=== PATIENT | female | born 1935 | race Caucasian/White ===

== ENCOUNTER → 2018-03-20 09:53 | Outpatient (CLI) | payer MEDICARE, BC, SELFPAY ==
[2018-03-20 12:36] LABS: Anion Gap 7 (5-15); BUN 11 mg/dL (7-18); BUN/Creat Ratio 12.7 RATIO (10-20); Calcium,Total 9.2 mg/dL (8.5-10.1); Chloride 107 mmol/L (98-107); Cholesterol 199 mg/dL (200); Creatinine, Serum 0.86 mg/dL (0.55-1.02); EST Glomerular Filtration Rate 67 mL/min (>60); Est Glom Filt Rate - Afr Amer 81 mL/min (>60); Glucose 93 mg/dL (74-106); High Density Lipoprotein 61 mg/dL; Potassium 4.1 mmol/L (3.5-5.1); Sodium Level 143 mmol/L (136-145); Triglycerides 112 mg/dL; Very Low Density Lipoprotein 22 mg/dL (5-40)
[2018-03-20 13:08] LABS: Microalbumin,Random Urine 34.4 mg/L (NO RANGE EST.); Microalbumin:Creatinine Ratio 15.4 mg/g CRE (<30 mg/g CRE)
== END ==
PROVIDERS: Visit Provider Family Medicine
DX: I10 Essential (primary) hypertension (principal)
CPT/HCPCS: 36415; 80048; 80061; 82043; 82570

== ENCOUNTER → 2018-03-27 07:46 | Outpatient (CLI) | payer MEDICARE, BC, SELFPAY ==
--- NOTE | 2018-03-27 07:49 | CDU_ITS ---
Reason For Study: occlusion of left carotid artery Rt. Velocities/BP Lt. Velocities/BP Prox CCA 109.6/24.6 cm/sec. Prox CCA 810.5/18.8 cm/sec. Mid CCA 108/25.2 cm/sec. Mid CCA 74.5/19.3 cm/sec. Dist CCA 75.0/17.0 cm/sec. Dist CCA 78.6/19.9 cm/sec. Prox ICA 66.8/12.3 cm/sec. Prox ICA 74.5/14.1 cm/sec. Mid ICA 75.0/19.9 cm/sec. Mid ICA 51.0/18.2 cm/sec. Dist ICA 65.3/24.1 cm/sec. Dist ICA 73.4/25.5 cm/sec. Rt. ICA/CCA = .7. Lt. ICA/CCA = 1.0. Prox ECA 76.8/10.6 cm/sec. Prox ECA 69.8/14.1 cm/sec. Rt. Vert. 46.9/15.8 cm/sec. Lt. Vert. 58.0/17.0 cm/sec. Right Extracranial There is intimal thickening but no significant atherosclerotic plaque noted in the right common carotid artery. There is intimal thickening but no significant atherosclerotic plaque noted in the right internal carotid artery. There is intimal thickening but no significant atherosclerotic plaque noted in the right external carotid artery. Antegrade flow is noted in the right vertebral artery. Left Extracranial There is intimal thickening but no significant atherosclerotic plaque noted in the left common carotid artery. There is heterogeneous, irregular atherosclerotic plaque noted in the left internal carotid artery. There is intimal thickening but no significant atherosclerotic plaque noted in the left external carotid artery. Antegrade flow is noted in the left vertebral artery. Procedure Carotid Duplex [id number]. The exam was diagnostic. Exam performed in department. Interpretation Summary No significant atherosclerotic plaque or stenosis noted in the right internal carotid artery. Mild (<50%) stenosis left extracranial internal carotid. Flow within the vertebral arteries is antegrade bilaterally. Ordering Physician: Tawanda Muñiz Performed By: Lucio Arana RVT
== END ==
PROVIDERS: Family Provider Family Medicine; PCP Family Medicine; Visit Provider Family Medicine
DX: I65.22 Occlusion and stenosis of left carotid artery (principal)
CPT/HCPCS: 93880

== ENCOUNTER → 2018-07-26 14:24 | Outpatient (CLI) | payer MEDICARE, BC, SELFPAY ==
[2018-07-26 16:15] LABS: Anion Gap 8 (5-15); BUN 13 mg/dL (7-18); BUN/Creat Ratio 13.2 RATIO (10-20); Calcium,Total 9.6 mg/dL (8.5-10.1); Chloride 105 mmol/L (98-107); Creatinine, Serum 0.98 mg/dL (0.55-1.02); EST Glomerular Filtration Rate 57 mL/min (>60); Est Glom Filt Rate - Afr Amer 70 mL/min (>60); Glucose 73 mg/dL (74-106); Magnesium 2.2 mg/dL (1.6-2.6); Potassium 3.8 mmol/L (3.5-5.1); Sodium Level 142 mmol/L (136-145); Thyroid Stim Hormone (TSH) 1.62 uIU/mL (0.358-3.74)
== END ==
PROVIDERS: Family Provider Family Medicine; PCP Family Medicine; Visit Provider Family Medicine
DX: I49.9 Cardiac arrhythmia, unspecified (principal)
CPT/HCPCS: 36415; 80048; 83735; 84443

== ENCOUNTER → 2018-09-07 10:21 | Outpatient (CLI) | payer MEDICARE, BC, SELFPAY ==
[2015-11-13 16:00] VITALS: BMI 24.0
[2018-09-07 12:25] LABS: Cholesterol 189 mg/dL (200); High Density Lipoprotein 73 mg/dL; Triglycerides 101 mg/dL; Very Low Density Lipoprotein 20 mg/dL (5-40)
== END ==
PROVIDERS: Family Provider Family Medicine; PCP Family Medicine; Visit Provider Family Medicine
DX: I70.91 Generalized atherosclerosis (principal)
CPT/HCPCS: 36415; 80061

== ENCOUNTER 2019-02-24 16:38 | Emergency (ER) | payer MEDICARE, BC, SELFPAY ==
[2019-02-24 16:38] VITALS: BP 146/92; PULSE 79; RESP 16; TEMP 37; O2SAT 94; BMI 22.2
--- NOTE | 2019-02-24 18:31 | EKG12_ITS ---
Test Reason : Blood Pressure : / mmHG Vent. Rate : 068 BPM Atrial Rate : 068 BPM P-R Int : 148 ms QRS Dur : 072 ms QT Int : 392 ms P-R-T Axes : 041 018 037 degrees QTc Int : 416 ms Normal sinus rhythm Normal ECG Confirmed by CELINE GILBERT, KAYDEN ([id number]), editorial project manager RASHEED LOPEZ ([id number]) on 02/28/2019 9:09:19 AM Referred By: TINO Confirmed By:KAYDEN BERGER MD
--- NOTE | 2019-02-24 18:34 | ED.DCSUM_ITS ---
- ER Visit Summary Date of Service: 02/24/19 Chief Complaint: Back pain History of Present Illness: The patient is a 83 F who presents for thoracic back pain that started last evening and now is radiating around to the bilateral lateral lower chest/upper abdomen. Patient has no history of injury. Pain is worse with movement and breathing. Improved with sitting still. Pain is gradually worsening. She denies any fever, shortness of breath, cough, nausea, vomiting, diarrhea or urinary symptoms. Patient has a history of hypothyroidism, asthma, hypertension, GERD. She does not smoke. Physical Examination: Vital signs: afebrile, hemodynamically stable, no hypoxia on room air General: well nourished, well developed, in no distress, significant kyphosis, petite habitus Skin: warm, dry, no rash, no pallor HEENT: normocephalic and atraumatic; PERRL, EOMI, moist mucous membranes Cardiovascular: regular rate and rhythm with systolic murmurs, no peripheral edema, 2+ pulses all distal extremities Respiratory: No increased work of breathing, lungs are clear to auscultation bilaterally, no rales, rhonchi or wheezing Abdominal: Abdomen is soft, nontender with normoactive bowel sounds, no guarding or rebound, no masses MSK: Moves all extremities, no deformities, normal strength; no midline tenderness deformities or step-offs of the thoracic or lumbar spine, no paraspinal muscular tenderness, no rash noted to the torso Neuro: Awake and alert, oriented ?4. No facial droop, sensation and motor function intact and symmetric Test Results: Abnormal Lab Results 02/24/19 02/24/19 02/24/19 18:40 18:40 18:45 WBC 8.4 RBC 4.14 L Hgb 13.0 Hct 39.3 MCV 94.9 MCH 31.4 MCHC 33.1 RDW 12.7 RDW Differential 43.8 Plt Count 194 MPV 9.8 Immature Gran % (Auto) 0.200 Neut % (Auto) 72.8 H Lymph % (Auto) 13.3 L [place] % (Auto) 8.3 Eos % (Auto) 5.2 H Baso % (Auto) 0.2 Absolute Neuts (auto) 6.1 Absolute Lymphs (auto) 1.12 Total Counted Not Reportable Sodium 144 Potassium 4.0 Chloride 108 H Carbon Dioxide 28.0 Anion Gap 8 BUN 11 Creatinine 0.84 Estim Creat Clear Calc 39.97 Est GFR (MDRD) Af Amer 83 Est GFR (MDRD) Non-Af 68 BUN/Creatinine Ratio 13.0 Glucose 99 Calcium 9.5 Total Bilirubin 0.40 AST 14 L ALT 26 Alkaline Phosphatase 92 Troponin I < 0.015 Total Protein 7.1 Albumin 3.7 Globulin 3.4 Albumin/Globulin Ratio 1.1 Lipase 128 Urine Color Yellow Urine Clarity Sl. Cloudy Urine pH 6.0 Ur Specific [place] 1.015 Urine Protein Negative Urine Glucose (UA) Normal Urine Ketones 50 H Urine Occult Blood 10 H Urine Nitrite Negative Urine Bilirubin Negative Urine Urobilinogen Normal Ur Leukocyte Esterase 500 H Urine RBC 0 SEEN Urine WBC 50-100 SEEN Ur Squamous Epith Cells 0 SEEN Urine Bacteria 2+ Urine Mucus 0 SEEN Clinical Impression(s) from Imaging Studies Chest X-Ray 02/24/19 18:50 IMPRESSION: Cardiomegaly with hyperexpansion. No acute finding. Electronically Signed: Jose G Talavera MD at 19:12 EDT , Service support , Medications Given Discontinued Medications Cephalexin (Keflex) 500 mg PO X1 ONE Stop: 02/24/19 20:21 Last Admin: 02/24/19 20:27 Dose: 500 mg Emergency Department Course and Treatment: Patient was offered and declined pain medication. She had no findings on physical exam consistent with obvious musculoskeletal pain. Because of the pain in the thoracic back radiating around into the lower chest/upper abdomen, work-up was performed. EKG showed a sinus rhythm with no ischemic changes. Troponin negative. CBC and BMP were unremarkable. No hepatic abnormalities. Chest x-ray showed no acute process. Urinalysis was consistent with UTI. Patient had initially denied any urinary symptoms, and we discussed that because of her petite build and the kyphosis, interpretation of intra-abdominal pain may be more difficult to interpret. She states that now she remembers she has had prior UTIs in which she felt more upper back pain. Patient was started on Keflex for treatment of UTI. Patient was discharged home with return precautions. Treatment Plan: [] Disposition: [] Impression: UTI, concern for early pyelonephritis This note was generated with [employer] software. It may contain incorrect words, spelling, and punctuation that were not noted in review of the chart prior to signing ED Disposition - Plan for ED Patient: Disposition: Home or Assisted Living Instructions: ED UTI Cystitis Female Prescriptions: Cephalexin [Keflex] 500 mg PO Q12 #20 cap Referrals: Tawanda Muñiz MD [Primary Care Provider] - 1-2 Days if not improving Additional Instructions: Take the antibiotic twice daily as prescribed for the full 10 days, even if you feel better before the medication is complete. You may use [id number] pain medication as needed for pain. If you are not having improvement after 2 to 3 days of antibiotics, please follow-up with your doctor for another evaluation. If at any time your condition worsens or you have any new or co ncerning symptoms, please return immediately to the emergency department for another evaluation.
--- NOTE | 2019-02-24 18:50 | RAD_ITS ---
STUDY: X-RAY CHEST REASON FOR EXAM: Female, 83 years old. Back pain. Shortness of breath. TECHNIQUE: Frontal and lateral views of the chest. COMPARISON: None. FINDINGS: The lungs are hyperexpanded. There is no demonstrated pleural abnormality. There is cardiomegaly. Normal mediastinum and keaton. Normal visualized pulmonary arteries. There is atherosclerotic calcification of the aortic arch with tortuosity. There is thoracic osteopenia with marked anterior wedge compression deformity of a midthoracic vertebral body with substantial increased kyphosis. Normal visualized ribs, clavicles, and shoulders. There is a hiatal hernia. RAD/Chest PA and Lateral IMPRESSION: Cardiomegaly with hyperexpansion. No acute finding. Electronically Signed: Jose G Talavera MD at 19:12 EDT , Service support ,
[2019-02-24 18:53] LABS: Mucous, Urine 0 SEEN /hpf (<or=2+); Red Blood Cells-Urine 0 SEEN /hpf (0-5); Squamous Epithelial Cells - UA 0 SEEN /hpf (5-10)
[2019-02-24 18:54] LABS: Absolute Lymphocyte Count 1.12 X10^3/ul (0.83-4.51); Absolute Neutrophil Count 6.1 X10^3/uL (2.0-7.7); Basophil# 0.02 X10^3/uL; Basophil% 0.2 % (0-1); Eosinophil# 0.44 X10^3/uL; Eosinophils% 5.2 % (0-5); Hematocrit 39.3 % (37-47); Lymphocyte # 1.12 X10^3/ul (4.0); Lymphocyte % 13.3 % (19-41); Mean Corp Hgb Conc 33.1 g/gl (32-36); Mean Corpuscular Hgb 31.4 pg (27.0-32.0); Mean Corpuscular Volume 94.9 fL (81-99); Mean Platelet Vol. 9.8 fl (6.2-12.0); Monocyte% 8.3 % (0-10); Neutrophil % 72.8 % (47-70); Platelet Count 194 K/mm3 (150-450); RBC Distribution Width CV 12.7 % (11.6-14.6); RBC Distribution Width SD 43.8 fl (35.1-43.9); Red Blood Count 4.14 M/mm3 (4.2-5.4); White Blood Count 8.4 K/mm3 (4.4-11.0)
[2019-02-24 18:55] LABS: POSITIVE COUNT NO; POSITIVE DIFFERENTIAL NO; POSITIVE MORPHOLOGY NO
[2019-02-24 18:55] LABS: Color, Urine Yellow (Yellow); Glucose, Dipstick Normal (Normal); Ketone-Dipstick 50 mg/dl (Negative); Leukocyte Esterase-Dipstick 500 /ul (Negative); Nitrite-Dipstick Negative (Negative); Occult Blood-Urine 10 /ul (Negative); Protein-Dipstick Negative (Negative); Specific Gravity, Urine 1.015 (1.002-1.030); Urine Bilirubin Dipstick Negative (Negative); Urine Clarity Sl. Cloudy (Clear); Urine Urobilinogen Normal (Normal)
[2019-02-24 19:11] LABS: White Blood Cells 50-100 SEEN /hpf (0-5)
[2019-02-24 19:12] LABS: Bacteria 2+ /hpf (None Seen)
[2019-02-24 19:13] LABS: ALB/GLOB Ratio 1.1 RATIO (0.9-2.4); AST(SGOT) 14 U/L (15-37); Alanine Aminotransfer ALT/SGPT 26 U/L (13-56); Albumin, Serum 3.7 g/dL (3.2-5.0); Alkaline Phosphatase 92 U/L (45-117); Anion Gap 8 (5-15); BUN 11 mg/dL (7-18); Calcium,Total 9.5 mg/dL (8.5-10.1); Chloride 108 mmol/L (98-107); Creatinine, Serum 0.84 mg/dL (0.55-1.02); EST Glomerular Filtration Rate 68 mL/min (>60); Est Glom Filt Rate - Afr Amer 83 mL/min (>60); Estimated Creatinine Clearance 39.97 ml/min; Globulin 3.4 g/dL (2.2-4.2); Glucose 99 mg/dL (74-106); Lipase 128 U/L (73-393); Protein, Total 7.1 g/dL (6.4-8.2); Sodium Level 144 mmol/L (136-145)
[2019-02-24] MEDS: Cephalexin 250 MG Capsule 500 MG PO (20:27)
[2019-02-24 20:28] VITALS: BP 144/98; PULSE 79; RESP 17; O2SAT 100
--- NOTE | 2019-02-24 20:31 | ED.RN ---
IV DC'ED, CATHETER INTACT, SMALL GAUZE DRESSING PLACED. DISCHARGE INSTRUCTIONS GIVEN TO AND REVIEWED WITH PATIENT, PATIENT DENIES QUESTIONS OR CONCERNS AND VOICES UNDERSTANDING OF DISCHARGE INSTRUCTIONS. PT AMBULATES OUT OF ROOM WITHOUT DIFFICULTY.
== END 2019-02-24 20:32 | disposition home or self-care (01) ==
PROVIDERS: Emergency Provider Emergency Medicine; Family Provider Family Medicine; PCP Family Medicine
DX: N39.0 Urinary tract infection, site not specified (principal); N12 Tubulo-interstitial nephritis, not specified as acute or chronic; M40.209 Unspecified kyphosis, site unspecified; R01.1 Cardiac murmur, unspecified; I11.9 Hypertensive heart disease without heart failure; E03.9 Hypothyroidism, unspecified; J45.909 Unspecified asthma, uncomplicated; K21.9 Gastro-esophageal reflux disease without esophagitis; Z87.440 Personal history of urinary (tract) infections; Z79.899 Other long term (current) drug therapy
CPT/HCPCS: 71046; 80053; 81001; 83690; 84484; 85025; 87077; 87086; 87088; 87186; 93005; 99284

== ENCOUNTER → 2019-03-01 | Outpatient (CLI) | payer MEDICARE, BC, SELFPAY ==
[2019-02-24 16:38] VITALS: BMI 22.2
--- NOTE | 2019-03-01 15:55 | CT_ITS ---
STUDY: CT CHEST WITHOUT CONTRAST REASON FOR EXAM: Female, 83 years old. Pain RADIATION DOSAGE (If Supplied By Facility): DLP = ( 603.35 ) mGycm TECHNIQUE: Transaxial imaging was performed without the administration of intravenous contrast material. Coronal and sagittal reformatted images were created. Individualized dose optimization techniques were used for this CT. COMPARISON: Chest x-ray February 24, 2019. FINDINGS: There are no pulmonary infiltrates or pleural effusions. There are no pulmonary nodules or masses. There is no pneumothorax. The heart and pericardium are within normal limits. There is no thoracic lymphadenopathy. There is no evidence of thoracic aortic aneurysm. There is a large hiatal hernia. There is exaggerated thoracic kyphosis. Multiple compression fractures of the thoracic spine are present. These correspond in appearance to the comparison chest x-ray. There is stable retrolisthesis at the lower thoracic spine, also corresponding to that seen on comparison chest x-ray. Multilevel osteophytosis and disc space loss is present. CT/Chest without Contrast IMPRESSION: No acute pathology in the chest. Large hiatal hernia. Multilevel degenerative changes with compression fractures and exaggerated thoracic kyphosis as described above. Electronically Signed: Sergio Kumari, at 16:40 EDT Tel , Service support ,
--- NOTE | 2019-03-01 15:55 | CT_ITS ---
STUDY: CT ABDOMEN WITHOUT CONTRAST REASON FOR EXAM: Female, 83 years old. Pain RADIATION DOSAGE (If Supplied By Facility): CTDIvol = ( 10.25 ) mGy, DLP = ( 603.35 ) mGycm TECHNIQUE: Transaxial images were obtained without intravenous contrast, and without oral contrast. Sagittal and coronal images were reconstructed. Individualized dose optimization techniques were used for this CT. COMPARISON: None. FINDINGS: The visualized lung bases are unremarkable. The visualized portions of the heart are within normal limits. Normal liver. Normal gallbladder and extrahepatic biliary system. Normal spleen. Normal pancreas. Normal bilateral adrenal glands. Normal right kidney. Normal left kidney. There is a moderate hiatal hernia. Normal small intestine. Colonic diverticulosis is present. The appendix is visualized and appears normal. Normal abdominal aorta. Normal inferior vena cava. Normal retroperitoneum. Normal abdominal wall. There is an age-indeterminate partial compression fracture of the L1 vertebral body. Moderate to prominent degenerative changes are present from T12 through L2. Minimal retrolisthesis is present at the T12-L1 level, and L1-L2 level. There is exaggerated thoracic kyphosis. CT/Abdomen without IV Contrast IMPRESSION: No acute intra-abdominal pathology identified. Nonacute findings as described above. Electronically Signed: Sergio Kumari, at 16:31 EDT Tel , Service support ,
== END | disposition home or self-care (01) ==
LOC: CT 15:52
PROVIDERS: Family Provider Family Medicine; PCP Family Medicine; Referring Provider Family Medicine; Visit Provider Family Medicine
DX: M54.9 Dorsalgia, unspecified (principal)
CPT/HCPCS: 71250; 74150

== ENCOUNTER → 2019-03-06 | Outpatient (CLI) | payer MEDICARE, BC, SELFPAY ==
[2019-02-24 16:38] VITALS: BMI 22.2
--- NOTE | 2019-03-06 09:59 | NM_ITS ---
CLINICAL: 83-year-old female with reported history of thoracic-lumbar spine compression fractures. WHOLE BODY 99m Tc MDP RADIONUCLIDE BONE SCINTIGRAPHY COMPARISON: CT of the chest and abdomen reports 03/01/2019 FINDINGS: Following the intravenous administration of 25.6 mCi of 99m Tc MDP, whole body bone images reveal: 1. Increased radiopharmaceutical concentration is diffusely defined at the level of the ninth thoracic vertebra. 2. Enhanced uptake is identified in the 12th thoracic vertebra posteriorly on the left and right, first-fourth lumbar vertebra posteriorly on the left, third thoracic vertebra posteriorly on the right, fourth thoracic vertebra posteriorly on the left, sternoclavicular compartment of both shoulders, acromioclavicular compartment of the left shoulder, the left hand, bilateral knees, the right midfoot. 3. The remaining skeletal structures are scintigraphically unremarkable with normal-appearing renal images and urinary bladder activity identified. An increase in tracer distribution is defined in the bilateral maxilla and inter-orbital aspect of the calvarium most consistent with periostitis. NM/Bone Scan Whole Body IMPRESSION: 1. The increased radiopharmaceutical concentration visualized in the ninth thoracic vertebra is most consistent with trauma-compression fracture. In patients > 65 years of age, increased radiopharmaceutical concentration on bone scintigraphy in uncomplicated documented fracture, may take > 18 months for complete resolution. (Manjinder et al, Seminars of [employer] Medicine, 13:104, 1983). 2. 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 Electronically Signed: Moisés Kiser DO at 10:06 EDT Tel , Service support ,
== END | disposition home or self-care (01) ==
LOC: NM 09:55
PROVIDERS: Family Provider Family Medicine; PCP Family Medicine; Referring Provider Family Medicine; Visit Provider Family Medicine
DX: M54.9 Dorsalgia, unspecified (principal)
CPT/HCPCS: 78306

== ENCOUNTER 2019-03-23 10:21 | Day surgery (SDC) | payer MEDICARE, BC, SELFPAY ==
[2019-03-23] VITALS (7 sets, daily range): BP systolic 109–136; BP diastolic 52–81; PULSE 70–95; RESP 16–18; TEMP 36.6–37; O2SAT 94–100; BMI 21.7
--- NOTE | 2019-03-23 12:00 | RAD_ITS ---
STUDY: X-RAY - THORACIC SPINE REASON FOR EXAM: Female, 83 years old. TECHNIQUE: view(s) of the thoracic spine were obtained. COMPARISON: None. FINDINGS: 2 images were done in the OR Two metallic probes noted superimposing the pedicles of L1. Electronically Signed: Kailee Monaco, at 16:19 EDT Tel , Service support , RAD/Thoracic Spine 2 Views
[2019-03-23] MEDS: Bupivacaine Mpf 0.5% 30 ML VIAL (12:45)
[2019-03-23] MEDS: Cefazolin 2 GM in 0.9% Normal Saline 100 ML IV (12:57)
== END 2019-03-23 16:04 | disposition home or self-care (01) ==
LOC: PAT 10:23 → AC 10:24
PROVIDERS: Family Provider Family Medicine; PCP Family Medicine; Referring Provider Anesthesiology Pain Medicine; Visit Provider Anesthesiology Pain Medicine
PROC: (CPT 22513; principal; 2019-03-23 11:45)
DX: M80.08XA Age-related osteoporosis with current pathological fracture, vertebra(e), initial encounter for fracture (principal); M19.90 Unspecified osteoarthritis, unspecified site; K21.9 Gastro-esophageal reflux disease without esophagitis; E07.9 Disorder of thyroid, unspecified; Z79.899 Other long term (current) drug therapy; I10 Essential (primary) hypertension; J45.909 Unspecified asthma, uncomplicated; K44.9 Diaphragmatic hernia without obstruction or gangrene
CPT/HCPCS: 22513; 22515; 72070; 76000; J7120; J2405; J3490

== ENCOUNTER 2019-05-05 09:13 | Emergency (ER) | payer MEDICARE, BC, SELFPAY ==
[2019-03-23 10:49] VITALS: BMI 21.7
[2019-05-05 09:13] VITALS: BP 190/76; PULSE 78; RESP 18; TEMP 37.1; O2SAT 95; BMI 22.4
--- NOTE | 2019-05-05 09:22 | CT_ITS ---
STUDY: CT BRAIN WITHOUT CONTRAST REASON FOR EXAM: Female, 83 years old. Sequela of closed head injury after fall today. RADIATION DOSAGE (If Supplied By Facility): CTDIvol = ( 44.99 ) mGy, DLP = ( 745.49 ) mGycm TECHNIQUE: Transaxial CT imaging of the brain was performed without administration of intravenous contrast material. Multiplanar reformations are submitted for interpretation. Individualized dose optimization techniques were used for this CT. COMPARISON: No relevant priors. FINDINGS: Normal soft tissue structures. Incidental note is made of lytic lesions within the inner table of the occipital bone that may represent prominent arachnoid granulations. There is mild cerebral atrophy with widening of the extra-axial spaces and ventricular dilatation. There are areas of decreased attenuation within the white matter tracts of the supratentorial brain, consistent with microvascular disease changes. Normal basal ganglia and thalami. Normal brainstem. There is mild cerebellar atrophy. There is no intracranial hemorrhage. There is mild atherosclerotic calcification of the intracranial arteries. There is mucoperiosteal thickening within the ethmoid sinuses. 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 CT/Brain/Head without Contrast IMPRESSION: 1. Chronic involutional changes of the brain. 2. No CT evidence of acute intracranial hemorrhage. Electronically Signed: Lolis Wu MD at 11:50 EDT , Service support ,
--- NOTE | 2019-05-05 09:22 | CT_ITS ---
STUDY: CT FACIAL BONES WITHOUT CONTRAST REASON FOR EXAM: Female, 83 years old. Status post fall, pain abrasions RADIATION DOSAGE (If Supplied By Facility): CTDIvol = ( 29.38 ) mGy, DLP = ( 598.88 ) mGycm TECHNIQUE: The patient was scanned in a multi detector CT scanner. Sagittal and coronal images were reconstructed. Individualized dose optimization techniques were used for this CT. COMPARISON: November 03, 2015 CT scan sinuses. FINDINGS: There is visualized and interval development of right perinasal soft tissue edema. There is slight cortical irregularity in the anterior aspect of the left-sided nasal bone that suggests possible prior injury. Normal orbital best and orbital contents. Normal nasal bones and anterior nasal spine. Normal facial bones. There is no demonstrated fracture. There is a hypertrophied calcified appearance of the inferior aspect of the right-sided maxillary sinus stable since prior study with an associated maxillary mucosal retention cyst. There is a stable left side middle turbinate scarlett bullosa. There is mild ethmoid sinus mucosal thickening. There is mild sphenoid and frontal sinus mucosal thickening. There is visualized degenerative change in the cervical spine. CT/Sinus/Facial Bone IMPRESSION: Right side walt- Nasal soft tissue edema. Stable appearing nasal bones with slight cortical irregularity in the left side that suggests prior fracture similar to prior study Mild chronic-appearing sinusitis. Electronically Signed: Jerrica Rivera MD at 11:45 EDT Tel , Service support ,
--- NOTE | 2019-05-05 10:09 | RAD_ITS ---
STUDY: X-RAY - RIGHT WRIST REASON FOR EXAM: Female, 83 years old. Right-sided wrist pain after fall. TECHNIQUE: 3 view(s) of the wrist were obtained. COMPARISON: Prior comparison studies are not available for review at this time. FINDINGS: There is demineralization of the radius and ulna. There is degenerative arthrosis of the radiocarpal articulation. There is a positive ulnar variance. There appears to be undisplaced mildly impacted fracture of the distal radial metaphysis. 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 Appear to be normal intercarpal articulations otherwise. There is degenerative arthrosis of the carpometacarpal articulation of the thumb. Normal second through fifth carpometacarpal articulations. There is demineralization of the metacarpal bones. There is moderate soft tissue swelling. RAD/Wrist min 3 Views IMPRESSION: 1. Acute mildly impacted fracture of the distal radial metaphysis. 2. Osteoporosis. Electronically Signed: Lolis Wu MD at 11:34 EDT , Service support ,
--- NOTE | 2019-05-05 10:09 | RAD_ITS ---
STUDY: X-RAY - RIGHT HAND REASON FOR EXAM: Female, 83 years old. Right-sided hand pain after recent fall. TECHNIQUE: 3 view(s) of the hand. COMPARISON: Radiographs of the right wrist dated May 05, 2019. FINDINGS: There is joint space narrowing of the radiocarpal articulation consistent with degenerative arthrosis. There is a positive ulnar variant of the distal radioulnar articulation. There appears to be mildly impacted fracture of the distal radial metaphysis. There is diffuse demineralization of the carpal bones. 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 There is degenerative arthrosis of the carpometacarpal (CMC) articulation of the thumb. Normal second through fifth carpometacarpal joints. Normal metacarpi. There is degenerative arthrosis of the metacarpophalangeal (MCP) joints. There is degenerative arthrosis of the interphalangeal joint of the thumb with articular joint space narrowing. Normal proximal and distal phalanges of the thumb. Normal metacarpophalangeal joints of the second through fifth fingers. There is diffuse articular joint space narrowing of the proximal and distal interphalangeal joints of the second through fifth fingers, but without erosive changes or periarticular soft tissue swelling. Normal phalanges of the second through fifth fingers. There is moderate soft tissue swelling of the wrist. RAD/Hand Min 3 Views IMPRESSION: 1. Mildly impacted probably acute fracture of the distal radius. 2. Osteoporosis. 3. Ulna plus variant. Electronically Signed: Lolis Wu MD at 11:41 EDT , Service support ,
[2019-05-05] MEDS: Diphth,Pertuss(Acell),Tet Vac 0.5 ML Vial IM (11:45)
--- NOTE | 2019-05-05 11:55 | ED.VIS.GEN ---
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 She sustained abrasions to her face. Initially she denied pain to her extremities but then developed pain to her right fifth digit and wrist. Denies head trauma other than her face and denies loss of consciousness. Denies paresthesia or weakness neck or back pain. Prior similar symptoms: No Recent Illness/Hospitalization: No <Glenna Harman - Last Filed: 05/05/19 12:16> <Shannan Lopez - Last Filed: 05/05/19 16:03> Chief Complaint: Fall Past Medical History Surgical History: noncontributory Smoking Status: Never smoker <Glenna Harman - Last Filed: 05/05/19 12:16> <Shannan Lopez - Last Filed: 05/05/19 16:03> - Allergies and Home Meds Allergies/Adverse Reactions: Allergies Sulfa (Sulfonamide Antibiotics) Allergy (Verified 03/20/19 13:53) Unknown Primary Care Physician: Tawanda Muñiz MD [Primary Care Provider] - Omega Wu MD [STAFF PHYSICIAN] - Review of Systems General: Denies: Chills, Fever Eyes: Denies: Visual changes - left, Blurred vision - left Cardiovascular: Denies: Chest pain, Palpitations, Heart racing Respiratory: Denies: Dyspnea, Cough Gastrointestinal: Denies: Abdominal pain, Nausea, Vomiting Genitourinary: Denies: Dysuria, Hematuria Musculoskeletal: Reports: Extremity Pain - Right wrist and finger. Denies: Neck pain, Back pain Skin: Reports: Abrasions - Bilateral knees/ face Neurological: Denies: Headache, Weakness, Parasthesia, Numbness <Glenna Harman - Last Filed: 05/05/19 12:16> Physical Exam Vital Signs/Narrative: Vital Signs Temp Pulse Resp BP Pulse Ox 05/05/19 09:13 98.7 F 78 18 190/76 H 95 Inital Vital Signs reviewed: Yes General: Well nourished, Well developed Head: Normocephalic, Trauma, - - Abrasion to forehead nose and chin. There is a small superficial laceration to the buccal surface of her lower lip without bleeding. No dental injury or denture injury noted. No malocclusion noted. There is nasal swelling noted without nasal septal hematoma. No active nosebleed seen. There is blood in bilateral nares. Eyes: Perrl, EOMI. Negative for: Pale conjunctiva ENT: Moist mucous membranes, No rhinorrhea Neck: Supple, Nontender, No lymphadenopathy Cardiovascular: Regular rate, Regular rhythm, No murmurs Respiratory: No distress, CTA bilaterally, Chest nontender Abdomen: Soft, Nontender, Nondistended Back: Nontender, - - Chronic kyphosis Extremities: Tenderness - Right wrist tenderness with full range of motion. She does have a previous old fracture of this wrist. She developed a contusion to her right fifth metacarpal region. X-ray was negative for fracture. Abrasions of bilateral knees without pain with range of motion. Pelvis and hips are stable. Review Skin: No rash Neurological: Alert, Oriented x3 Psychological: Normal affect, Normal Mood <Glenna Harman - Last Filed: 05/05/19 12:16> Vital Signs/Narrative: Vital Signs Pulse Resp BP Pulse Ox 05/05/19 12:44 70 16 167/75 H 93 <Shannan Lopez - Last Filed: 05/05/19 16:03> Diagnostic/Tx/Re-eval R wrist X Ray : Acute mildly impacted fracture of the distal radial metaphysis. Right hand x-ray was unremarkable. CT of head and facial bones reveals no acute fracture or acute intercranial injury per radiology. - Medical Decision Making CT and x-rays were ordered to rule out trauma. Right wrist x-ray reveals an acute mildly impacted nondisplaced distal radius fracture. Patient would do well in a Velcro splint and orthopedic follow-up. Patient has a wrist splint at home and declined receiving one in the emergency department. She is a patient of Dr. Omega Wu from her previous wrist fracture. She declined any pain medication. She was instructed to use ice to her sore areas. She remained hemodynamically stable and neurologically intact during her evaluation. She is comfortable with discharge plan. <Glenna Harman - Last Filed: 05/05/19 12:16> - Medical Decision Making Patient seen and examined with nurse practitioner. Patient had a mechanical trip and fall this morning. She complains of facial pain and pain to her right wrist and hand. She did not lose consciousness. Physical exam findings significant for abrasions across the nasal area and mild along the fifth finger of the right hand. Imaging studies are reviewed. She has a wrist splint that she will wear and follow-up with orthopedics. <Shannan Lopez - Last Filed: 05/05/19 16:03> ED Disposition <Glenna Harman - Last Filed: 05/05/19 12:16> <Shannan Lopez - Last Filed: 05/05/19 16:03> - Plan for ED Patient: Disposition: Home or Assisted Living Diagnosis: Right wrist fracture, Abrasions of multiple sites Instructions: FALL, Mechanical Referrals: Tawanda Muñiz MD [Primary Care Provider] - Omega Wu MD [STAFF PHYSICIAN] -
[2019-05-05 12:44] VITALS: BP 167/75; PULSE 70; RESP 16; O2SAT 93
--- NOTE | 2019-05-05 12:48 | ED.RN ---
pt refused wrist splint stating she had one at home. pt was freely moving wrist in room.
== END 2019-05-05 12:46 | disposition home or self-care (01) ==
PROVIDERS: Emergency Provider Nurse Practitioner; Family Provider Family Medicine; PCP Family Medicine
DX: S52.591A Other fractures of lower end of right radius, initial encounter for closed fracture (principal); S00.81XA Abrasion of other part of head, initial encounter; S80.212A Abrasion, left knee, initial encounter; S80.211A Abrasion, right knee, initial encounter; S00.31XA Abrasion of nose, initial encounter; S01.511A Laceration without foreign body of lip, initial encounter; M40.209 Unspecified kyphosis, site unspecified; W01.0XXA Fall on same level from slipping, tripping and stumbling without subsequent striking against object, initial encounter; Y93.9 Activity, unspecified; Y92.9 Unspecified place or not applicable
CPT/HCPCS: 70450; 70486; 73110; 73130; 90715; 99283

== ENCOUNTER → 2019-06-26 11:25 | Outpatient (CLI) | payer MEDICARE, BC, SELFPAY ==
--- NOTE | 2019-06-26 11:29 | RAD_ITS ---
STUDY: X-RAY - RIGHT ELBOW REASON FOR EXAM: Female, 83 years old. Worsening pain after falling 2 months ago. TECHNIQUE: 3 view(s) of the elbow. COMPARISON: None. FINDINGS: No visible fracture. No osseous destruction. Alignment anatomic. Mild degenerative changes. Soft tissues unremarkable. RAD/Elbow min 3 Views IMPRESSION: No acute osseous abnormality. Electronically Signed: Ben Jama, at 22:51 EDT Tel , Service support ,
--- NOTE | 2019-06-26 11:29 | RAD_ITS ---
STUDY: X-RAY - RIGHT SHOULDER REASON FOR EXAM: Female, 83 years old. Pain after a fall TECHNIQUE: 4 view(s) of the shoulder. COMPARISON: None. FINDINGS: There is moderate degenerative arthrosis of the glenohumeral articulation. There is degenerative arthrosis of the acromioclavicular joint without inferior osseous spur formation. Normal acromion. There is demineralization of the humerus and visualized osseous structures. The soft tissue structures are unremarkable. Normal visualized pulmonary apex. RAD/Shoulder min 2 Views IMPRESSION: Degenerative arthrosis Electronically Signed: Han Jung MD at 11:53 EDT , Service support ,
== END ==
PROVIDERS: Family Provider Family Medicine; PCP Family Medicine; Referring Provider Family Medicine; Visit Provider Family Medicine
DX: M79.601 Pain in right arm (principal); M25.521 Pain in right elbow
CPT/HCPCS: 73030; 73080

== ENCOUNTER → 2019-08-21 15:31 | Outpatient (CLI) | payer MEDICARE, BC, SELFPAY ==
--- NOTE | 2019-08-21 15:35 | RAD_ITS ---
STUDY: X-RAY - THORACIC SPINE REASON FOR EXAM: Female, 83 years old. Low back pain, history of compression fractures with kyphoplasty TECHNIQUE: 2 view(s) of the thoracic spine were obtained. COMPARISON: Prior study of 03/23/2019 FINDINGS: There is an increase in the normal thoracic kyphosis. There is no substantial scoliosis. There is generalized osteopenia. Multilevel thoracic spinal compression deformities are noted. There are status post kyphoplasty changes of T9 and T12.. Normal disc space heights. There is mild old compression deformity of the superior endplate of L1. The soft tissue structures are unremarkable. RAD/Thoracic Spine 2 Views IMPRESSION: Multilevel compression deformities of thoracic vertebrae. Status post vertebroplasty changes of T9 and T12. Severe thoracic kyphosis. Old compression fracture of the superior endplate of L1. There is no evidence of acute fracture or subluxation. Electronically Signed: Ben Harris MD at 20:05 EST , Service support ,
--- NOTE | 2019-08-21 15:45 | RAD_ITS ---
STUDY: X-RAY - LUMBAR SPINE REASON FOR EXAM: Female, 83 years old. Low back pain TECHNIQUE: 2 view(s) of the lumbar spine were obtained. COMPARISON: None FINDINGS: Normal lumbar lordosis. There is a mild lumbar dextroscoliosis. There is a normal alignment of the vertebrae. There is old moderate compression deformity of L1. Status post vertebroplasty changes of T12 are noted. There is narrowing of the T12-L1 and L1-T2 disc spaces. The soft tissue structures are unremarkable. RAD/Lumbar Spine 2 or 3 Views IMPRESSION: Old compression deformities of T12 and L1. Status post T12 vertebroplasty changes. Narrowing of the T12-L1 and L1-2 disc spaces. Mild lumbar dextroscoliosis. Electronically Signed: Ben Harris MD at 18:43 EST , Service support ,
== END ==
PROVIDERS: Family Provider Family Medicine; PCP Family Medicine; Referring Provider Anesthesiology Pain Medicine; Visit Provider Anesthesiology Pain Medicine
DX: M54.9 Dorsalgia, unspecified (principal)
CPT/HCPCS: 72070; 72100

== ENCOUNTER → 2020-06-12 10:39 | Outpatient (CLI) | payer MEDICARE, BC, SELFPAY ==
[2020-06-12 12:42] LABS: Absolute Lymphocyte Count 1.15 X10^3/uL (0.83-4.51); Absolute Neutrophil Count 4.3 X10^3/uL (2.0-7.7); Basophil# 0.03 X10^3/uL; Basophil% 0.5 % (0-1); Eosinophil# 0.51 X10^3/uL; Eosinophils% 7.7 % (0-5); Hemoglobin 13.4 g/dL (12.0-15.0); Lymphocyte # 1.15 X10^3/ul (4.0); Lymphocyte % 17.3 % (19-41); Mean Corp Hgb Conc 32.7 g/dL (32-36); Mean Corpuscular Hgb 31.8 pg (27.0-32.0); Mean Corpuscular Volume 97.4 fL (81-99); Mean Platelet Vol. 10.5 fl (6.2-12.0); Monocyte# 0.62 X10^3/uL; Monocyte% 9.3 % (0-10); NRBC Flagged by Analyzer 0 % (0-5); Neutrophil # 4.32 X10^3/uL (2.7-7.7); Neutrophil % 64.9 % (47-70); Platelet Count 221 K/mm3 (150-450); RBC Distribution Width CV 12.2 % (11.6-14.6); RBC Distribution Width SD 43.5 fl (35.1-43.9); Red Blood Count 4.21 M/mm3 (4.2-5.4); White Blood Count 6.7 K/mm3 (4.4-11.0)
[2020-06-12 13:11] LABS: Vitamin B12 1662 pg/mL (211-911); Vitamin D,25 Hydroxy 41.8 ng/mL
[2020-06-12 13:21] LABS: ALB/GLOB Ratio 1.2 RATIO (0.9-2.4); AST(SGOT) 17 U/L (15-37); Alanine Aminotransfer ALT/SGPT 26 U/L (13-56); Albumin, Serum 3.8 g/dL (3.2-5.0); Alkaline Phosphatase 74 U/L (45-117); Anion Gap 6 (5-15); BUN 16 mg/dL (7-18); BUN/Creat Ratio 16.7 RATIO (10-20); Calcium,Total 9.2 mg/dL (8.5-10.1); Chloride 106 mmol/L (98-107); Creatinine, Serum 0.96 mg/dL (0.55-1.02); EST Glomerular Filtration Rate 59 mL/min (>60); Est Glom Filt Rate - Afr Amer 71 mL/min (>60); Ferritin 26 ng/mL (8-252); Globulin 3.3 g/dL (2.2-4.2); Glucose 121 mg/dL (74-106); Magnesium 2.3 mg/dL (1.6-2.6); Potassium 4.3 mmol/L (3.5-5.1); Protein, Total 7.1 g/dL (6.4-8.2); Sodium Level 141 mmol/L (136-145); T4 Free Direct 1.35 ng/dL (0.76-1.46); Thyroid Stim Hormone (TSH) 1.19 uIU/mL (0.358-3.74)
[2020-06-12 13:34] LABS: Microalbumin,Random Urine 43.3 mg/L (NO RANGE EST.)
== END ==
PROVIDERS: PCP Family Medicine; Referring Provider Family Medicine; Visit Provider Family Medicine
DX: I10 Essential (primary) hypertension (principal); M81.0 Age-related osteoporosis without current pathological fracture; K21.9 Gastro-esophageal reflux disease without esophagitis; E03.9 Hypothyroidism, unspecified
CPT/HCPCS: 36415; 80053; 82043; 82306; 82570; 82607; 82728; 83735; 84439; 84443; 85025

== ENCOUNTER 2020-12-04 01:43 | Outpatient (RCR) | payer MEDICARE, BC, SELFPAY ==
[2020-12-04] MEDS: COVID-19 VACC, MRNA(PFIZER)/PF 30 MCG/0.3 ML SYRINGE IM (13:25)
[2020-12-25] MEDS: COVID-19 VACC, MRNA(PFIZER)/PF 30 MCG/0.3 ML SYRINGE IM (13:12)
== END 2020-12-25 23:59 | disposition home or self-care (01) ==
LOC: IMMUN 01:43
PROVIDERS: PCP Family Medicine; Visit Provider Family Medicine
DX: Z23 Encounter for immunization (principal)
CPT/HCPCS: 0001A; 0002A; 91300

== ENCOUNTER 2021-10-26 11:26 | Outpatient (CLI) | payer MEDICARE, BC, SELFPAY ==
[2021-10-26 15:39] LABS: Absolute Lymphocyte Count 1.02 X10^3/uL (0.83-4.51); Absolute Neutrophil Count 4.8 X10^3/uL (2.0-7.7); Basophil# 0.07 X10^3/uL; Eosinophil# 0.36 X10^3/uL; Eosinophils% 5.2 % (0-5); Hematocrit 41.8 % (37-47); Hemoglobin 13.8 g/dL (12.0-15.0); Lymphocyte # 1.02 X10^3/ul (0.83-4.51); Lymphocyte % 14.7 % (19-41); Mean Corpuscular Hgb 32.1 pg (27.0-32.0); Mean Corpuscular Volume 97.2 fL (81-99); Mean Platelet Vol. 10.5 fl (6.2-12.0); Monocyte# 0.72 X10^3/uL; Monocyte% 10.4 % (0-10); NRBC Flagged by Analyzer 0 % (0-5); Neutrophil # 4.76 X10^3/uL (2.7-7.7); Neutrophil % 68.4 % (47-70); Platelet Count 266 K/mm3 (150-450); RBC Distribution Width CV 12.2 % (11.6-14.6); RBC Distribution Width SD 43.3 fl (35.1-43.9)
[2021-10-26 15:53] LABS: Vitamin D,25 Hydroxy 57.4 ng/mL
[2021-10-26 16:03] LABS: ALB/GLOB Ratio 1.1 RATIO (0.9-2.4); AST(SGOT) 18 U/L (15-37); Alanine Aminotransfer ALT/SGPT 26 U/L (13-56); Alkaline Phosphatase 87 U/L (45-117); Anion Gap 7 (5-15); BUN 18 mg/dL (7-18); BUN/Creat Ratio 16.8 RATIO (10-20); Calcium,Total 9.6 mg/dL (8.5-10.1); Chloride 104 mmol/L (98-107); Creatinine, Serum 1.07 mg/dL (0.55-1.02); EST Glomerular Filtration Rate 52 mL/min (>60); Est Glom Filt Rate - Afr Amer 63 mL/min (>60); Globulin 3.6 g/dL (2.2-4.2); Glucose 114 mg/dL (74-106); Potassium 3.9 mmol/L (3.5-5.1); Protein, Total 7.6 g/dL (6.4-8.2); Sodium Level 138 mmol/L (136-145); Thyroid Stim Hormone (TSH) 1.99 uIU/mL (0.358-3.74)
[2021-10-26 16:06] LABS: Microalbumin:Creatinine Ratio 75.1 mg/g CRE (<30 mg/g CRE)
[2021-10-27 08:46] LABS: PTHIN 78.4 pg/mL (18.4-80.1)
== END 2021-10-26 23:59 | disposition short-term general hospital (02) ==
LOC: MFPLAB 11:28
PROVIDERS: PCP Family Medicine; Visit Provider Family Medicine
DX: M81.0 Age-related osteoporosis without current pathological fracture (principal); I10 Essential (primary) hypertension; E03.9 Hypothyroidism, unspecified
CPT/HCPCS: 36415; 80053; 82043; 82306; 82570; 83970; 84443; 85025

== ENCOUNTER → 2022-09-15 | Outpatient (CLI) | payer MEDICARE, BC, SELFPAY ==
--- NOTE | 2022-09-15 16:10 | RAD_ITS ---
STUDY: X-RAY - LUMBAR SPINE REASON FOR EXAM: Female, 86 years old. BACK PAIN TECHNIQUE: 2 view(s) of the lumbar spine were obtained. COMPARISON: None FINDINGS: There is an exaggerated lumbar lordosis. There is a dextroscoliosis of the lumbar spine. There is a normal alignment of the vertebrae in the lateral view. There is diffuse demineralization with multi-level endplate spondylosis. There is multi-level degenerative disc disease with multi-level disc space narrowing. There is no demonstrated acute fracture. Chronic compression fracture affecting the superior endplate of L1, a T12 compression fracture has been stabilized with vertebroplasty There is atherosclerotic calcification of the abdominal aorta without a demonstrated aneurysm. RAD/Lumbar Spine 2 or 3 Views IMPRESSION: Degenerative changes of the spine, as detailed above. Electronically Signed: Han Jung MD at 9:17 EST ,
== END | disposition home or self-care (01) ==
LOC: RAD 16:07
PROVIDERS: PCP Family Medicine; Referring Provider Anesthesiology Pain Medicine; Visit Provider Anesthesiology Pain Medicine
DX: M51.36 Other intervertebral disc degeneration, lumbar region (principal); I70.0 Atherosclerosis of aorta; M47.816 Spondylosis without myelopathy or radiculopathy, lumbar region
CPT/HCPCS: 72100

== ENCOUNTER → 2022-11-08 | Outpatient (CLI) | payer MEDICARE, BC, SELFPAY ==
[2022-11-08 17:42] LABS: Absolute Lymphocyte Count 0.84 X10^3/uL (0.83-4.51); Absolute Neutrophil Count 3.6 X10^3/uL (2.0-7.7); Basophil# 0.05 X10^3/uL; Basophil% 0.9 % (0-1); Eosinophil# 0.28 X10^3/uL; Eosinophils% 5.2 % (0-5); Hematocrit 39.9 % (37-47); Lymphocyte # 0.84 X10^3/ul (0.83-4.51); Lymphocyte % 15.6 % (19-41); Mean Corp Hgb Conc 32.6 g/dL (32-36); Mean Corpuscular Hgb 31.2 pg (27.0-32.0); Mean Corpuscular Volume 95.7 fL (81-99); Mean Platelet Vol. 10.1 fl (6.2-12.0); Monocyte# 0.56 X10^3/uL; Monocyte% 10.4 % (0-10); NRBC Flagged by Analyzer 0 % (0-5); Neutrophil # 3.63 X10^3/uL (2.7-7.7); Neutrophil % 67.7 % (47-70); Platelet Count 246 K/mm3 (150-450); RBC Distribution Width CV 12.6 % (11.6-14.6); RBC Distribution Width SD 44.4 fl (35.1-43.9); Red Blood Count 4.17 M/mm3 (4.2-5.4); White Blood Count 5.4 K/mm3 (4.4-11.0)
[2022-11-08 18:08] LABS: Microalbumin,Random Urine 22.2 mg/L (NO RANGE EST.); Microalbumin:Creatinine Ratio 30.8 mg/g CRE (<30 mg/g CRE)
[2022-11-08 18:29] LABS: ALB/GLOB Ratio 1.1 RATIO (0.9-2.4); AST(SGOT) 13 U/L (15-37); Alanine Aminotransfer ALT/SGPT 20 U/L (13-56); Albumin, Serum 3.7 g/dL (3.2-5.0); Alkaline Phosphatase 77 U/L (45-117); Anion Gap 7 (5-15); BUN 25 mg/dL (7-18); BUN/Creat Ratio 25.4 RATIO (10-20); Calcium,Total 9.9 mg/dL (8.5-10.1); Chloride 103 mmol/L (98-107); Creatinine, Serum 0.98 mg/dL (0.55-1.02); EST Glomerular Filtration Rate 57 mL/min (>60); Est Glom Filt Rate - Afr Amer 69 mL/min (>60); Globulin 3.4 g/dL (2.2-4.2); Glucose 86 mg/dL (74-106); Potassium 3.9 mmol/L (3.5-5.1); Protein, Total 7.1 g/dL (6.4-8.2); Sodium Level 137 mmol/L (136-145); Thyroid Stim Hormone (TSH) 1.37 uIU/mL (0.358-3.74)
== END | disposition home or self-care (01) ==
LOC: MFPLAB 14:53
PROVIDERS: PCP Family Medicine; Visit Provider Family Medicine
DX: I10 Essential (primary) hypertension (principal); J45.909 Unspecified asthma, uncomplicated; E03.9 Hypothyroidism, unspecified
CPT/HCPCS: 36415; 80053; 82043; 82570; 84443; 85025

== ENCOUNTER → 2023-02-10 | Outpatient (CLI) | payer MEDICARE, BC, SELFPAY ==
[2023-02-10 12:03] LABS: Color, Urine Yellow (Yellow); Glucose, Dipstick Normal (Normal); Ketone-Dipstick Negative (Negative); Leukocyte Esterase-Dipstick 500 /ul (Negative); Nitrite-Dipstick Negative (Negative); Occult Blood-Urine 10 /ul (Negative); Protein-Dipstick Negative (Negative); Urine Bilirubin Dipstick Negative (Negative); Urine Clarity Sl. Cloudy (Clear); Urine Urobilinogen Normal (Normal)
[2023-02-10 12:19] LABS: Bacteria 4+ /hpf (None Seen); Mucous, Urine RARE /hpf (<or=2+); Red Blood Cells-Urine 0-5 SEEN /hpf (0-5); Squamous Epithelial Cells - UA 0-5 SEEN /hpf (5-10); White Blood Cells 10-25 SEEN /hpf (0-5)
[2023-02-10 12:26] LABS: Vitamin B12 257 pg/mL (211-911); Vitamin D,25 Hydroxy 49.1 ng/mL
[2023-02-10 12:28] LABS: Erythrocyte Sedimentation Rate 4 mm/hr (0-30)
[2023-02-10 12:30] LABS: Absolute Lymphocyte Count 0.97 X10^3/uL (0.83-4.51); Absolute Neutrophil Count 3.7 X10^3/uL (2.0-7.7); Basophil# 0.06 X10^3/uL; Eosinophil# 0.46 X10^3/uL; Hemoglobin 13.2 g/dL (12.0-15.0); Lymphocyte # 0.97 X10^3/ul (0.83-4.51); Lymphocyte % 16.8 % (19-41); Mean Corp Hgb Conc 32.2 g/dL (32-36); Mean Corpuscular Hgb 31.7 pg (27.0-32.0); Mean Corpuscular Volume 98.6 fL (81-99); Mean Platelet Vol. 10.2 fl (6.2-12.0); Monocyte# 0.58 X10^3/uL; Monocyte% 10.1 % (0-10); NRBC Flagged by Analyzer 0 % (0-5); Neutrophil # 3.67 X10^3/uL (2.7-7.7); Neutrophil % 63.8 % (47-70); Platelet Count 227 K/mm3 (150-450); RBC Distribution Width CV 12.1 % (11.6-14.6); RBC Distribution Width SD 43.9 fl (35.1-43.9); RET-HE 34.5 pg (30-35); Red Blood Count 4.16 M/mm3 (4.2-5.4); White Blood Count 5.8 K/mm3 (4.4-11.0)
[2023-02-10 12:45] LABS: ALB/GLOB Ratio 1.2 RATIO (0.9-2.4); AST(SGOT) 16 U/L (15-37); Alanine Aminotransfer ALT/SGPT 28 U/L (13-56); Albumin, Serum 3.8 g/dL (3.2-5.0); Alkaline Phosphatase 72 U/L (45-117); Anion Gap 1 (5-15); BUN 21 mg/dL (7-18); BUN/Creat Ratio 18.1 RATIO (10-20); CRP < 2.90 mg/L (0.0-3.0); Calcium,Total 9.6 mg/dL (8.5-10.1); Chloride 107 mmol/L (98-107); Creatinine, Serum 1.16 mg/dL (0.55-1.02); EST Glomerular Filtration Rate 47 mL/min (>60); Est Glom Filt Rate - Afr Amer 57 mL/min (>60); Ferritin 23 ng/mL (8-252); Globulin 3.2 g/dL (2.2-4.2); Glucose 92 mg/dL (74-106); Magnesium 2.5 mg/dL (1.6-2.6); Potassium 4.6 mmol/L (3.5-5.1); Sodium Level 139 mmol/L (136-145); Thyroid Stim Hormone (TSH) 1.35 uIU/mL (0.358-3.74)
[2023-02-13 15:07] LABS: PROEL- A/G Ratio 1.5 (0.7-1.7); PROEL- Albumin 4.1 g/dL (2.9-4.4); PROEL- Alpha-1 Globulin 0.2 g/dL (0.0-0.4); PROEL- Alpha-2 Globulin 0.6 g/dL (0.4-1.0); PROEL- Beta Globulin 1.1 g/dL (0.7-1.3); PROEL- Gamma Globulin 0.7 g/dL (0.4-1.8); PROEL- Globulin, Total 2.7 g/dL (2.2-3.9); PROEL- TOTAL PROTEIN 6.8 g/dL (6.0-8.5); Zinc, Plasma or Serum 73 ug/dL (44-115)
== END | disposition home or self-care (01) ==
LOC: MFPLAB 10:23
PROVIDERS: PCP Family Medicine; Visit Provider Family Medicine
DX: R53.83 Other fatigue (principal); Z79.899 Other long term (current) drug therapy; E03.9 Hypothyroidism, unspecified; M81.0 Age-related osteoporosis without current pathological fracture
CPT/HCPCS: 36415; 80053; 81001; 82306; 82607; 82728; 82746; 83735; 84165; 84443; 84630; 85025; 85045; 85652; 86140

== ENCOUNTER 2023-02-18 07:23 | Emergency (ER) | payer MEDICARE, BC, SELFPAY ==
[2023-02-18 07:24] VITALS: BP 157/90; PULSE 92; RESP 14; TEMP 36.6; O2SAT 96; BMI 21.4
--- NOTE | 2023-02-18 07:56 | CT_ITS ---
STUDY: CT ABDOMEN AND PELVIS WITH CONTRAST REASON FOR EXAM: Female, 87 years old. Abdominal pain. Rectal bleeding. RADIATION DOSAGE (If Supplied By Facility): CTDIvol = ( 8.96 ) mGy, DLP = ( 364.30 ) mGycm TECHNIQUE: Transaxial images were obtained from the dome of the diaphragm to the symphysis pubis without oral contrast. IV 75mL Isovue-300 was administered. Sagittal and coronal images were reconstructed. Individualized dose optimization techniques were used for this CT. COMPARISON: Comparison is made with prior study dated March 01, 2019. FINDINGS: Stable mild increased markings at the lung bases suggestive of basilar scarring. Coronary artery calcification. Mild pericardial thickening. There is decreased attenuation of the liver consistent with steatosis. Normal gallbladder and extrahepatic biliary system. Normal spleen. Normal pancreas. Normal bilateral adrenal glands. Normal right kidney. Normal left kidney. There is a large hiatal hernia composed mostly of the fundus of the stomach. Normal small intestine. There is circumferential wall thickening of the descending colon as well as the rectosigmoid colon in keeping with colitis. Sigmoid diverticula are seen in the distal sigmoid colon. There is non-visualization of the appendix. There is diffuse atherosclerotic calcification of the abdominal aorta, without a demonstrated aneurysm. Normal inferior vena cava. Normal retroperitoneum. Normal urinary bladder. The patient is status post hysterectomy. Normal abdominal wall. There are mild degenerative changes of the visualized lumbar spine. Loss of height and prior vertebroplasty of the T12 vertebrae. Dextroscoliosis. CT/Abdomen/Pelvis W IV Cont ONLY IMPRESSION: Findings are in keeping with colitis of the left hemicolon with evidence of sigmoid diverticulosis. Findings infiltration of the liver. Electronically Signed: Mitch Chaudhry MD at 9:37 EDT ,
--- NOTE | 2023-02-18 07:57 | ED.VIS.GI ---
HPI HPI - GI History of Present Illness Chief Complaint: GI Bleed Narrative Narrative: 87-year-old female, presents with her neighbor because of rectal bleeding that began at midnight, almost 8 hours ago. She relates history that she went out to dinner with her neighbor at around 6:30 PM yesterday evening. She states in the past she has over eaten and has had abdominal discomfort, but it usually goes away. She felt ill yesterday, and vomited once a small amount without any blood in her emesis. She noted that when she went to the bathroom at around midnight, she may have passed clots but noticed rectal bleeding in the toilet. She denies any chest pain or shortness of breath, no lightheadedness or dizziness. She did state that in the past she felt weak, but was started on vitamin B. She has lower abdominal discomfort and soreness. No previous abdominal surgeries. She states she does not take blood thinners. She presents because of the rectal bleeding and abdominal pain. [facility] Medical History (Updated 02/18/23 @ 10:27 by Colin Weiner MD) Hiatal hernia HTN (hypertension) Hypothyroid Home Medications Omeprazole [Prilosec] 20 mg PO DAILY 12/06/13 [History Last Taken 03/23/19] fluticasone 250 mcg-salmeterol 50 mcg/dose blistr powdr for inhalation (Advair Diskus) 1 puff inhalation BID 12/06/13 [History Last Taken Unknown] levothyroxine 25 mcg tablet 50 mcg PO DAILY 12/06/13 [History Last Taken 03/23/19] docusate sodium 100 mg capsule 100 mg PO DAILY 03/20/19 [History Last Taken Unknown] lisinopril 20 mg tablet 20 mg PO DAILY 03/20/19 [History Last Taken Unknown] tramadol 50 mg tablet 50 mg PO Q6H PRN PRN Pain 03/20/19 [History Last Taken Unknown] ciprofloxacin HCl 500 mg tablet (Cipro) 500 mg PO BID #20 tabs 02/18/23 [Rx Last Taken Unknown] metronidazole 500 mg tablet 500 mg PO TID #30 tabs 02/18/23 [Rx Last Taken Unknown] Allergy/AdvReac Type Severity Reaction Status Date / Time Sulfa (Sulfonamide Allergy Unknown Verified 02/18/23 07:26 Antibiotics) Social History Smoking Status: Never smoker ROS ROS ED ROS Narrative Constitutional: No fever, no chills. HEENT: No sore throat. No neck pain. No loss of vision. No rhinorrhea. Cardiovascular: No chest pain. No palpitations. No pedal edema. Respiratory: No cough, no shortness of breath. Abdominal: Lower abdominal pain. Nausea and vomiting x1 yesterday-resolved. Positive rectal bleeding. Genitourinary: No dysuria. No hematuria. Musculoskeletal: No myalgias. No arthralgias. Neurologic: No headaches. No dizziness. No lightheadedness. Skin: No rash. No change in color. Psychiatric: No depression. No anxiety. EXAM Physical Exam Narrative Exam Narrative: Afebrile. Vital signs noted. HEENT: Normocephalic. Atraumatic. PERRL, EOMI. Neck soft and supple. No point tenderness or step off. Cardiovascular: Regular rate and rhythm. No tachycardia. No murmurs, rubs, or gallops appreciated. Respiratory: No tachypnea. Lungs clear to auscultation bilaterally. Gastrointestinal: Abdomen soft, mild tenderness bilateral lower quadrants to suprapubic. Positive, normoactive bowel sounds. No rebound or guarding. Neurological: Awake. Alert. Nonfocal, nonlateralizing. Skin: No rash. Normal color. No pallor. Musculoskeletal: No pedal edema. Full range of motion extremities. Noted kyphosis. Const Vital Signs: 02/18/23 07:24 02/18/23 08:09 Temperature 97.9 F Temperature Source Temporal Pulse Rate 92 74 Respiratory Rate 14 16 Blood Pressure 157/90 H 135/78 H Blood Pressure Mean 112 97 Pulse Ox 96 94 Oxygen Delivery Method Room Air Room Air MDM MDM MDM Narrative Medical decision making narrative: Concern is for diverticular bleed versus AV malformation versus hemorrhoidal bleed. Given her abdominal pain, diverticulitis is higher on my differential. Comprehensive work-up was pursued. I will obtain basic laboratory work to check for anemia, and see if there is an increase in her BUN or creatinine looking for a GI bleed. Additionally, I do feel CT imaging is indicated. She will be bolused normal saline 1 L intravenously. I reviewed her laboratory work, she has normal white count of 7.6, hemoglobin normal at 12.3, hematocrit 38.6, with normal platelet count of 207. In review of her CMP, BUN slightly elevated at 24 with a creatinine of 1.04, glucose appropriately elevated at 102 with a normal anion gap of 5. I reviewed the CT imaging, and then reviewed the CT report of the abdomen pelvis which shows left hemicolon colitis with diverticulosis. She was given her first doses of Flagyl and Cipro here and prescriptions written to take as an outpatient. Through shared decision-making, patient feels well and would like to be discharged with outpatient follow-up. I did discuss the patient with the nurse practitioner for Dr. Kurtz who is aware the patient and will arrange for close outpatient follow-up. Strict return instructions were reviewed. She will take [id number] medications, and as she has a normal hemoglobin, and I checked a rectal examination which did not show any elsi hemorrhage only a scant amount of dried blood, I feel she can be discharged safely home to follow-up with gastroenterology. I also discussed the patient with her daughter over the telephone regarding the plan to put her on antibiotics, and the patient's preference to be treated as an outpatient. Disposition is discharged home in stable condition. History & Record Review Discussion w/independent historian: Patient and Friend Additional record(s) reviewed:: Prior ED visit and Prior labs Lab Data Attestation: I reviewed the patient's lab results. Labs: Laboratory Results - last 24 hr 02/18/23 02/18/23 08:15 08:15 WBC 7.6 RBC 3.95 L Hgb 12.3 Hct 38.6 MCV 97.7 MCH 31.1 MCHC 31.9 L RDW Std Deviation 42.8 RDW Coeff of Helen 11.9 Plt Count 207 MPV 9.4 Immature Gran % (Auto) 0.400 Neut % (Auto) 75.2 H Lymph % (Auto) 9.0 L [place] % (Auto) 10.4 H Eos % (Auto) 4.3 Baso % (Auto) 0.7 Absolute Neuts (auto) 5.7 Absolute Lymphs (auto) 0.68 L Nucleated RBC % 0 Sodium 144 Potassium 3.7 Chloride 112 H Carbon Dioxide 27.0 Anion Gap 5 BUN 24 H Creatinine 1.04 H Estim Creat Clear Calc 28.93 Est GFR (MDRD) Af Amer 64 Est GFR (MDRD) Non-Af 53 L BUN/Creatinine Ratio 23.1 H Glucose 102 Calcium 9.5 Total Bilirubin 0.40 AST 13 L ALT 19 Alkaline Phosphatase 71 Total Protein 6.7 Albumin 3.5 Globulin 3.2 Albumin/Globulin Ratio 1.1 Radiography Diagnostic Testing: Clinical Impression(s) from Imaging Studies Abdomen/Pelvis CT 02/18/23 07:56 IMPRESSION: Findings are in keeping with colitis of the left hemicolon with evidence of sigmoid diverticulosis. Findings infiltration of the liver. Electronically Signed: Mitch Chaudhry MD at 9:37 EDT , Discharge Plan Triage Chief Complaint: GI Bleed ED Provider: Colin Weiner Dx/Rx/DC Orders Clinical Impression: Colitis, GI bleeding Instructions: ED Understanding Colitis, ED Lower GI Bleeding (Stable) Prescriptions: New metronidazole 500 mg tablet 500 mg PO TID Qty: 30 0RF ciprofloxacin HCl [Cipro] 500 mg tablet 500 mg PO BID Qty: 20 0RF No Action fluticasone propion-salmeterol [Advair Diskus] 1 PUFF inhaler 1 puff inhalation BID levothyroxine 25 MCG tablet 50 mcg PO DAILY Omeprazole [Prilosec] 40 MG capsule 20 mg PO DAILY lisinopril 20 MG tablet 20 mg PO DAILY tramadol 50 MG tablet 50 mg PO Q6H PRN PRN (Reason: Pain) docusate sodium 100 MG capsule 100 mg PO DAILY Primary Care Provider: Tawanda Muñiz Referrals: Tawanda Muñiz MD [Primary Care Provider] - As soon as possible FriendElliott DO [Med Staff - Active Staff] - 3-5 Days Activity Restrictions/Additional Instructions: Take your antibiotics as directed. Return with increased bleeding, pain, fever, new or worsening symptoms. Disposition Disposition: Home, Self Care
[2023-02-18 08:09] VITALS: BP 135/78; PULSE 74; RESP 16; O2SAT 94
[2023-02-18] MEDS: 0.9% Normal Saline 1,000 ML 1000 ML IV (08:15)
[2023-02-18 08:28] LABS: Absolute Lymphocyte Count 0.68 X10^3/uL (0.83-4.51); Absolute Neutrophil Count 5.7 X10^3/uL (2.0-7.7); Basophil# 0.05 X10^3/uL; Basophil% 0.7 % (0-1); Eosinophil# 0.33 X10^3/uL; Eosinophils% 4.3 % (0-5); Hematocrit 38.6 % (37-47); Hemoglobin 12.3 g/dL (12.0-15.0); Lymphocyte # 0.68 X10^3/ul (0.83-4.51); Mean Corp Hgb Conc 31.9 g/dL (32-36); Mean Corpuscular Hgb 31.1 pg (27.0-32.0); Mean Corpuscular Volume 97.7 fL (81-99); Mean Platelet Vol. 9.4 fl (6.2-12.0); Monocyte# 0.79 X10^3/uL; Monocyte% 10.4 % (0-10); NRBC Flagged by Analyzer 0 % (0-5); Neutrophil # 5.71 X10^3/uL (2.7-7.7); Neutrophil % 75.2 % (47-70); Platelet Count 207 K/mm3 (150-450); RBC Distribution Width CV 11.9 % (11.6-14.6); RBC Distribution Width SD 42.8 fl (35.1-43.9); Red Blood Count 3.95 M/mm3 (4.2-5.4); White Blood Count 7.6 K/mm3 (4.4-11.0)
[2023-02-18 08:46] LABS: ALB/GLOB Ratio 1.1 RATIO (0.9-2.4); AST(SGOT) 13 U/L (15-37); Alanine Aminotransfer ALT/SGPT 19 U/L (13-56); Albumin, Serum 3.5 g/dL (3.2-5.0); Alkaline Phosphatase 71 U/L (45-117); Anion Gap 5 (5-15); BUN 24 mg/dL (7-18); BUN/Creat Ratio 23.1 RATIO (10-20); Calcium,Total 9.5 mg/dL (8.5-10.1); Chloride 112 mmol/L (98-107); Creatinine, Serum 1.04 mg/dL (0.55-1.02); EST Glomerular Filtration Rate 53 mL/min (>60); Est Glom Filt Rate - Afr Amer 64 mL/min (>60); Estimated Creatinine Clearance 28.93 ml/min; Globulin 3.2 g/dL (2.2-4.2); Glucose 102 mg/dL (74-106); Potassium 3.7 mmol/L (3.5-5.1); Protein, Total 6.7 g/dL (6.4-8.2); Sodium Level 144 mmol/L (136-145)
[2023-02-18] MEDS: metroNIDAZOLE 500 MG Tablet PO (10:26)
[2023-02-18] MEDS: Ciprofloxacin 500 MG Tablet PO (10:26)
[2023-02-18 11:13] VITALS: BP 125/90; PULSE 74; RESP 16; O2SAT 99
== END 2023-02-18 11:15 | disposition home or self-care (01) ==
PROVIDERS: Emergency Provider Emergency Medicine; PCP Family Medicine; Visit Provider Emergency Medicine
DX: K92.2 Gastrointestinal hemorrhage, unspecified (principal); I10 Essential (primary) hypertension; E03.9 Hypothyroidism, unspecified; Z79.899 Other long term (current) drug therapy
CPT/HCPCS: 74177; 80053; 85025; 96360; 96361; 99284; J7030; Q9967; A4216

== ENCOUNTER → 2023-11-22 | Outpatient (CLI) | payer MEDICARE, BC, SELFPAY ==
--- OUTSIDE RECORDS SUMMARY | 2023-11-22 12:17 | XMS RPT_ITS | CCD ---
Author Name Unknown Address [address] [place] [address] Organization [facility] Care Team Providers Care Training Consultant Name Role Phone GREG, EMERALD E Unavailable Unavailable GREG, EMERALD E Unavailable Unavailable GREG, EMERALD Unavailable Unavailable GREG, EMERALD Unavailable Unavailable GREG, EMERALD Unavailable Unavailable GREG, EMERALD Unavailable Unavailable DAVE WINSLOW (DONATIONS ATTENDANT) Unavailable Unavailable HILTON CISSE Unavailable Unavailable YAMILET MARTELL () Unavailable Unav ailable YAMILET MARTELL) Unavailable Unav ailable GREG, EMERALD E Unavailable Unavailable GREG, EMERALD E Unavailable Unavailable Allergies Allergy Classification Reported Allergen(s) Allergy Type Date of Onset Reaction(s) Facility (3 sources) alendronate; Translations: [ALENDRONATE SODIUM] Drug Allergy 8 [facility] Repository (3 sources) Sulfonamides (Antibiotic); Translations: [SULFA (SULFONAMIDE ANTIBIOTICS)] Propensity to adverse reactions to drug (disorder) 5 [facility] Repository (3 sources) HOMEOPATHIC PRODUCTS; Translations: [HOMEOPATHIC PRODUCTS] Propensity to adverse reactions to drug (disorder) 7 [facility] Repository (3 sources) AMOXICILLIN-POT CLAVULANATE; Translations: [AMOXICILLIN-POT CLAVULANATE] Propensity to adverse reactions to drug (disorder) 8 [facility] Repository Problems Active Problems Problem Classification Problem Date Documented Da te Episodic/Chronic Unclassified (2 sources) Unknown / UNK(Unknown) Onset: 09-01-2017 Past or Other Problems Problem Classification Problem Date Documented Da te Episodic/Chronic Residual codes; unclassified (1 source) Localized edema; Translations: [Localized edema] Onset: 12-05-2017 Episodic Unclassified (1 source) Recheck Onset: 09-01-2017 Varicose veins of lower extremity (1 source) Asymptomatic varicose veins of bilateral lower extremities; Translations: [Asymptomatic varicose veins of bilateral lower extremities] Onset: 12-05-2017 Episodic Results Test Name Value Interpretation Reference Range Facil ity Encounters Encounter Date Encounter Type Care Provider Facility Start: 09-01-2018 End: 09-04-2018 Ambulatory EMERALD GARZA Facility:[facility] Start: 12-05-2017 End: 12-05-2017 Patient encounter procedure YAMILET MEZA) [facility] Start: 12-01-2017 End: 12-02-2017 Patient encounter procedure YAMILET MEZA) [facility] Start: 11-16-2017 End: 11-18-2017 Patient encounter procedure DAVE EDDYHARISH [facility] Start: 11-03-2017 End: 11-03-2017 Patient encounter procedure DAVE (DONATIONS ATTENDANT) [facility] Start: 09-01-2017 Ambulatory EMERALD [facility] Payers Date Payer Category Payer Policy ID Medicare [id number] Summary Purpose Family History No Family History Records FoundNo Family History Records FoundNo Family History Records Found Advance Directives No Advanced Directives Records FoundNo Advanced Directives Records FoundNo Advanced Directives Records Found Additional Source Comments INFORMATION SOURCE (unrecogn ized section and content) DATE CREATED AUTHOR AUTHOR'S ORGANIZ ATION 03/28/2018 [facility] DATE CREATED AUTHOR AUTHOR'S ORGANIZ ATION 09/11/2018 [facility] FOR RECORDS PERTAINING TO PATIENTS WHO ARE OR HAVE BEEN ENROLLED IN A CHEMICAL DEPENDENCY/SUBSTANCEABUSE PROGRAM, SOME INFORMATION MAY BE OMITTED. This clinical summary was aggregated from multiple sources. Caution should be exercised in using it in the provision of clinical care. This summary normalizes information from multiple sources, and as a consequence, information in this document may materially change the coding, format and clinical context of patient data. In addition, data may be omitted in some cases. CLINICAL DECISIONS SHOULD BE BASED ON THE PRIMARY CLINICAL RECORDS. [employer] provides no warranty or guarantee of the accuracy or completeness of information in this document.
[2023-11-22 15:28] LABS: Absolute Lymphocyte Count 1.05 X10^3/uL (0.83-4.51); Absolute Neutrophil Count 4.7 X10^3/uL (2.0-7.7); Basophil# 0.05 X10^3/uL; Basophil% 0.7 % (0-1); Eosinophil# 0.53 X10^3/uL; Eosinophils% 7.5 % (0-5); Hematocrit 40.6 % (37-47); Lymphocyte # 1.05 X10^3/ul (0.83-4.51); Lymphocyte % 14.9 % (19-41); Mean Corpuscular Volume 96.7 fL (81-99); Monocyte% 9.9 % (0-10); NRBC Flagged by Analyzer 0 % (0-5); Neutrophil # 4.72 X10^3/uL (2.7-7.7); Neutrophil % 66.7 % (47-70); Platelet Count 235 K/mm3 (150-450); RBC Distribution Width CV 12.2 % (11.6-14.6); RBC Distribution Width SD 43.7 fl (35.1-43.9); White Blood Count 7.1 K/mm3 (4.4-11.0)
[2023-11-22 15:52] LABS: Vitamin B12 387 pg/mL (211-911); Vitamin D,25 Hydroxy 36.7 ng/mL
[2023-11-22 16:03] LABS: ALB/GLOB Ratio 1.1 RATIO (0.9-2.4); AST(SGOT) 15 U/L (15-37); Alanine Aminotransfer ALT/SGPT 21 U/L (13-56); Albumin, Serum 3.7 g/dL (3.2-5.0); Alkaline Phosphatase 82 U/L (45-117); Anion Gap 3 (5-15); BUN 15 mg/dL (7-18); BUN/Creat Ratio 12.5 RATIO (10-20); Calcium,Total 9.4 mg/dL (8.5-10.1); Chloride 106 mmol/L (98-107); Cholesterol 203 mg/dL (200); EST Glomerular Filtration Rate 45 mL/min (>60); Est Glom Filt Rate - Afr Amer 55 mL/min (>60); Globulin 3.3 g/dL (2.2-4.2); Glucose 77 mg/dL (74-106); High Density Lipoprotein 81 mg/dL; Sodium Level 140 mmol/L (136-145)
== END | disposition home or self-care (01) ==
LOC: MFPLAB 11:34
PROVIDERS: PCP Family Medicine; Visit Provider Family Medicine
DX: R79.89 Other specified abnormal findings of blood chemistry (principal); I10 Essential (primary) hypertension; M81.0 Age-related osteoporosis without current pathological fracture; E03.9 Hypothyroidism, unspecified; I70.91 Generalized atherosclerosis
CPT/HCPCS: 36415; 80053; 82306; 82465; 82607; 82746; 83718; 84443; 85025

== ENCOUNTER → 2024-01-13 | Outpatient (CLI) | payer MEDICARE, BC, SELFPAY ==
--- NOTE | 2024-01-13 14:30 | RAD_ITS ---
EXAM: XR CHEST, 2 VIEWS CLINICAL INDICATION: Shortness of breath TECHNIQUE: Frontal and lateral views of the chest. COMPARISON: No relevant prior studies available. FINDINGS: LUNGS AND PLEURAL SPACES: There is retrocardiac opacity with an air-fluid level compatible with a hiatal hernia. No pneumothorax. HEART: Unremarkable. Cardiac silhouette not enlarged. MEDIASTINUM: See above. BONES/JOINTS: There is marked kyphosis of the thoracic spine. There is orthopedic cement in thoracic vertebral bodies. No acute fracture. SOFT TISSUES: Unremarkable. RAD/Chest PA and Lateral IMPRESSION: No acute pulmonary abnormality. There is a hiatal hernia present. Electronically Signed: Kashif Reich MD at 20:09 EDT ,
[2024-01-13 17:51] LABS: Absolute Lymphocyte Count 1.14 X10^3/uL (0.83-4.51); Absolute Neutrophil Count 4.5 X10^3/uL (2.0-7.7); Basophil# 0.06 X10^3/uL; Basophil% 0.8 % (0-1); Eosinophil# 0.55 X10^3/uL; Eosinophils% 7.7 % (0-5); Hematocrit 40.8 % (37-47); Hemoglobin 13.2 g/dL (12.0-15.0); Lymphocyte # 1.14 X10^3/ul (0.83-4.51); Mean Corp Hgb Conc 32.4 g/dL (32-36); Mean Corpuscular Hgb 31.2 pg (27.0-32.0); Mean Corpuscular Volume 96.5 fL (81-99); Mean Platelet Vol. 9.8 fl (6.2-12.0); Monocyte# 0.83 X10^3/uL; Monocyte% 11.7 % (0-10); NRBC Flagged by Analyzer 0 % (0-5); Neutrophil # 4.51 X10^3/uL (2.7-7.7); Neutrophil % 63.5 % (47-70); Platelet Count 264 K/mm3 (150-450); RBC Distribution Width CV 12.9 % (11.6-14.6); RBC Distribution Width SD 45.5 fl (35.1-43.9); Red Blood Count 4.23 M/mm3 (4.2-5.4); White Blood Count 7.1 K/mm3 (4.4-11.0)
[2024-01-13 18:38] LABS: BNP,B-Type NATRIURETIC PEPTIDE 56.4 pg/mL (0-100)
== END | disposition home or self-care (01) ==
LOC: MTLAB 14:23
PROVIDERS: PCP Family Medicine; Referring Provider Family Medicine; Visit Provider Family Medicine
DX: R06.02 Shortness of breath (principal)
CPT/HCPCS: 36415; 71046; 83880; 85025

== ENCOUNTER → 2024-02-24 | Outpatient (CLI) | payer MEDICARE, BC, SELFPAY ==
--- NOTE | 2024-02-24 14:22 | CT_ITS ---
EXAM: CT CHEST AND ABDOMEN WITH INTRAVENOUS CONTRAST CLINICAL INDICATION: Hiatal hernia TECHNIQUE: Helically acquired images were obtained of the chest and abdomen with intravenous contrast. This CT exam was performed using one or more of the following dose reduction techniques: automated exposure control, adjustment of the mA and/or kV according to patient size, and/or use of iterative reconstruction technique. RADIATION DOSE: CTDIvol = 7.76 mGy, DLP = 315.92 mGy-cmContrast: IV 100mL Isovue-300 COMPARISON: Abdomen and pelvis CT February 18, 2023 mentioned large hiatal hernia and colitis involving descending and sigmoid colon, T12 vertebroplasty, fatty liver. FINDINGS: CHEST: LUNGS AND PLEURAL SPACES: Mildly thick band of opacity left upper lobe abutting the fissure extending into the lingula may be thick discoid atelectasis or infiltrate. Slight irregular groundglass opacities in the right upper lobe. No mass. No pleural effusion or thickening. No central airway obstruction. Moderately dense breast parenchyma appears fairly symmetric. HEART: Mild pericardial effusion anterior-inferior to the heart, roughly 1.1 cm thickness MEDIASTINUM: Multiple punctate calcifications in the subcarinal region and left infrahilar region, presumed old granulomatous disease. Small calcified granuloma in the left lung base. Again noted is similar appearance of large hiatal hernia, with mid to distal stomach body entering the abdomen. The hiatal hernia is not significantly distended to suggest obvious gastric obstruction, and there is mild fluid, gas in the hernia and mild fluid and gas in the distal intra-abdominal stomach. The proximal small bowel loops are relatively collapsed. The herniated stomach estimated to be 6.3 cm x 7.6 cm. Only mild gas in the proximal esophagus, it is not significantly distended. No mediastinal or hilar adenopathy. THYROID: Unremarkable. No thyroid lesions. ABDOMEN: LIVER: Unremarkable. Homogeneous. No focal mass. GALLBLADDER AND BILE DUCTS: Unremarkable. No calcified gallstones. No gallbladder distention or wall edema. No intra- or extrahepatic biliary ductal dilation. PANCREAS: Mildly coarse calcification between the proximal body of the pancreas, deep to the pylorus appears chronic. No focal cystic or solid mass. SPLEEN: Unremarkable. Normal size without focal cystic or solid mass. ADRENALS: Mild fullness of the adrenals. KIDNEYS AND URETERS: Unremarkable. Normal renal size and position. No hydronephrosis. STOMACH AND BOWEL: See above. INTRAPERITONEAL SPACE: Unremarkable. No ascites or other fluid collection. No free air. CHEST and ABDOMEN: BONES/JOINTS: Marked kyphosis of the thoracic spine with multiple compression deformities and vertebroplasty exam T9 and T12. Marked demineralization. Marked chronic-appearing compression deformities of T8 and T5. No visible acute fracture lines spinal stenosis. No suspicious lytic or blastic abnormality. SOFT TISSUES: See above. VASCULATURE: No aortic aneurysm or dissection. Mild atherosclerotic calcification of aorta and calcifications at the origins of the intra-abdominal arteries. No obvious central pulmonary embolism although this study was not performed with the pulmonary embolism protocol. LYMPH NODES: Unremarkable. No enlarged lymph nodes. CT/CT Chest AND Abd W/ Contrast IMPRESSION: 1. Large but not visibly obstructed hiatal hernia. 2. Thick band of discoid atelectasis and/or mild airspace disease in left lung extending to the lingula. Mild groundglass opacities scattered in the right upper lobe, possibly mild pneumonitis. 3. Marked spine demineralization, marked thoracic kyphosis, multiple chronic compression deformities and multiple vertebroplasties. No acute thoracic fractures are demonstrated. 4. Question of mild adrenal hyperplasia. 5. No evidence of significant PE or aortic aneurysm or dissection. The vessels are adequately opacified. 6. Old granulomatous disease. Slight pericardial effusion. Electronically Signed: Erica Nash MD at 3:34 EDT ,
== END | disposition home or self-care (01) ==
LOC: CT 14:18
PROVIDERS: PCP Family Medicine; Referring Provider Internal Medicine Gastroenterology; Visit Provider Internal Medicine Gastroenterology
DX: K44.9 Diaphragmatic hernia without obstruction or gangrene (principal)
CPT/HCPCS: 71260; 74160; Q9967

== ENCOUNTER → 2024-07-18 | Outpatient (CLI) | payer MEDICARE, BC, SELFPAY ==
--- NOTE | 2024-07-18 15:05 | RAD_ITS ---
EXAM: XR LEFT HIP WITH PELVIS WHEN PERFORMED, 2 OR 3 VIEWS CLINICAL INDICATION: Rule out bone spur TECHNIQUE: Two or three views of the left hip with pelvis when performed. COMPARISON: No relevant prior studies available. FINDINGS: BONES/JOINTS: Degenerative findings in the lumbar spine. No displaced fracture. No destructive or sclerotic lesions. Note that overlapping bowel shadows may however obscure fine detail. Sacroiliac joint is unremarkable. No widening of the pubic symphysis. SOFT TISSUES: Unremarkable. No soft tissue swelling or gas. RAD/HIP, UNI W/ Pelvis 2-3 Views IMPRESSION: Degenerative findings in the lumbar spine. Electronically Signed: Richmond Alejandra MD at 18:52 EDT Reading Location ID and State: [facility]0 / [place] , Service support ,
== END | disposition home or self-care (01) ==
LOC: RAD 14:59
PROVIDERS: PCP Family Medicine; Referring Provider Family Medicine; Visit Provider Family Medicine
DX: M25.552 Pain in left hip (principal)
CPT/HCPCS: 73502

== ENCOUNTER → 2024-11-26 | Outpatient (CLI) | payer MEDICARE, BC, SELFPAY ==
[2024-11-26 15:22] LABS: Absolute Lymphocyte Count 0.69 X10^3/uL (0.83-4.51); Absolute Neutrophil Count 4.1 X10^3/uL (2.0-7.7); Basophil# 0.06 X10^3/uL; Eosinophil# 0.45 X10^3/uL; Eosinophils% 7.5 % (0-5); Hematocrit 41.8 % (37-47); Hemoglobin 13.1 g/dL (12.0-15.0); Lymphocyte # 0.69 X10^3/ul (0.83-4.51); Lymphocyte % 11.6 % (19-41); Mean Corp Hgb Conc 31.3 g/dL (32-36); Mean Corpuscular Hgb 30.8 pg (27.0-32.0); Mean Corpuscular Volume 98.4 fL (81-99); Mean Platelet Vol. 10.1 fl (6.2-12.0); Monocyte% 11.7 % (0-10); NRBC Flagged by Analyzer 0 % (0-5); Neutrophil # 4.06 X10^3/uL (2.7-7.7); Platelet Count 244 K/mm3 (150-450); RBC Distribution Width CV 12.5 % (11.6-14.6); RBC Distribution Width SD 45.2 fl (35.1-43.9); Red Blood Count 4.25 M/mm3 (4.2-5.4)
[2024-11-26 15:54] LABS: Vitamin B12 320 pg/mL (211-911); Vitamin D,25 Hydroxy 37.8 ng/mL
[2024-11-26 17:32] LABS: Microalbumin,Random Urine 69.2 mg/L (NO RANGE EST.); Microalbumin:Creatinine Ratio 35.5 mg/g CRE (<30 mg/g CRE)
[2024-11-26 19:39] LABS: AST(SGOT) 15 U/L (15-37); Alanine Aminotransfer ALT/SGPT 19 U/L (13-56); Albumin, Serum 3.6 g/dL (3.2-5.0); Alkaline Phosphatase 92 U/L (45-117); Anion Gap 5 (5-15); BUN 16 mg/dL (7-18); BUN/Creat Ratio 14.7 RATIO (10-20); Calcium,Total 9.5 mg/dL (8.5-10.1); Chloride 107 mmol/L (98-107); Creatinine, Serum 1.09 mg/dL (0.55-1.02); EST Glomerular Filtration Rate 50 mL/min (>60); Est Glom Filt Rate - Afr Amer 61 mL/min (>60); Globulin 3.7 g/dL (2.2-4.2); Glucose 103 mg/dL (74-106); Potassium 3.9 mmol/L (3.5-5.1); Protein, Total 7.3 g/dL (6.4-8.2); Sodium Level 141 mmol/L (136-145)
== END | disposition home or self-care (01) ==
LOC: MFPLAB 11:31
PROVIDERS: PCP Family Medicine; Referring Provider Family Medicine; Visit Provider Family Medicine
DX: I10 Essential (primary) hypertension (principal); M81.0 Age-related osteoporosis without current pathological fracture; R79.89 Other specified abnormal findings of blood chemistry; E03.9 Hypothyroidism, unspecified; J45.30 Mild persistent asthma, uncomplicated
CPT/HCPCS: 36415; 80053; 82043; 82306; 82570; 82607; 82746; 84443; 85025

== ENCOUNTER 2025-03-14 17:06 | Observation (INO) | payer MEDICARE, BC, SELFPAY ==
[2025-03-14] VITALS (9 sets, daily range): BP systolic 121–158; BP diastolic 70–95; PULSE 60–88; RESP 16–27; TEMP 36.6; O2SAT 92–97; BMI 21.4
--- NOTE | 2025-03-14 17:38 | RAD_ITS ---
PROCEDURE: CHEST PA AND LATERAL 03/14/2025 REASON FOR EXAM: CHEST PAIN TECHNIQUE: Frontal and lateral views of the chest. COMPARISON: CT chest 02/25/2024. FINDINGS: Hardware: None. Heart: The heart size is normal. Retrocardiac opacity, compatible with known large hiatal hernia. Mediastinum: The mediastinal contour is stable. Lungs: Probable small left pleural effusion. Bibasilar atelectasis/scarring. No pneumothorax. Bones: Stable marked kyphosis of the thoracic spine. Prior cement augmentation of the thoracic vertebral bodies. Chronic bilateral rib fracture deformities. RAD/Chest PA and Lateral IMPRESSION: Probable small left pleural effusion. Otherwise stable chest radiograph. Reading Location: [id number]
--- NOTE | 2025-03-14 17:42 | EDS_ITS ---
HPI History of Present Illness Chief Complaint: Shortness of Breath Narrative Narrative: Chief complaint and HPI: Chest pain. 89-year-old female with past medical history of HTN, hypothyroidism, GERD with hiatal hernia, severe kyphosis, asthma presents for evaluation of chest pain. Patient states periodically for months she develops short episodes of shortness of breath and chest pain. States that usually lasts several seconds to minutes. States that she was driving in the car when she developed this episode. States that it lasted approximately 15 minutes. Symptoms consisted of shortness of breath, midsternal chest pain which she describes as pressure, GERD, nausea, and a headache. States her symptoms have since resolved acid reflux. Triage note states that the chest pain radiated to her back, she denies this to me. States that it stayed midsternum and did not radiate. She denies any fever, chills, URI symptoms, cough, abdominal pain, emesis. States for several months she has periodically becomes short of breath with exertion. Denies any bilateral lower extremity swelling or pain. No recent travel or surgery. Review of systems: See HPI Medications: As listed on the chart Allergies: As listed on the chart PFSH: Per chart Vital signs: As listed on the chart. Reviewed. Physical exam: Gen: A&O x3, NAD Head: Normocephalic, atraumatic Eyes: No sclera icterus, conjunctiva clear ENT: Moist mucous membranes Neck: Trachea midline, No JVD CV: RRR, no murmurs, no peripheral edema, chest wall nontender to palpation Resp: Lungs CTA BL, no w/r/c GI: Abd soft, non-distended, non-tender, no r/r/g Musc: Full ROM, no deformity, severe kyphosis, no midline spinal tenderness Skin: Warm, dry Neuro: Alert, oriented, grossly intact, sensation intact Psych: Cooperative, appropriate mood and affect [facility] Medical History Hiatal hernia Hypothyroid HTN (hypertension) Home Medications ?Medication ?Instructions ?Recorded ?Last Taken ?Type Omeprazole [Prilosec] 20 mg PO DAILY 12/06/13/10/21 History fluticasone 250 mcg-salmeterol 50 1 puff inhalation BI D 12/06/13 Unknown History mcg/dose blistr powdr for inhalation (Advair Diskus) levothyroxine 25 mcg tablet 50 mcg PO DAILY 12/06/13 0 03/23/19 History docusate sodium 100 mg capsule 100 mg PO DAILY 9 Unknown History lisinopril 20 mg tablet 20 mg PO DAILY 03/20/19 Unkn own History Allergy/AdvReac Type Severity Reaction Status Date / Time Sulfa (Sulfonamide Allergy Unknown Verified 03/14/25 17:08 Antibiotics) Surgical History H/O kyphoplasty H/O: hysterectomy Social History Smoking Status: Never smoker EXAM Physical Exam Const Vital Signs: 03/14/25 17:07 03/14/25 17:14 03/14/25 17:15 Temperature 97.9 F Temperature Source Oral Pulse Rate 85 Respiratory Rate 16 Respiratory Effort Normal Non-Labored Normal Non-Labored Respiratory Depth Normal Respiratory Pattern Normal Blood Pressure 158/95 H Blood Pressure Mean 116 Pulse Ox 94 Oxygen Delivery Method Room Air Room Air 03/14/25 17:57 03/14/25 19:00 03/14/25 20:16 Temperature Temperature Source Pulse Rate 75 66 70 Respiratory Rate 16 18 18 Respiratory Effort Respiratory Depth Respiratory Pattern Blood Pressure 126/78 H 136/76 H Blood Pressure Mean 94 96 Pulse Ox 97 95 95 Oxygen Delivery Method Room Air Room Air Room Air 03/14/25 21:00 03/14/25 21:05 Temperature 97.9 F Temperature Source Pulse Rate 88 75 Respiratory Rate 21 H 27 H Respiratory Effort Respiratory Depth Respiratory Pattern Blood Pressure 133/81 H 133/81 H Blood Pressure Mean 98 98 Pulse Ox 97 95 Oxygen Delivery Method Room Air MDM MDM MDM Narrative Medical decision making narrative: 89-year-old female with past medical history of HTN, hypothyroidism, GERD with hiatal hernia, severe kyphosis, asthma presents for evaluation of chest pain. Patient states periodically for months she develops short episodes of shortness of breath and chest pain. States that usually lasts several seconds to minutes. States that she was driving in the car when she developed this episode. States that it lasted approximately 15 minutes. Symptoms consisted of shortness of breath, midsternal chest pain which she describes as pressure, GERD, nausea, and a headache. Only symptom left at this time is GERD. Differential diagnosis includes but is not limited to GERD, ACS, CHF, pneumonia, PE, electrolyte abnormality. Aspirin and Pepcid ordered for symptoms. Cardiac workup ordered including abdominal labs. EKGs were personally reviewed interpreted by me, ED physician. Original EKG shows normal sinus rhythm with a heart rate of 82. Patient has ST depressions in V4, V5, and V6. This is new from previous EKG in 2019. No ST elevation. There is some artifact on the EKG. Will repeat EKG. Repeat EKG shows normal sinus rhythm with resolved ST depressions. No artifact on the EKG. Heart rate 74. Chest x-ray reviewed. CBC without leukocytosis or anemia. Platelets unremarkable. Coagulation panel unremarkable. D-dimer is 0.58. This is unremarkable per age adjustment. CMP shows renal insufficiency with a BUN of 23 and a creatinine of 1.7. On chart review patient's creatinine was 1.09 in November and her BUN was normal. She states she has been eating and drinking well however concern is for RAFI. Will obtain urine to rule out infection. No transaminitis. Lipase elevated at 330. Given patient's epigastric pain, concern is for possible pancreatitis will get CT abdomen and pelvis however given elevated creatinine we will perform this without contrast. TSH unremarkable. BNP unremarkable. Troponin 25 and 23. UA negative for UTI. CT abdomen pelvis shows no large hiatal hernia. No acute abnormality. Limited evaluation of the pancreas. On reevaluation, patient is asymptomatic. However given her resolved ST depressions and complaint, concern is for ACS. Patient also has RAFI of unclear origin. I spoke with the patient I recommend admission for further ACS workup including stress test. She confirmed understanding the plan. I spoke with cardiology, Dr. Hinojosa. He reviewed the EKGs. I agree that patient would benefit from stress test. No need for cardiac cath at this time unless patient develops chest pain with EKG changes at the same time. Patient was discussed with hospitalist service who accepted admission. Diagnostic: Interpreted by me/EM physician: Chest x-ray without pneumonia, large effusion, cardiomegaly, pneumothorax Impression: 1. Episodic episodes of shortness of breath and chest pain, concern for ACS 2. Resolved ST depressions in V4, V5, V6 concern for ACS versus artifact 3. RAFI of unclear etiology 4. Elevated lipase Lab Data Labs: Laboratory Results - last 24 hr 03/14/25 03/14/25 03/14/25 17:15 19:20 20:19 WBC 7.3 RBC 4.15 L Hgb 13.1 Hct 38.9 MCV 93.7 MCH 31.6 MCHC 33.7 RDW Std Deviation 41.7 RDW Coeff of Helen 12.0 Plt Count 216 MPV 10.3 Immature Gran % (Auto) 0.100 Neut % (Auto) 71.2 H Lymph % (Auto) 12.6 L [place] % (Auto) 11.5 H Eos % (Auto) 3.6 Baso % (Auto) 1.0 Absolute Neuts (auto) 5.2 Absolute Lymphs (auto) 0.92 Nucleated RBC % 0 PT 12.1 INR 0.9 APTT 25.0 D-Dimer Quant (PE/DVT) 0.58 H* Sodium 139 Potassium 4.7 Chloride 103 Carbon Dioxide 24.1 Anion Gap 12 BUN 23 H Creatinine 1.70 H Estim Creat Clear Calc 16.11 L Est GFR (MDRD) Non-Af 28 L BUN/Creatinine Ratio 13.6 Glucose 114 H Calcium 10.1 Total Bilirubin 0.26 AST 19 ALT 12 Alkaline Phosphatase 86 Troponin T High Sens 25 H Troponin T Hi Sens 2 Hr 23 H NT pro BNP II 116 Total Protein 7.2 Albumin 4.4 Globulin 2.7 Albumin/Globulin Ratio 1.6 Lipase 330 H TSH 1.710 Urine Color Yellow Urine Clarity Clear Urine pH 6.0 Ur Specific [place] 1.010 Urine Protein 15 H Urine Glucose (UA) Normal Urine Ketones Negative Urine Occult Blood Negative Urine Nitrite Negative Urine Bilirubin Negative Urine Urobilinogen Normal Ur Leukocyte Esterase 100 H Urine RBC 0-5 SEEN Urine WBC 5-10 SEEN Ur Squamous Epith Cells 0-5 SEEN Urine Bacteria 0 SEEN Urine Mucus 0 SEEN Radiography Diagnostic Testing: Clinical Impression(s) from Imaging Studies Chest X-Ray 03/14/25 17:38 IMPRESSION: Probable small left pleural effusion. Otherwise stable chest radiograph. Reading Location: [facility] Abdomen/Pelvis CT 03/14/25 19:50 IMPRESSION: No acute abnormality. No abnormal fluid collections. No bowel obstruction. Limited evaluation of the pancreas without contrast Reading [facility] Discharge Plan Disposition Disposition: Acute Care Hospital [facility] Discharge Date/Time: 03/14/25 23:50
[2025-03-14] MEDS: Aspirin 81 MG TAB.CHEW 324 MG PO (17:45)
[2025-03-14 18:07] LABS: ALB/GLOB Ratio 1.6 RATIO (0.9-2.4); AST(SGOT) 19 U/L (<=31); Alanine Aminotransfer ALT/SGPT 12 U/L (<=34); Albumin, Serum 4.4 g/dL (3.4-4.8); Alkaline Phosphatase 86 U/L (35-104); Anion Gap 12 (5-15); BUN 23 mg/dL (4-19); BUN/Creat Ratio 13.6 RATIO (10-20); Calcium,Total 10.1 mg/dL (7.6-11.0); Carbon Dioxide 24.1 mmol/L (21.0-32.0); Chloride 103 mmol/L (98-108); EST Glomerular Filtration Rate 28 (>60); Estimated Creatinine Clearance 16.11 ml/min (50-250); Globulin 2.7 g/dL (2.2-4.2); Glucose 114 mg/dL (70-99); Potassium 4.7 mmol/L (3.3-5.1); Pro- Brain NATRIURETIC PEPTIDE 116 pg/mL (<=1800); Protein, Total 7.2 g/dL (5.9-8.4); Sodium Level 139 mmol/L (133-145); Total Bilirubin 0.26 mg/dL (0.00-1.30); Troponin T High Sensitivity 25 ng/L (<=14)
[2025-03-14 18:17] LABS: International Normalized Ratio 0.9; Prothrombin Time (Protime)PT. 12.1 SECONDS (11.7-14.9)
[2025-03-14] MEDS: Famotidine 200 MG/20 ML MDV 20 MG in 0.9% Normal Saline (Pres. free 8 ML 300 MG IV (18:22)
[2025-03-14 18:28] LABS: Lipase 330 U/L (13-75)
[2025-03-14 18:34] LABS: Absolute Lymphocyte Count 0.92 X10^3/uL (0.83-4.51); Absolute Neutrophil Count 5.2 X10^3/uL (2.0-7.7); Basophil# 0.07 X10^3/uL; Eosinophil# 0.26 X10^3/uL; Eosinophils% 3.6 % (0-5); Hematocrit 38.9 % (37-47); Hemoglobin 13.1 g/dL (12.0-15.0); Lymphocyte # 0.92 X10^3/ul (0.83-4.51); Lymphocyte % 12.6 % (19-41); Mean Corp Hgb Conc 33.7 g/dL (32-36); Mean Corpuscular Hgb 31.6 pg (27.0-32.0); Mean Corpuscular Volume 93.7 fL (81-99); Mean Platelet Vol. 10.3 fl (6.2-12.0); Monocyte# 0.84 X10^3/uL; Monocyte% 11.5 % (0-10); NRBC Flagged by Analyzer 0 % (0-5); Neutrophil # 5.18 X10^3/uL (2.7-7.7); Neutrophil % 71.2 % (47-70); Platelet Count 216 K/mm3 (150-450); RBC Distribution Width SD 41.7 fl (35.1-43.9); Red Blood Count 4.15 M/mm3 (4.2-5.4); White Blood Count 7.3 K/mm3 (4.4-11.0)
[2025-03-14] MEDS: Acetaminophen 325 MG Tablet 650 MG PO (18:34)
[2025-03-14 19:49] LABS: D-Dimer Quantitative (DVT/PE) 0.58 FEU/ug/m (0.27-0.49)
--- NOTE | 2025-03-14 19:50 | CT_ITS ---
PROCEDURE: ABDOMEN/PELVIS WITHOUT CONT 03/14/2025 REASON FOR EXAM: ELEVATED LIPASE, ASSESS FOR PANCREATITIS TECHNIQUE: Abdomen and pelvis CT without intravenous contrast. Noncontrast technique limits evaluation of the abdominal and pelvic viscera. Coronal and Sagittal reconstruction series were provided. One or more dose reduction techniques were used (e.g., Automated exposure control, adjustment of the mA and/or kV according to patient size, use of iterative reconstruction technique). COMPARISON: 02/24/2024 FINDINGS: Large hiatal hernia. Moderate pericardial fluid. No renal calculi. Limited evaluation of the pancreas without contrast. No liver masses. No splenic masses. No free air. No free-fluid. Negative for bowel obstruction. There is a left inguinal hernia containing small bowel. This is not produce secondary obstruction. There is no mesenteric edema. CT/Abdomen/Pelvis without Cont IMPRESSION: No acute abnormality. No abnormal fluid collections. No bowel obstruction. L imited evaluation of the pancreas without contrast Reading Location: [facility]
[2025-03-14] MEDS: 0.9% Normal Saline (1000mL) 1,000 ML 1000 ML IV (20:02)
[2025-03-14 20:12] LABS: Troponin T High Sens 2 HR 23 ng/L (<=14)
[2025-03-14 20:24] LABS: Bacteria 0 SEEN /hpf (None Seen); Mucous, Urine 0 SEEN /hpf (<or=2+)
[2025-03-14 20:28] LABS: Color, Urine Yellow (Yellow); Glucose, Dipstick Normal (Normal); Ketone-Dipstick Negative (Negative); Leukocyte Esterase-Dipstick 100 /ul (Negative); Nitrite-Dipstick Negative (Negative); Occult Blood-Urine Negative /ul (Negative); Protein-Dipstick 15 mg/dl (Negative); Urine Bilirubin Dipstick Negative (Negative); Urine Clarity Clear (Clear); Urine Urobilinogen Normal (Normal)
[2025-03-14 21:39] LABS: Red Blood Cells-Urine 0-5 SEEN /hpf (0-5); Squamous Epithelial Cells - UA 0-5 SEEN /hpf (5-10); White Blood Cells 5-10 SEEN /hpf (0-5)
--- NOTE | 2025-03-14 21:49 | PCM.HP.STD ---
HPI - General General Date of Admission: 03/14/25 Date of Service: 03/14/25 Chief Complaint: chest pain and SOB HPI Narrative ALEXANDER ZELAYA, is a 89 F with pmhx HTN, asthma, GERD, hiatal hernia, kyphosis, hypothyroidism, who presents to the ER with chest pain and SOB. This occurred earlier in the day when she was out walking. She went to lunch and went to the bank and both times when she was up walking she became sob with midsternal chest pressure. She had to sit down for several minutes until it passed. She also has mild nausea, and abdominal discomfort, and GILLETTE. She had no vomiting or diarrhea. She came to the ER and was found to have abnormal troponin and an initial EKG showing new ST depression in V4, V5, and V6. She will be admitted for chest pain workup. She currently is asymptomatic. [facility] History (Updated 03/14/25 @ 21:56 by RODERICK Montanez) Hiatal hernia Hypothyroid HTN (hypertension) Home Medications ?Medication ?Instructions ?Recorded ?Last Taken ?Type Omeprazole [Prilosec] 20 mg PO DAILY 12/06/13 03/23/19 History fluticasone 250 mcg-salmeterol 50 1 puff inhalation BID 12/06/13 Unknown History mcg/dose blistr powdr for inhalation (Advair Diskus) levothyroxine 25 mcg tablet 50 mcg PO DAILY 12/06/13 03/23/19 History docusate sodium 100 mg capsule 100 mg PO DAILY 03/20/19 Unknown History lisinopril 20 mg tablet 20 mg PO DAILY 03/20/19 Unknown History Allergy/AdvReac Type Severity Reaction Status Date / Time Sulfa (Sulfonamide Allergy Unknown Verified 03/14/25 17:08 Antibiotics) Surgical History (Updated 03/14/25 @ 21:55 by RODERICK Montanez) H/O kyphoplasty H/O: hysterectomy Social History Smoking Status: Never smoker ROS Constitutional Constitutional: Denies chills, fatigue or fever(s) Eyes Eyes: Denies blurry vision ENT HEENT: Denies nasal congestion or sore throat Cardiovascular Cardiovascular: Reports chest pain and dyspnea on exertion; Denies lightheadedness or palpitations Respiratory/Chest Respiratory/Chest: Reports dyspnea; Denies cough or productive cough Gastrointestinal Gastrointestinal: Reports abdominal pain and nausea; Denies diarrhea or vomiting Genitourinary Genitourinary: Denies burning urination Musculoskeletal Musculoskeletal: Reports arthralgias and back pain Neurologic Neurologic: Denies abnormal gait Psychiatric Psychiatric: Denies anxiety Endocrine Endocrinology: Denies change in body appearance Hematologic/Lymphatic Hematologic/Lymphatic: Denies anemia Allergic/Immunologic Allergic/Immunologic: Denies rhinitis Vital Signs Vital Signs Vital Signs: 03/14/25 17:07 03/14/25 17:14 03/14/25 17:15 Temperature 97.9 F Temperature Source Oral Pulse Rate 85 Respiratory Rate 16 Respiratory Effort Normal Non-Labored Normal Non-Labored Respiratory Depth Normal Respiratory Pattern Normal Blood Pressure 158/95 H Blood Pressure Mean 116 Pulse Ox 94 Oxygen Delivery Method Room Air Room Air 03/14/25 17:57 03/14/25 19:00 03/14/25 20:16 Temperature Temperature Source Pulse Rate 75 66 70 Respiratory Rate 16 18 18 Respiratory Effort Respiratory Depth Respiratory Pattern Blood Pressure 126/78 H 136/76 H Blood Pressure Mean 94 96 Pulse Ox 97 95 95 Oxygen Delivery Method Room Air Room Air Room Air 03/14/25 21:00 03/14/25 21:05 Temperature 97.9 F Temperature Source Pulse Rate 88 75 Respiratory Rate 21 H 27 H Respiratory Effort Respiratory Depth Respiratory Pattern Blood Pressure 133/81 H 133/81 H Blood Pressure Mean 98 98 Pulse Ox 97 95 Oxygen Delivery Method Room Air Weight Weight: 48.1 kg Body Mass Index (BMI) 21.4 Physical Exam Const alert and oriented x3 General Appearance: cooperative HEENT normocephalic and head/scalp atraumatic Eyes PERRL Neck no lymphadenopathy Resp normal respiratory effort Cardio regular rate, regular rhythm and no murmurs GI normal to inspection, nondistended, normoactive bowel sounds, soft to palpation and non-tender Extremity normal to inspection Neuro oriented x3 Sensorium / Orientation: awake and alert Psych affect normal Results Lab / Micro Data 03/14/25 17:15 03/14/25 17:15 Labs: Laboratory Results - last 24 hr 03/14/25 17:15: WBC 7.3, RBC 4.15 L, Hgb 13.1, Hct 38.9, MCV 93.7, MCH 31.6, MCHC 33.7, RDW Std Deviation 41.7, RDW Coeff of Helen 12.0, Plt Count 216, MPV 10.3, Immature Gran % (Auto) 0.100, Neut % (Auto) 71.2 H, Lymph % (Auto) 12.6 L, [place] % (Auto) 11.5 H, Eos % (Auto) 3.6, Baso % (Auto) 1.0, Absolute Neuts (auto) 5.2, Absolute Lymphs (auto) 0.92, Nucleated RBC % 0, PT 12.1, INR 0.9, APTT 25.0, D-Dimer Quant (PE/DVT) 0.58 H*, Sodium 139, Potassium 4.7, Chloride 103, Carbon Dioxide 24.1, Anion Gap 12, BUN 23 H, Creatinine 1.70 H, Estim Creat Clear Calc 16.11 L, Est GFR (MDRD) Non-Af 28 L, BUN/Creatinine Ratio 13.6, Glucose 114 H, Calcium 10.1, Total Bilirubin 0.26, AST 19, ALT 12, Alkaline Phosphatase 86, Troponin T High Sens 25 H, NT pro BNP II 116, Total Protein 7.2, Albumin 4.4, Globulin 2.7, Albumin/Globulin Ratio 1.6, Lipase 330 H, TSH 1.710 03/14/25 19:20: Troponin T Hi Sens 2 Hr 23 H 03/14/25 20:19: Urine Color Yellow, Urine Clarity Clear, Urine pH 6.0, Ur Specific [place] 1.010, Urine Protein 15 H, Urine Glucose (UA) Normal, Urine Ketones Negative, Urine Occult Blood Negative, Urine Nitrite Negative, Urine Bilirubin Negative, Urine Urobilinogen Normal, Ur Leukocyte Esterase 100 H, Urine RBC 0-5 SEEN, Urine WBC 5-10 SEEN, Ur Squamous Epith Cells 0-5 SEEN, Urine Bacteria 0 SEEN, Urine Mucus 0 SEEN Imaging Radiology Impression Chest X-Ray 03/14/25 17:38 IMPRESSION: Probable small left pleural effusion. Otherwise stable chest radiograph. Reading Location: [id number] Abdomen/Pelvis CT 03/14/25 19:50 IMPRESSION: No acute abnormality. No abnormal fluid collections. No bowel obstruction. Limited evaluation of the pancreas without contrast Reading Location: [facility] Assessment & Plan Assessment/Plan (1) Chest pain: PLAN: 1. Chest pain with indeterminate troponin and new EKG ST depression V4, V5, V6, resolved on repeat EKG. Pt will be placed in observation on telemetry. Per cardiology recommendation pt to undergo stress test in the AM. She will also have an echocardiogram. Will repeat cardiac enzymes. Maintain on tele. Start metoprolol, aspirin. mickey held for RAFI. CXR reviewed, sm L pleural effusion. BNP normal TSH normal check lipids and mag/phos 2. RAFI - Cr 1.7 up from baseline around 1.09. Continue IV fluids and recheck renal function in the AM. Hold MICKEY-I 3. Elevated lipase - unclear etiology. CT abdomen and pelvis w/o contrast shows large hiatal hernia and moderate pericardial fluid. 4. Hx GERD and hiatal hernia - continue PPI. pt of Dr. Kurtz. 5. HTN - mickey held as above, start metoprolol 6. hypothyroid - on synthroid, tsh normal 7. Asthma hx - no exacerbation. aerosols prn DVT ppx: heparin DC planning: pt lives alone. Code status: [id number] This patient was seen by Omi Graves PA-C under the supervision of Doctor Persaud.
--- OUTSIDE RECORDS SUMMARY | 2025-03-14 22:17 | XMS RPT_ITS | CCD ---
Author Organization [facility] CliniSyfl Care Team Providers Care Inspector Dials Name Role Phone GREG, EMERALD E Unavailable Unavailable GREG, EMERALD E Unavailable Unavailable GREG, EMERALD Unavailable Unavailable GREG, EMERALD Unavailable Unavailable GREG, EMERALD Unavailable Unavailable GREG, EMERALD Unavailable Unavailable LISA LO ([facility]) Unavailable Unavailable HILTON CISSE Unavailable Unavailable YAMILET LANIER () Unavailable Unav ailable YAMILET LANIER () Unavailable Unav ailable GREG, EMERALD E Unavailable Unavailable GREG, EMERALD E Unavailable Unavailable Muñiz, Tawanda Primary Care Unavailable Friend, Elliott Attending Unavailable Friend, Elliott Referring Unavailable Muñiz, Tawanda Attending Unavailable Muñiz, Tawanda Referring Unavailable Muñiz, Tawanda Primary Care Unavailable Muñiz, Tawanda Referring Unavailable Muñiz, Tawanda Primary Care Unavailable Muñiz, Tawanda Attending Unavailable Mata, Goyo Attending Unavailable Mata, Goyo Referring Unavailable Muñiz, Tawanda Primary Care Unavailable Muñiz, Tawanda Referring Unavailable Friend, Elliott Attending Unavailable Muñiz, Tawanda Primary Care Unavailable Allergies Allergy Classification Reported Allergen(s) Allergy Type Date of Onset Reaction(s) Facility (3 sources) alendronate; Translations: [ALENDRONATE SODIUM] Drug Allergy 8 [facility] Repository (8 sources) Sulfonamides (Antibiotic); Translations: [SULFA (SULFONAMIDE ANTIBIOTICS)] Propensity to adverse reactions to drug (disorder) 5 AOF, Unknown [facility] Repository (3 sources) HOMEOPATHIC PRODUCTS; Translations: [HOMEOPATHIC PRODUCTS] Propensity to adverse reactions to drug (disorder) 7 AOF [facility] Repository (3 sources) AMOXICILLIN-POT CLAVULANATE; Translations: [AMOXICILLIN-POT CLAVULANATE] Propensity to adverse reactions to drug (disorder) 8 [facility] Repository Medications Current Medications Medication Drug Class(es) Dates Sig (Normalized) Sig (Original) ciprofloxacin 500 mg oral tablet (2 sources) Quinolone Antimicrobial Start: 02-18-2023 take 1 tablet by mouth twice daily Ciprofloxacin Hcl (Cipro) 500 mg tablet Active 500 MG PO TWICE A DAY February 18, 2023 12:00am docusate sodium 100 mg oral capsule (4 sources) Start: 03-20-2019 take 100 mg by mouth once daily Docusate Sodium Active 100 MG PO DAILY March 20, 2019 12:00am Fluticasone Propion-Salmeterol (4 sources) Corticosteroid, beta2-Adrenergic Agonist Start: 12-06-2013 take 1 puff(s) by inhalation twice daily Fluticasone Propion-Salmeterol (Advair 250/50 Mcg Diskus) 1 PUFF inhaler Active 1 PUFF INHALATION TWICE A DAY December 06, 2013 1:00am Start: 12-06-2013 take 1 puff(s) by in halation twice daily Fluticasone Propion-Salmeterol (Advair 250/50 Mcg Diskus) 1 PUFF inhaler Active 1 PUFF INHALATION TWICE A DAY December 06, 2013 12:00am levothyroxine sodium 0.025 mg oral tablet (4 sources) l-Thyroxine Start: 12-06-2013 take 50 ug by mouth once daily Levothyroxine Active 50 MCG PO DAILY December 06, 2013 1:00am lisinopril 20 mg oral tablet (4 sources) Angiotensin Converting Enzyme Inhibitor Start: 03-20-2019 take 20 mg by mouth once daily Lisinopril Active 20 MG PO DAILY March 20, 2019 12:00am metroNIDAZOLE 500 mg oral tablet (2 sources) Nitroimidazole Antimicrobial Start: 02-18-2023 take 500 mg by mouth three times daily Metronidazole Active 500 MG PO THREE TIMES A DAY February 18, 2023 12:00am omeprazole 40 mg delayed release oral capsule (4 sources) Proton Pump Inhibitor Start: 12-06-2013 Omeprazole (Prilosec) 40 MG capsule Active 20 MG PO DAILY December 06, 2013 1:00am traMADol hydrochloride 50 mg oral tablet (4 sources) Opioid Agonist Start: 03-20-2019 take 50 mg by mouth every six hours as needed Tramadol Active 50 MG PO EVERY 6 HOURS NEEDED March 20, 2019 12:00am Problems Active Problems Problem Classification Problem Date Documented Da te Episodic/Chronic Asthma (4 sources) Asthma; Translations: [Unspecified asthma, uncomplicated] 11-13-2015 Chronic Esophageal disorders (4 sources) Gastroesophageal reflux disease; Translations: [Gastro-esophageal reflux disease without esophagitis] 11-13-2015 Chronic Essential hypertension (5 sources) Benign essential hypertension; Translations: [Essential (primary) hypertension] Onset: 11-13-2015 Chronic Fracture of upper limb (4 sources) Fracture at wrist and/or hand level; Translations: [Fracture of unspecified carpal bone, right wrist, initial encounter for closed fracture] 05-06-2019 Episodic Gastrointestinal hemorrhage (2 sources) Gastrointestinal hemorrhage; Translations: [Gastrointestinal hemorrhage, unspecified] 02-26-2023 Episodic Noninfectious gastroenteritis (2 sources) Colitis; Translations: [Noninfective gastroenteritis and colitis, unspecified] 02-26-2023 Episodic Other acquired deformities (4 sources) Kyphosis deformity of spine; Translations: [Unspecified kyphosis, site unspecified] 10-25-2013 Chronic Other injuries and conditions due to external causes (4 sources) Abrasion and/or friction burn of multiple sites; Translations: [Unspecified multiple injuries, initial encounter] 05-06-2019 Episodic Thyroid disorders (4 sources) Hypothyroidism; Translations: [Hypothyroidism, unspecified] 11-13-2015 Chronic Unclassified (2 sources) Unknown / UNK(Unknown) Onset: 7 Unclassified (4 sources) left lower lobe nodule 10-25-2013 Past or Other Problems Problem Classification Problem Date Documented Date Episodic/Chronic Abdominal hernia (1 source) Diaphragmatic hernia without obstruction or gangrene; Translations: [Diaphragmatic hernia without obstruction or gangrene] Onset: 03-02-2024 Episodic Other lower respiratory disease (1 source) Shortness of breath; Translations: [Shortness of breath] Onset: 01-19-2024 Episodic Other non-traumatic joint disorders (1 source) Pain in left hip; Translations: [Pain in left hip] Onset: 08-14-2024 Episodic Residual codes; unclassified (1 source) Localized edema; Translations: [Localized edema] Onset: 12-05-2017 Episodic Unclassified (1 source) Recheck Onset: 09-01-2017 Varicose veins of lower extremity (1 source) Asymptomatic varicose veins of bilateral lower extremities; Translations: [Asymptomatic varicose veins of bilateral lower extremities] Onset: 12-05-2017 Episodic Results Test Name Value Interpretation Reference Range Facility CBC W/Diff, Automatedon 11-04 Absolute Lymph 0.69 X10 3/uL Low 0.83-4.51 [facility] Comment on above: Order Comment: Order Date: 11/26/24 Order Info: 0184-1 - CBCD Performed By: #### L 502.0250, L506.1000, L503.0105, L500.4050, L100.0100, L506.0250, L501.9520 #### [facility] [address] [place], [address] Absolute Neut 4.1 X10 3/uL Normal 2.0-7.7 [facility] Comment on above: Order Comment: Order Date: 11/26/24 Order Info: 0184-1 - CBCD Performed By: #### L 502.0250, L506.1000, L503.0105, L500.4050, L100.0100, L506.0250, L501.9520 #### [facility] [address] [facility] [place], [address] Basophils/100 WBC (Bld) 1.0 % Normal 0-1 [facility] Comment on above: Order Comment: Order Date: 11/26/24 Order Info: 0184-1 - CBCD Performed By: #### L 502.0250, L506.1000, L503.0105, L500.4050, L100.0100, L506.0250, L501.9520 #### [facility] [address] [place], [address] Eosinophils/100 WBC (Bld) 7.5 % High 0-5 [facility] Comment on above: Order Comment: Order Date: 11/26/24 Order Info: 0184-1 - CBCD Performed By: #### L 502.0250, L506.1000, L503.0105, L500.4050, L100.0100, L506.0250, L501.9520 #### [facility] [address] [place], [address] Erythrocyte distribution width (RBC) [Ratio] 12.5 % Normal 11.6-14.6 [facility] Comment on above: Order Comment: Order Date: 11/26/24 Order Info: 0184-1 - CBCD Performed By: #### L 502.0250, L506.1000, L503.0105, L500.4050, L100.0100, L506.0250, L501.9520 #### [facility] [address] [place], [address] Hematocrit (Bld) [Volume fraction] 41.8 % Normal 37-47 [facility] Comment on above: Order Comment: Order Date: 11/26/24 Order Info: 0184-1 - CBCD Performed By: #### L 502.0250, L506.1000, L503.0105, L500.4050, L100.0100, L506.0250, L501.9520 #### [facility] [address] [place], [address] Hemoglobin (Bld) [Mass/Vol] 13.1 g/dL Normal 12.0-15.0 [facility] Comment on above: Order Comment: Order Date: 11/26/24 Order Info: 0184-1 - CBCD Performed By: #### L 502.0250, L506.1000, L503.0105, L500.4050, L100.0100, L506.0250, L501.9520 #### [facility] [address] [place], [address] IG% 0.200 Normal 0.0-0.9 [facility] Comment on above: Order Comment: Order Date: 11/26/24 Order Info: 0184-1 - CBCD Result Comment: IG% - Immature Granulocytes (promyelocytes, myelocytes and metamyelocytes) > 1% indicates that a LEFT SHIFT is Present. Performed By: #### L 502.0250, L506.1000, L503.0105, L500.4050, L100.0100, L506.0250, L501.9520 #### [facility] [address] [place], [address] Lymphocytes/100 WBC (Bld) 11.6 % Low 19-41 [facility] Comment on above: Order Comment: Order Date: 11/26/24 Order Info: 0184-1 - CBCD Performed By: #### L 502.0250, L506.1000, L503.0105, L500.4050, L100.0100, L506.0250, L501.9520 #### [facility] [address] [place], [address] MCH (RBC) [Entitic mass] 30.8 pg Normal 27.0-32.0 [facility] Comment on above: Order Comment: Order Date: 11/26/24 Order Info: 0184-1 - CBCD Performed By: #### L 502.0250, L506.1000, L503.0105, L500.4050, L100.0100, L506.0250, L501.9520 #### [facility] [address] [place], [address] MCHC (RBC) [Mass/Vol] 31.3 g/dL Low 32-36 [facility] Comment on above: Order Comment: Order Date: 11/26/24 Order Info: 0184-1 - CBCD Performed By: #### L 502.0250, L506.1000, L503.0105, L500.4050, L100.0100, L506.0250, L501.9520 #### [facility] [address] [place], [address] MCV (RBC) [Entitic vol] 98.4 fL Normal 81-99 [facility] Comment on above: Order Comment: Order Date: 11/26/24 Order Info: 0184-1 - CBCD Performed By: #### L 502.0250, L506.1000, L503.0105, L500.4050, L100.0100, L506.0250, L501.9520 #### [facility] [address] [place], [address] Monocytes/100 WBC (Bld) 11.7 % High 0-10 [facility] Comment on above: Order Comment: Order Date: 11/26/24 Order Info: 0184-1 - CBCD Performed By: #### L 502.0250, L506.1000, L503.0105, L500.4050, L100.0100, L506.0250, L501.9520 #### [facility] [address] [place], [address] Neutrophils/100 WBC (Bld) 68.0 % Normal 47-70 [facility] Comment on above: Order Comment: Order Date: 11/26/24 Order Info: 0184-1 - CBCD Performed By: #### L 502.0250, L506.1000, L503.0105, L500.4050, L100.0100, L506.0250, L501.9520 #### [facility] [address] [place], [address] Nucleated RBC (Bld) [#/Vol] 0 10*3/uL Normal 0-5 [facility] Comment on above: Order Comment: Order Date: 11/26/24 Order Info: 0184-1 - CBCD Performed By: #### L 502.0250, L506.1000, L503.0105, L500.4050, L100.0100, L506.0250, L501.9520 #### [facility] [address] [place], [address] Platelet mean volume (Bld) [Entitic vol] 10.1 fL Normal 6.2-12.0 [facility] Comment on above: Order Comment: Order Date: 11/26/24 Order Info: 0184-1 - CBCD Performed By: #### L 502.0250, L506.1000, L503.0105, L500.4050, L100.0100, L506.0250, L501.9520 #### [facility] [address] [place], [address] Platelets (Bld) [#/Vol] 244 10*3/uL Normal 150-450 [facility] Comment on above: Order Comment: Order Date: 11/26/24 Order Info: 0184- - CBCD Performed By: #### L 502.0250, L506.1000, L503.0105, L500.4050, L100.0100, L506.0250, L501.9520 #### [facility] [address] [place], [address] RBC (Bld) [#/Vol] 4.25 10*6/uL Normal 4.2-5.4 [facility] Comment on above: Order Comment: Order Date: 11/26/24 Order Info: 0184-1 - CBCD Performed By: #### L 502.0250, L506.1000, L503.0105, L500.4050, L100.0100, L506.0250, L501.9520 #### [facility] [address] [place], [address] RDW SD 45.2 fl High 35.1-43.9 [facility] Comment on above: Order Comment: Order Date: 11/26/24 Order Info: 0184-1 - CBCD Performed By: #### L 502.0250, L506.1000, L503.0105, L500.4050, L100.0100, L506.0250, L501.9520 #### [facility] [address] [place], [address] WBC (Bld) [#/Vol] 6.0 10*3/uL Normal 4.4-11.0 [facility] Comment on above: Order Comment: Order Date: 11/26/24 Order Info: 0184-1 - CBCD Performed By: #### L 502.0250, L506.1000, L503.0105, L500.4050, L100.0100, L506.0250, L501.9520 #### [facility] [address] [place], [address] Comprehensive Metabolic Prof ilon 11-26-2024 Albumin [Mass/Vol] 3.6 g/dL Normal 3.2-5.0 [facility] Comment on above: Order Comment: Order Date: 11/26/24Order Info: 0786-1 - CMPOrder Info: 3016-3 - TSHOrder Info: 2284-8 - FOLS Performed By: #### L 503.6620, L100.0100 #### [facility] [address] [place], [address] Albumin/Globulin [Mass ratio] 1.0 {ratio} Normal 0.9-2.4 [facility] Comment on above: Order Comment: Order Date: 11/26/24Order Info: 0786-1 - CMPOrder Info: 6-3 - TSHOrder Info: 2283-8 - FOLS Performed By: #### L 503.6620, L100.0100 #### [facility] [address] [place], [address] ALK P 92 U/L Normal 45-117 [facility] Comment on above: Order Comment: Order Date: 11/26/24Order Info: 0786-1 - CMPOrder Info: 3016-3 - TSHOrder Info: 228-8 - FOLS Performed By: #### L 503.6620, L100.0100 #### [facility] [address] [place], [address] ALT [Catalytic activity/Vol] 19 U/L Normal 13-56 [facility] Comment on above: Order Comment: Order Date: 11/26/24Order Info: 0786-1 - CMPOrder Info: 3015-3 - TSHOrder Info: 228-8 - FOLS Performed By: #### L 503.6620, L100.0100 #### [facility] [address] [place], [address] AST [Catalytic activity/Vol] 15 U/L Normal 15-37 [facility] Comment on above: Order Comment: Order Date: 11/26/24Order Info: 86-1 - CMPOrder Info: 3 - TSHOrder Info: 228-8 - FOLS Performed By: #### L 503.6620, L100.0100 #### [facility] [address] [place], [address] Bilirubin [Mass/Vol] 0.30 mg/dL Normal 0.20-1.00 [facility] Comment on above: Order Comment: Order Date: 11/26/24Order Info: 785- - CMPOrder Info: 3015-12 - TSHOrder Info: 2284-8 - FOLS Result Comment: For patients on eltrombopag therapy, use of Dimension [place] TBIL is not recommended. Performed By: #### L 503.6620, L100.0100 #### [facility] [address] [place], [address] BUN/CRE 14.7 RATIO Normal 10-20 [facility] Comment on above: Order Comment: Order Date: 11/26/24Order Info: 785- - CMPOrder Info: 3015-12 - TSHOrder Info: 228-8 - FOLS Performed By: #### L 503.6620, L100.0100 #### [facility] [address] [place], [address] CA,Total 9.5 mg/dL Normal 8.5-10.1 [facility] Comment on above: Order Comment: Order Date: 11/26/24Order Info: 07-1 - CMPOrder Info: 3015-12 - TSHOrder Info: 2284-8 - FOLS Performed By: #### L 503.6620, L100.0100 #### [facility] [address] [place], [address] Chloride [Moles/Vol] 107 mmol/L Normal 98-107 [facility] Comment on above: Order Comment: Order Date: 11/26/24Order Info: 0786-1 - CMPOrder Info: 63 - TSHOrder Info: 2284-05 - FOLS Performed By: #### L 503.6620, L100.0100 #### [facility] [address] [place], [address] CO2 [Moles/Vol] 29.0 mmol/L Normal 21.0-32.0 [facility] Comment on above: Order Comment: Order Date: 11/26/24Order Info: 0786-1 - CMPOrder Info: 3 - TSHOrder Info: 2284-05 - FOLS Performed By: #### L 503.6620, L100.0100 #### [facility] [address] [place], [address] Creatinine [Mass/Vol] 1.09 mg/dL High 0.55-1.02 [facility] Comment on above: Order Comment: Order Date: 11/26/24Order Info: 0786-1 - CMPOrder Info: 3 - TSHOrder Info: 8 - FOLS Result Comment: The validity of the calculated GFR GFRAA in patients over 70 years has not been determined. Clinical correlation is essential. Performed By: #### L 503.6620, L100.0100 #### [facility] [address] [place], [address] EST GFR - AA 61 mL/min Normal >60 [facility] Comment on above: Order Comment: Order Date: 11/26/24Order Info: 0786-1 - CMPOrder Info: 6-3 - TSHOrder Info: 2283-8 - FOLS Result Comment: Afri can German GFR Calc Performed By: #### L 503.6620, L100.0100 #### [facility] [address] [place], [address] GAP 5 Normal 5-15 [facility] Comment on above: Order Comment: Order Date: 11/26/24Order Info: 0786-1 - CMPOrder Info: 6-3 - TSHOrder Info: 228-8 - FOLS Performed By: #### L 503.6620, L100.0100 #### [facility] [address] [place], [address] GFR/1.73 sq M.predicted among non-blacks MDRD (S/P/Bld) [Vol rate/Area] 50 mL/min/{1.73_m2} Low >60 [facility] Comment on above: Order Comment: Order Date: 11/26/24Order Info: 0786-1 - CMPOrder Info: 3015-3 - TSHOrder Info: 8 - FOLS Result Comment: Non- GFR Calc Performed By: #### L 503.6620, L100.0100 #### [facility] [address] [place], [address] Globulin (S) [Mass/Vol] 3.7 g/dL Normal 2.2-4.2 [facility] Comment on above: Order Comment: Order Date: 11/26/24Order Info: 0786- - CMPOrder Info: 3 - TSHOrder Info: 8 - FOLS Performed By: #### L 503.6620, L100.0100 #### [facility] [address] [place], [address] Glucose [Mass/Vol] 103 mg/dL Normal 74-106 [facility] Comment on above: Order Comment: Order Date: 11/26/24Order Info: 0786-1 - CMPOrder Info: 3015-3 - TSHOrder Info: 228-8 - FOLS Result Comment: Fast ing Glucose result from 100 to 125 mg/dL suggests IMPAIRED HOMEOSTASIS per A.D.A. criteria. Performed By: #### L 503.6620, L100.0100 #### [facility] [address] [place], [address] Potassium [Moles/Vol] 3.9 mmol/L Normal 3.5-5.1 [facility] Comment on above: Order Comment: Order Date: 11/26/24Order Info: 86-1 - CMPOrder Info: 3 - TSHOrder Info: 2284-8 - FOLS Performed By: #### L 503.6620, L100.0100 #### [facility] [address] [place], [address] Sodium [Moles/Vol] 141 mmol/L Normal 136-145 [facility] Comment on above: Order Comment: Order Date: 11/26/24Order Info: 785- - CMPOrder Info: 3 - TSHOrder Info: 2284-8 - FOLS Performed By: #### L 503.6620, L100.0100 #### [facility] [address] [place], [address] T PROT 7.3 g/dL Normal 6.4-8.2 [facility] Comment on above: Order Comment: Order Date: 11/26/24Order Info: 785- - CMPOrder Info: 3 - TSHOrder Info: 2284-8 - FOLS Performed By: #### L 503.6620, L100.0100 #### [facility] [address] [place], [address] Urea nitrogen [Mass/Vol] 16 mg/dL Normal 7-18 [facility] Comment on above: Order Comment: Order Date: 11/26/24Order Info: 785-1 - CMPOrder Info: 3 - TSHOrder Info: 2284-8 - FOLS Performed By: #### L 503.6620, L100.0100 #### [facility] [address] [place], [address] Folates, (Folic Acid)on 11-04 FOLATES 5.70 ng/mL Normal 3.1-55.4 [facility] Comment on above: Order Comment: Order Date: 11/26/24Order Info: 0786-1 - CMPOrder Info: 3015-12 - TSHOrder Info: 2284-05 - FOLSN Performed By: #### L 503.6620, L100.0100 #### [facility] [address] [place], [address] Microalb:Creat Ratio,Random URon 11-26-2024 Creatinine [Mass/Vol] 195.00 mg/dL Normal NO RANGE EST. [facility] Comment on above: Order Comment: Order Date: 11/26/24Order Info: 0779- - MIACRE Performed By: #### L 503.6620, L100.0100 #### [facility] [address] [place], [address] MALB:CRE 35.5 mg/g CRE High <30 mg/g CRE [facility] Comment on above: Order Comment: Order Date: 11/26/24Order Info: 0779- - MIACRE Performed By: #### L 503.6620, L100.0100 #### [facility] [address] [place], [address] MICROALBUMIN,UR 69.2 mg/L Normal NO RANGE EST. [facility] Comment on above: Order Comment: Order Date: 11/26/24Order Info: 0779-1 - MIACRE Performed By: #### L 503.6620, L100.0100 #### [facility] [address] [place], [address] Thyroid Stim Hormone (TSH)on 11-26-2024 TSH 2.300 uIU/mL Normal 0.358-3.74 0 [facility] Comment on above: Order Comment: Order Date: 11/26/24Order Info: 0786-1 - CMPOrder Info: 3015-12 - TSHOrder Info: 2284-05 - FOLS Performed By: #### L 503.6620, L100.0100 #### [facility] [address] [place], [address] Vitamin B12on 11-26-2024 Cobalamin (Vitamin B12) [Mass/Vol] 320 pg/mL Normal 211-911 [facility] Comment on above: Order Comment: Order Date: 11/26/24 Order Info: 9 - B12 Order Info: 56425-3 - VITD25 Performed By: #### L 502.0250, L506.1000, L503.0105, L500.4050, L100.0100, L506.0250, L501.9520 #### [facility] [address] [place], [address] Vitamin D,25 Hydroxyon 11-26 Vitamin D 25-OH 37.8 ng/mL Normal [facility] Comment on above: Order Comment: Order Date: 11/26/24 Order Info: 9 - B12 Order Info: [id number] - VITD25 Result Comment: Fabiola min D 25(OH) Status Range Deficiency <20 ng/mL (50nmol/L) Insufficiency 20 - 30 ng/mL (50 - 75 nmol/L) Sufficiency 30 - 100 ng/mL (75 - 250 nmol/L) Toxicity >100 ng/mL (>250 nmol/L) Performed By: #### L 502.0250, L506.1000, L503.0105, L500.4050, L100.0100, L506.0250, L501.9520 #### [facility] [address] [place], [address] HIP, UNI W/ Pelvis 2-3 Views on 07-18-2024 HIP, UNI W/ Pelvis 2-3 Views [facility] [address] [place] [address] HIP, UNI W/ Pelvis 2-3 Views MR#: [id number] Acct: [id number] Name: ARLIN MURRAY Rep #: [id number] : 1935 F 88 From: Richmond Naylor PCP: Dr. Tawanda Muñiz MD Status: REG CLI Study: HIP, UNI W/ Pelvis 2-3 Views Date of Exam: Exam# [id number] Ordering Dr: Tawanda Muñiz MD [id number] EXAM: XR LEFT HIP WITH PELVIS WHEN PERFORMED, 2 OR 3 VIEWS CLINICAL INDICATION: Rule out bone spur TECHNIQUE: Two or three views of the left hip with pelvis when performed. COMPARISON: No relevant prior studies available. FINDINGS: BONES/JOINTS: Degenerative findings in the lumbar spine. No displaced fracture. No destructive or sclerotic lesions. Note that overlapping bowel shadows may however obscure fine detail. Sacroiliac joint is unremarkable. No widening of the pubic symphysis. SOFT TISSUES: Unremarkable. No soft tissue swelling or gas. RAD/HIP, UNI W/ Pelvis 2-3 Views IMPRESSION: Degenerative findings in the lumbar spine. Electronically Signed: Richmond Alejandra MD at 18:52 EDT Reading Location ID and State: [facility] / [place] , Service support , CC: Dr. Tawanda Muñiz MD Banking Representative: Signed Normal [facility] CREATININE FINGERSTICKon Creatinine [Mass/Vol] 1.0 mg/dL Normal 0.55-1.02 [facility] Comment on above: Performed By: #### L 9100.0200 #### [facility] [address] [place], [place], [address] GFR/1.73 sq M.predicted among non-blacks MDRD (S/P/Bld) [Vol rate/Area] 53.0000 mL/min/{1.73_m2} Low >60 [facility] Comment on above: Performed By: #### L 9100.0200 #### [facility] [address] [place], [place], [address] CT Chest AND Abd W/ Contrast on 02-24-2024 CT Chest AND Abd W/ Contrast [facility] [address] [place] [id number] [place] Chest AND Abd W/ Contrast MR#: [id number] Acct: [id number] Name: ARLIN MURRAY Rep #: [id number] : 1935 F 88 From: Erica Nash MD PCP: Dr. Tawanda Muñiz MD Status: REG CLI Study: CT Chest AND Abd W/ Contrast Date of Exam: Exam# [id number] Ordering Dr: Elliott Kurtz DO [id number] EXAM: CT CHEST AND ABDOMEN WITH INTRAVENOUS CONTRAST CLINICAL INDICATION: Hiatal hernia TECHNIQUE: Helically acquired images were obtained of the chest and abdomen with intravenous contrast. This CT exam was performed using one or more of the following dose reduction techniques: automated exposure control, adjustment of the mA and/or kV according to patient size, and/or use of iterative reconstruction technique. RADIATION DOSE: CTDIvol = 7.76 mGy, DLP = 315.92 mGy-cmContrast: IV 100mL Isovue-300 COMPARISON: Abdomen and pelvis CT February 18, 2023 mentioned large hiatal hernia and colitis involving descending and sigmoid colon, T12 vertebroplasty, fatty liver. FINDINGS: CHEST: LUNGS AND PLEURAL SPACES: Mildly thick band of opacity left upper lobe abutting the fissure extending into the lingula may be thick discoid atelectasis or infiltrate. Slight irregular groundglass opacities in the right upper lobe. No mass. No pleural effusion or thickening. No central airway obstruction. Moderately dense breast parenchyma appears fairly symmetric. HEART: Mild pericardial effusion anterior-inferior to the heart, roughly 1.1 cm thickness MEDIASTINUM: Multiple punctate calcifications in the subcarinal region and left infrahilar region, presumed old granulomatous disease. Small calcified granuloma in the left lung base. Again noted is similar appearance of large hiatal hernia, with mid to distal stomach body entering the abdomen. The hiatal hernia is not significantly distended to suggest obvious gastric obstruction, and there is mild fluid, gas in the hernia and mild fluid and gas in the distal intra-abdominal stomach. The proximal small bowel loops are relatively collapsed. The herniated stomach estimated to be 6.3 cm x 7.6 cm. Only mild gas in the proximal esophagus, it is not significantly distended. No mediastinal or hilar adenopathy. THYROID: Unremarkable. No thyroid lesions. ABDOMEN: LIVER: Unremarkable. Homogeneous. No focal mass. GALLBLADDER AND BILE DUCTS: Unremarkable. No calcified gallstones. No gallbladder distention or wall edema. No intra- or extrahepatic biliary ductal dilation. PANCREAS: Mildly coarse calcification between the proximal body of the pancreas, deep to the pylorus appears chronic. No focal cystic or solid mass. SPLEEN: Unremarkable. Normal size without focal cystic or solid mass. ADRENALS: Mild fullness of the adrenals. KIDNEYS AND URETERS: Unremarkable. Normal renal size and position. No hydronephrosis. STOMACH AND BOWEL: See above. INTRAPERITONEAL SPACE: Unremarkable. No ascites or other fluid collection. No free air. CHEST and ABDOMEN: BONES/JOINTS: Marked kyphosis of the thoracic spine with multiple compression deformities and vertebroplasty exam T9 and T12. Marked demineralization. Marked chronic-appearing compression deformities of T8 and T5. No visible acute fracture lines spinal stenosis. No suspicious lytic or blastic abnormality. SOFT TISSUES: See above. VASCULATURE: No aortic aneurysm or dissection. Mild atherosclerotic calcification of aorta and calcifications at the origins of the intra-abdominal arteries. No obvious central pulmonary embolism although this study was not performed with the pulmonary embolism protocol. LYMPH NODES: Unremarkable. No enlarged lymph nodes. CT/CT Chest AND Abd W/ Contrast IMPRESSION: 1. Large but not visibly obstructed hiatal hernia. 2. Thick band of discoid atelectasis and/or mild airspace disease in left lung extending to the lingula. Mild groundglass opacities scattered in the right upper lobe, possibly mild pneumonitis. 3. Marked spine demineralization, marked thoracic kyphosis, multiple chronic compression deformities and multiple vertebroplasties. No acute thoracic fractures are demonstrated. 4. Question of mild adrenal hyperplasia. 5. No evidence of significant PE or aortic aneurysm or dissection. The vessels are adequately opacified. 6. Old granulomatous disease. Slight pericardial effusion. Electronically Signed: Erica Nash MD at 3:34 EDT , CC: Dr. Tawanda Muñiz MD; Elliott Kurtz DO Banking Representative: Signed [facility] Gastroenterology Visit Repor ton 01-26-2024 Gastroenterology Visit Report [facility] [address] [place] [address] OFFICE VISIT Date of Service: 01/26/24 MR#: [id number] Acct: [id number] Name: ARLIN MURRAY Rep #: [id number] : 1935 Provider: Elliott Kurtz DO Age/Sex: 88/F Location: [facility] Status: Signed Intake Vital Signs 02/18/23 07:24 Height 4 ft 11 in Intake Visit Reasons: 6 MO FU Allergies Sulfa (Sulfonamide Antibiotics) Allergy (Verified 07/27/23 15:22) Unknown [facility] Medical History Hiatal hernia HTN (hypertension) Hypothyroid Social History Smoking Status: Never smoker HPI HPI Details: ARLIN MURRAY, is a 88 F who presents to the office today for [facility] ED 02.18.23 with rectal bleeding with one episode of emesis and lower abdominal discomfort. Imaging noted hemicolon colitis and discharged with cipro/flagyl per her preference.?Biochemical???CBC (hgb, plt WNL), CMP, LFT without pertinent abnormality.??? CT abd/pel???hepatic steatosis; large hiatal hernia composed of most of gastric fundus; descending and RS colon circumferential wall thickening consist with colitis; dextroscoliosis; lung basilar scarri ng; mild pericardial thickening.??? *BGI established 02.21.23. ED visit was an isolated presentation of symptoms. BM vary between daily and QOD with complete evacuation without straining and soft/formed stool, though reports occasional uncomfortable BM. Decreased appetite r/t lack of appetite, situational depression r/t sick friends. Reports seeing a woman at a health [employer] store who performed musculature testing and reported very sluggish colon. History of complete hysterectomy via vaginally; two vaginal births. ??? OV 07.27.23 Pt reports she is doing well since last visit. BM are normal with no diarrhea. Reports she takes OTC fiber choice, digestive enzymes and tries to eat yogurt. No abdominal pain. HB controlled with once daily Omeprazole. Doesn't have any issues swallowing as long as she chews well. OV 01.26.24 Pt continues taking 20mg Omeprazole. Denies abdominal pain or diarrhea. Does not notice any blood in stools. Has occasional indigestion after eating too much but takes Tums and feels better. Pt has concerns Omeprazole will increase chances of osteoporosis. ROS Const Constitutional: Positive for fatigue Endo Endocrine: Positive for fatigue Exam Const General: cooperative and comfortable Nutritional Appearance: average body habitus and well nourished HENMT Head: normal to inspection Ears: hearing grossly normal bilaterally Nose: external nose normal Face and sinus: normal facial exam Mouth: oral mucosae normal Throat: posterior oropharynx normal Eyes General: appearance normal, both eyes and all related structures Neck Neck: normal visual inspection Chest Chest palpation inspection: normal inspection of the chest and normal palpation of entire chest wall Resp Effort Inspection: normal respiratory effort Auscultation: Bilateral: Clear to Auscultation Cardio Palpation: normal PMI Rate: regular rate Rhythm: regular rhythm GI Inspection: normal to inspection Auscultation: normal bowel sounds Percussion: normal to percussion Palpation: no hepatosplenomegaly Skin General: no rashes or lesions noted Neuro General: patient alert Extrem General: normal to inspection Psych Affect: normal affect Assessment and Plan Assessment and Plan (1) Colitis: Status: Inactive (2) GERD (gastroesophageal reflux disease): Status: Chronic Plan 87-year-old female, presents with her neighbor because of rectal bleeding that began at midnight. She states in the past she has over eaten and has had abdominal discomfort, but it usually goes away.??? She felt ill yesterday, and vomited once a small amount without any blood in her emesis.??? She noted that when she went to the bathroom at around midnight, she may have passed clots but noticed rectal bleeding in the toilet.??? She denies any chest pain or shortness of breath, no lightheadedness or dizziness.??? She did state that in the past she felt weak, but was started on vitamin B.??? She has lower abdominal discomfort and soreness.??? No previous abdominal surgeries.??? She states she does not take blood thinners.??? She presents because of the rectal bleeding and abdominal pain. CT scan: Stable mild increased markings at the lung bases suggestive of basilar scarring.??? Coronary artery calcification. Mild pericardial thickening. There is decreased attenuation of the liver consistent with steatosis. Normal gallbladder and extrahepatic biliary system.??? Normal spleen.??? Normal pancreas. Normal bilateral adrenal glands. Normal (more content not included)... [facility] Absolute lymphocyte countOrd ered By: Goyo Mata on 01-13-2024 Lymphocytes Auto (Unsp spec) [#/Vol] 1.14 10*3/uL 0.83-4.51 [facility] Automated lymphocyte count a s percentage of total leukocytesOrdered By: Goyo Mata on 01-13-2024 Lymphocytes/100 WBC Auto (Unsp spec) 16.0 % 19-41 [facility] BNP,B-Type NATRIURETIC PEPTI Taran 01-13-2024 Natriuretic peptide B (Bld) [Mass/Vol] 56.4 pg/mL Normal 0-100 [facility] Comment on above: Performed By: #### L 503.6620, L100.0100 #### [facility] [address] [place] [address]. [place], [address] Basophil percentageOrdered B y: Goyo Mata on 01-13-2024 Basophils/100 WBC (Bld) 0.8 % 0-1 [facility] Eosinophils/100 WBC (Bld) 7.7 % 0-5 [facility] Hemoglobin (Bld) [Mass/Vol] 13.2 g/dL 12.0-15.0 [facility] Monocytes/100 WBC (Bld) 11.7 % 0-10 [facility] Neutrophils (Bld) [#/Vol] 4.5 10*3/uL 2.0-7.7 [facility] Neutrophils/100 WBC (Bld) 63.5 % 47-70 [facility] WBC (Bld) [#/Vol] 7.1 10*3/uL 4.4-11.0 [facility] CBC W/Diff, Automatedon 01-01 Absolute Lymph 1.14 X10 3/uL Normal 0.83-4.51 [facility] Comment on above: Performed By: #### L 503.6620, L100.0100 #### [facility] [address] [place], [address] Absolute Neut 4.5 X10 3/uL Normal 2.0-7.7 [facility] Comment on above: Performed By: #### L 503.6620, L100.0100 #### [facility] [address] [place], [address] Basophils/100 WBC (Bld) 0.8 % Normal 0-1 [facility] Comment on above: Performed By: #### L 503.6620, L100.0100 #### [facility] [address] [place], [address] Eosinophils/100 WBC (Bld) 7.7 % High 0-5 [facility] Comment on above: Performed By: #### L 503.6620, L100.0100 #### [facility] [address] [place], [address] Erythrocyte distribution width (RBC) [Ratio] 12.9 % Normal 11.6-14.6 [facility] Comment on above: Performed By: #### L 503.6620, L100.0100 #### [facility] [address] [place], [address] Hematocrit (Bld) [Volume fraction] 40.8 % Normal 37-47 [facility] Comment on above: Performed By: #### L 503.6620, L100.0100 #### [facility] [address] [place], [address] Hemoglobin (Bld) [Mass/Vol] 13.2 g/dL Normal 12.0-15.0 [facility] Comment on above: Performed By: #### L 503.6620, L100.0100 #### [facility] [address] [place], [address] IG% 0.300 Normal 0.0-0.9 [facility] Comment on above: Result Comment: IG% - Immature Granulocytes (promyelocytes, myelocytes and metamyelocytes) > 1% indicates that a LEFT SHIFT is Present. Performed By: #### L 503.6620, L100.0100 #### [facility] [address] [place], [address] Lymphocytes/100 WBC (Bld) 16.0 % Low 19-41 [facility] Comment on above: Performed By: #### L 503.20, L100.0100 #### [facility] [address] [place], [address] MCH (RBC) [Entitic mass] 31.2 pg Normal 27.0-32.0 [facility] Comment on above: Performed By: #### L 503.20, L100.0100 #### [facility] [address] [place], [address] MCHC (RBC) [Mass/Vol] 32.4 g/dL Normal 32-36 [facility] Comment on above: Performed By: #### L 503.6620, L100.0100 #### [facility] [address] [place], [address] MCV (RBC) [Entitic vol] 96.5 fL Normal 81-99 [facility] Comment on above: Performed By: #### L 503.6620, L100.0100 #### [facility] [address] [place], [address] Monocytes/100 WBC (Bld) 11.7 % High 0-10 [facility] Comment on above: Performed By: #### L 503.20, L100.0100 #### [facility] [address] [place], [address] Neutrophils/100 WBC (Bld) 63.5 % Normal 47-70 [facility] Comment on above: Performed By: #### L 503.6620, L100.0100 #### [facility] [address] [place], [address] Nucleated RBC (Bld) [#/Vol] 0 10*3/uL Normal 0-5 [facility] Comment on above: Performed By: #### L 503.20, L100.0100 #### [facility] [address] [place], [address] Platelet mean volume (Bld) [Entitic vol] 9.8 fL Normal 6.2-12.0 [facility] Comment on above: Performed By: #### L 503.20, L100.0100 #### [facility] [address] [place], [address] Platelets (Bld) [#/Vol] 264 10*3/uL Normal 150-450 [facility] Comment on above: Performed By: #### L 503.6619, L100.0100 #### [facility] [address] [place], [address] RBC (Bld) [#/Vol] 4.23 10*6/uL Normal 4.2-5.4 [facility] Comment on above: Performed By: #### L 503.20, L100.0100 #### [facility] [address] [place], [address] RDW SD 45.5 fl High 35.1-43.9 [facility] Comment on above: Performed By: #### L 503.20, L100.0100 #### [facility] [address] [place], [place], [address] WBC (Bld) [#/Vol] 7.1 10*3/uL Normal 4.4-11.0 [facility] Comment on above: Performed By: #### L 503.6620, L100.0100 #### [facility] [address] [facility] [place], [address] Chest PA and Lateralon 01-12 Chest PA and Lateral [facility] [address] [place] [address] Chest PA and Lateral MR#: [id number] Acct: [id number] Name: ARLIN MURRAY Rep #: [id number] : 1935 F 88 From: Kashif Reich MD PCP: Dr. Tawanda Muñiz MD Status: REG CLI Study: Chest PA and Lateral Date of Exam: 01/13/24 Exam# [id number] Ordering Dr: Goyo Mata MD [id number] EXAM: XR CHEST, 2 VIEWS CLINICAL INDICATION: Shortness of breath TECHNIQUE: Frontal and lateral views of the chest. COMPARISON: No relevant prior studies available. FINDINGS: LUNGS AND PLEURAL SPACES: There is retrocardiac opacity with an air-fluid level compatible with a hiatal hernia. No pneumothorax. HEART: Unremarkable. Cardiac silhouette not enlarged. MEDIASTINUM: See above. BONES/JOINTS: There is marked kyphosis of the thoracic spine. There is orthopedic cement in thoracic vertebral bodies. No acute fracture. SOFT TISSUES: Unremarkable. RAD/Chest PA and Lateral IMPRESSION: No acute pulmonary abnormality. There is a hiatal hernia present. Electronically Signed: Kashif Reich MD at 20:09 EDT , CC: Dr. Tawanda Muñiz MD; Dr. Goyo Mata MD Banking Representative: Signed [facility] Determination of erythrocyte mean corpuscular volume (MCV)Ordered By: Goyo Mata on 01-13-2024 MCV (RBC) [Entitic vol] 96.5 fL 81-99 [facility] Erythrocyte distribution wid th ratioOrdered By: Goyo Mata on 01-13-2024 Erythrocyte distribution width (RBC) [Ratio] 12.9 % 11.6-14.6 [facility] Erythrocyte distribution wid th standard deviationOrdered By: Goyo Mata on 01-13-2024 Erythrocyte distribution width (RBC) [Entitic vol] 45.5 fL 35.1-43.9 [facility] Hematocrit Auto (Bld) [Volum e fraction]Ordered By: Goyo Mata on 01-13-2024 Hematocrit (Bld) [Volume fraction] 40.8 % 37-47 [facility] Immature granulocytes/100 WB C Auto (Bld)Ordered By: Goyo Mata on 01-13-2024 Immature granulocytes/100 WBC (Bld) 0.300 % 0.0-0.9 [facility] Comment on above: IG% - Immature Granu locytes (promyelocytes, myelocytes and metamyelocytes) > 1% indicates that a LEFT SHIFT is Present. Laboratory - Chemistry and C hemistry - challengeOrdered By: Goyo Mata on 01-13-2024 Natriuretic peptide B (Bld) [Mass/Vol] 56.4 pg/mL 0-100 [facility] - Hematology and Cell countsOrdered By: Goyo Mata on 01-13-2024 MCH (RBC) [Entitic mass] 31.2 pg 27.0-32.0 [facility] MCHC (RBC) [Mass/Vol] 32.4 g/dL 32-36 [facility] Nucleated RBC/100 WBC (Bld) [Ratio] 0 % 0-5 [facility] Platelet mean volume (Bld) [Entitic vol] 9.8 fL 6.2-12.0 [facility] Platelets (Bld) [#/Vol] 264 10*3/uL 150-450 [facility] RBC Auto (Bld) [#/Vol]Ordere d By: Goyo Mata on 01-13-2024 RBC (Bld) [#/Vol] 4.23 10*6/uL 4.2-5.4 [facility] Absolute lymphocyte countOrd ered By: Tawanda Muñiz on 11-22-2023 Lymphocytes Auto (Unsp spec) [#/Vol] 1.05 10*3/uL 0.83-4.51 [facility] Automated lymphocyte count a s percentage of total leukocytesOrdered By: Tawanda Muñiz on 11-22-2023 Lymphocytes/100 WBC Auto (Unsp spec) 14.9 % 19-41 [facility] Basophil percentageOrdered B y: Tawanda Muñiz on 11-22-2023 Basophils/100 WBC (Bld) 0.7 % 0-1 [facility] Bilirubin [Mass/Vol] 0.30 mg/dL 0.20-1.00 [facility] Comment on above: For patients on eltr ombopag therapy, use of Dim[place] TBIL is not recommended. Chloride [Moles/Vol] 106 mmol/L 98-107 [facility] Cholesterol [Mass/Vol] 203 mg/dL <200 [facility] Comment on above: <200 mg/dL Desirable 200-240 mg/dL Borderline >240 mg/dL High Risk Eosinophils/100 WBC (Bld) 7.5 % 0-5 [facility] Glucose [Mass/Vol] 77 mg/dL 74-106 [facility] Hemoglobin (Bld) [Mass/Vol] 13.0 g/dL 12.0-15.0 [facility] Monocytes/100 WBC (Bld) 9.9 % 0-10 [facility] Neutrophils (Bld) [#/Vol] 4.7 10*3/uL 2.0-7.7 [facility] Neutrophils/100 WBC (Bld) 66.7 % 47-70 [facility] Potassium [Moles/Vol] 4.0 mmol/L 3.5-5.1 [facility] Protein [Mass/Vol] 7.0 g/dL 6.4-8.2 [facility] Sodium [Moles/Vol] 140 mmol/L 136-145 [facility] WBC (Bld) [#/Vol] 7.1 10*3/uL 4.4-11.0 [facility] Determination of erythrocyte mean corpuscular volume (MCV)Ordered By: Tawanda Muñiz on 11-22-2023 MCV (RBC) [Entitic vol] 96.7 fL 81-99 [facility] Erythrocyte distribution wid th ratioOrdered By: Tawanda Muñiz on 11-22-2023 Erythrocyte distribution width (RBC) [Ratio] 12.2 % 11.6-14.6 [facility] Erythrocyte distribution wid th standard deviationOrdered By: Tawanda Muñiz on 11-22-2023 Erythrocyte distribution width (RBC) [Entitic vol] 43.7 fL 35.1-43.9 [facility] Hematocrit Auto (Bld) [Volum e fraction]Ordered By: Tawanda Muñiz on 11-22-2023 Hematocrit (Bld) [Volume fraction] 40.6 % 37-47 [facility] Immature granulocytes/100 WB C Auto (Bld)Ordered By: Tawanda Muñiz on 11-22-2023 Immature granulocytes/100 WBC (Bld) 0.300 % 0.0-0.9 [facility] Comment on above: IG% - Immature Granu locytes (promyelocytes, myelocytes and metamyelocytes) > 1% indicates that a LEFT SHIFT is Present. Laboratory - Chemistry and C hemistry - challengeOrdered By: Tawanda Muñiz on 11-22-2023 Albumin/Globulin [Mass ratio] 1.1 {ratio} 0.9-2.4 [facility] ALP [Catalytic activity/Vol] 82 U/L 45-117 [facility] ALT [Catalytic activity/Vol] 21 U/L 13-56 [facility] Cholesterol in HDL [Mass/Vol] 81 mg/dL >40 [facility] Comment on above: The drugs N-Acetylcy steine and Metamizole may falsely depress this assay. Reference Range HDL <40 mg/dL Low HDL Cholesterol HDL >or= 60 mg/dL High HDL Cholesterol CO2 [Moles/Vol] 31.0 mmol/L 21.0-32.0 [facility] Cobalamin (Vitamin B12) [Mass/Vol] 387 pg/mL 211-911 [facility] Globulin (S) [Mass/Vol] 3.3 g/dL 2.2-4.2 [facility] Urea nitrogen/Creatinine [Mass ratio] 12.5 mg/mg 10-20 [facility] - Hematology and Cell countsOrdered By: Tawanda Muñiz on 11-22-2023 MCH (RBC) [Entitic mass] 31.0 pg 27.0-32.0 [facility] MCHC (RBC) [Mass/Vol] 32.0 g/dL 32-36 [facility] Nucleated RBC/100 WBC (Bld) [Ratio] 0 % 0-5 [facility] Platelet mean volume (Bld) [Entitic vol] 10.0 fL 6.2-12.0 [facility] Platelets (Bld) [#/Vol] 235 10*3/uL 150-450 [facility] No Panel InformationOrdered By: Tawanda Muñiz on 11-22-2023 Estimated GFR (MDRD) Amer 55 mL/min >60 [facility] Comment on above: GFR Calc Estimated GFR (MDRD) Non-Af Amer 45 mL/min >60 [facility] Comment on above: Non- GFR Calc Folate 6.40 ng/mL 3.1-55.4 [facility] Vitamin D 25-Hydroxy 36.7 ng/mL [facility] Comment on above: Vitamin D 25(OH) Sta tus Range Deficiency <20 ng/mL (50nmol/L) Insufficiency 20 - 30 ng/mL (50 - 75 nmol/L) Sufficiency 30 - 100 ng/mL (75 - 250 nmol/L) Toxicity >100 ng/mL (>250 nmol/L) RBC Auto (Bld) [#/Vol]Ordere d By: Tawanda Muñiz on 11-22-2023 RBC (Bld) [#/Vol] 4.20 10*6/uL 4.2-5.4 [facility] Serum or plasma calcium sally urement (mass/volume)Ordered By: Tawanda Muñiz on 11-22-2023 Calcium [Mass/Vol] 9.4 mg/dL 8.5-10.1 [facility] Serum or plasma creatinine m easurement (mass/volume)Ordered By: Tawanda Muñiz on 11-22-2023 Creatinine [Mass/Vol] 1.20 mg/dL 0.55-1.02 [facility] Comment on above: The validity of the calculated GFR & GFRAA in patients over 70 years has not been determined. Clinical correlation is essential. Serum or plasma thyroid stim ulating hormone (TSH) measurement (units/volume)Ordered By: Tawanda Muñiz on 11-22-2023 TSH Qn 1.60 uIU/mL 0.358-3.74 [facility] Serum or plasma urea nitroge n measurement (mass/volume)Ordered By: Tawanda Muñiz on 11-22-2023 Urea nitrogen [Mass/Vol] 15 mg/dL 7-18 [facility] Thin prep Papanicolaou smear with manual screeningOrdered By: Tawanda Muñiz on 11-22-2023 Thin prep Papanicolaou smear with manual screening 3.7 g/dL 3.2-5.0 [facility] Thin prep Papanicolaou smear with manual screening 15 U/L 15-37 [facility] Thin prep Papanicolaou smear with manual screening 3 5-15 [facility] Absolute lymphocyte countOrd ered By: Dr. Muñiz on 11-08-2022 Lymphocytes Auto (Unsp spec) [#/Vol] 0.84 10*3/uL 0.83-4.51 [facility] Basophil percentageOrdered B y: Dr. Muñiz on 11-08-2022 Basophils/100 WBC (Bld) 0.9 % 0-1 [facility] Bilirubin [Mass/Vol] 0.30 mg/dL 0.20-1.00 [facility] Comment on above: For patients on eltr ombopag therapy, use of [place] TBIL is not recommended. Chloride [Moles/Vol] 103 mmol/L 98-107 [facility] Eosinophils/100 WBC (Bld) 5.2 % 0-5 [facility] Glucose [Mass/Vol] 86 mg/dL 74-106 [facility] Neutrophils (Bld) [#/Vol] 3.6 10*3/uL 2.0-7.7 [facility] Neutrophils/100 WBC (Bld) 67.7 % 47-70 [facility] Potassium [Moles/Vol] 3.9 mmol/L 3.5-5.1 [facility] Protein [Mass/Vol] 7.1 g/dL 6.4-8.2 [facility] Sodium [Moles/Vol] 137 mmol/L 136-145 [facility] WBC (Bld) [#/Vol] 5.4 10*3/uL 4.4-11.0 [facility] Blood erythrocytes count (nu mber/volume)Ordered By: Dr. Muñiz on 11-08-2022 RBC (Bld) [#/Vol] 4.17 10*6/uL 4.2-5.4 [facility] Blood hemoglobin measurement (mass/volume)Ordered By: Dr. Muñiz on 11-08-2022 Hemoglobin (Bld) [Mass/Vol] 13.0 g/dL 12.0-15.0 [facility] Blood lymphocytes/100 leukoc ytesOrdered By: Dr. Muñiz on 11-08-2022 Lymphocytes/100 WBC (Bld) 15.6 % 19-41 [facility] Blood monocytes/100 leukocyt esOrdered By: Dr. Muñiz on 11-08-2022 Monocytes/100 WBC (Bld) 10.4 % 0-10 [facility] Blood platelet mean volumeOr dered By: Dr. Muñiz on 11-08-2022 Platelet mean volume (Bld) [Entitic vol] 10.1 fL 6.2-12.0 [facility] Determination of erythrocyte mean corpuscular volume (MCV)Ordered By: Dr. Muñiz on 11-08-2022 MCV (RBC) [Entitic vol] 95.7 fL 81-99 [facility] Hematocrit Auto (Bld) [Volum e fraction]Ordered By: Dr. Muñiz on 11-08-2022 Hematocrit (Bld) [Volume fraction] 39.9 % 37-47 [facility] - Chemistry and C hemistry - challengeOrdered By: Dr. Muñiz on 11-08-2022 ALP [Catalytic activity/Vol] 77 U/L 45-117 [facility] ALT [Catalytic activity/Vol] 20 U/L 13-56 [facility] CO2 [Moles/Vol] 27.0 mmol/L 21.0-32.0 [facility] Globulin (S) [Mass/Vol] 3.4 g/dL 2.2-4.2 [facility] Urea nitrogen/Creatinine [Mass ratio] 25.4 mg/mg 10-20 [facility] - Hematology and Cell countsOrdered By: Dr. Muñiz on 11-08-2022 Erythrocyte distribution width (RBC) [Entitic vol] 44.4 fL 35.1-43.9 [facility] Erythrocyte distribution width (RBC) [Ratio] 12.6 % 11.6-14.6 [facility] Immature granulocytes/100 WBC (Bld) 0.200 % 0.0-0.9 [facility] Comment on above: IG% - Immature Granu locytes (promyelocytes, myelocytes and metamyelocytes) > 1% indicates that a LEFT SHIFT is Present. MCH (RBC) [Entitic mass] 31.2 pg 27.0-32.0 [facility] Nucleated RBC/100 WBC (Bld) [Ratio] 0 % 0-5 [facility] MCHC Auto (RBC) [Mass/Vol]Or dered By: Dr. Muñiz on 11-08-2022 MCHC (RBC) [Mass/Vol] 32.6 g/dL 32-36 [facility] No Panel InformationOrdered By: Dr. Muñiz on 11-08-2022 Estimated GFR (MDRD) Amer 69 mL/min >60 [facility] Comment on above: GFR Calc Estimated GFR (MDRD) Non-Af Amer 57 mL/min >60 [facility] Comment on above: Non- GFR Calc Thyroid Stimulating Hormone (TSH) 1.37 uIU/mL 0.358-3.74 [facility] Urine Microalbumin/Creati nine Ratio 30.8 mg/g CRE <30 [facility] Platelets bldOrdered By: Dr. Muñiz on 11-08-2022 Platelets (Bld) [#/Vol] 246 10*3/uL 150-450 [facility] Serum or plasma albumin sally urement (mass/volume)Ordered By: Dr. Muñiz on 11-08-2022 Albumin [Mass/Vol] 3.7 g/dL 3.2-5.0 [facility] Serum or plasma albumin/glob ulin mass ratioOrdered By: Dr. Muñiz on 11-08-2022 Albumin/Globulin [Mass ratio] 1.1 {ratio} 0.9-2.4 [facility] Serum or plasma calcium sally urement (mass/volume)Ordered By: Dr. Muñiz on 11-08-2022 Calcium [Mass/Vol] 9.9 mg/dL 8.5-10.1 [facility] Serum or plasma creatinine m easurement (mass/volume)Ordered By: Dr. Muñiz on 11-08-2022 Creatinine [Mass/Vol] 0.98 mg/dL 0.55-1.02 [facility] Comment on above: The validity of the calculated GFR & GFRAA in patients over 70 years has not been determined. Clinical correlation is essential. Serum or plasma urea nitroge n measurement (mass/volume)Ordered By: Dr. Muñiz on 11-08-2022 Urea nitrogen [Mass/Vol] 25 mg/dL 7-18 [facility] Thin prep Papanicolaou smear with manual screeningOrdered By: Dr. Muñiz on 11-08-2022 Thin prep Papanicolaou smear with manual screening 13 U/L 15-37 [facility] Thin prep Papanicolaou smear with manual screening 7 5-15 [facility] Thin prep Papanicolaou smear with manual screening 22.2 mg/L NO RANGE EST. [facility] Urine creatinine measurement (mass/volume)Ordered By: Dr. Muñiz on 11-08-2022 Creatinine (U) [Mass/Vol] 72.10 mg/dL NO RANGE EST. [facility] CNOVon 09-01-2018 CNOV Office Visit (CAWSTR) ARLIN WISEMAN SE ([id number]) 1935 [facility] Time Provider Blspzhnaxv67/30/18 10:30 AM EMERALD GARZAWSTR During your visit today, we recorded the following information about you: Pulse Blood pressure Weight Height 85/minute 146/89 50.2 kg 1.499 Deanna Garza MD 09/01/2018 1:10 PM SignedPERTINENT CARDIAC HISTORYHTNDOEChest pain - normal cathHL - declines statinCarotid disease - mildADHERENCE TO GUIDELINESACE-I or ARB for HF with prior LVEF<40 (NQF 0081) - N/AASA or Plavix for ASHD (NQF 0067) - N/ABeta palmer for ASHD with prior VT or prior LVEF<40 (NQF 0070) - N/ABeta palmer for HF with prior LVEF<40 (NQF 0083) - N/AACE-I or ARB for ASHD with DM or prior LVEF<40 (NQ 0066) - N/AStatin therapy for ASHD or FHL or DM - declinesBMI documented and plan if >25 (NQ 0421) - lifestyle recommendation formTobacco use screening and referral (NQ 0028) - lifestyle recommendation formRecommendation for whole food, plant based diet - lifestyle recommendation formCLINICAL IMPRESSION/PLAN:Arlin Murray is doing well. Blood pressure is borderline elevated today. Shewas advised to take vital signs daily for the next week and contact me.Lisinopril dose can be adjusted as needed.I reviewed her labs with her. LDL is a little high. She would like to makedietary changes first. She has eliminated most of the dairy and we discussedthe benefit of whole food plant based nutrition.I suggest that she wear support stockings for treatment of her venousvaricosities.I've recommended that she be seen in 12 months or as needed.Written and verbal health teaching given to patient, patient verbalizesunderstanding and agrees with treatment plan.DIAGNOSIS FOR VISIT:Chest painHypertensionHISTORY OF PRESENT ILLNESSArlin Murrya returns for follow-up of her hypertension and chest painsyndrome.She reports stable exercise tolerance. She has been exercising. She denieschest pain. She's had no orthopnea, edema, syncope, palpitations, TIAs,amaurosis or claudicationShe reports blood pressures at home have been in the 130 systolic range.ALLERGIES:ALLERGIESAllerg en Reactions- Dairy [Homeopathic * Cough- Fosamax [Alendronat* Patient does not want bisphosphonates for treatment or prevention ofosteoporosis (articles she has read and dentist told her not to take)- Augmentin [Amoxicil* Diarrhea- Sulfa (Sulfonamide * ItchingCURRENT OUTPATIENT MEDICATIONS:lisinopril (ZESTRIL, PRINIVIL) 10 mg tablet Take 1 tablet by mouth once daily.Compression Knee Highs KNEE HIGH ZIPPERED COMPRESSION STOCKINGS 20-30 MM .DX: EDEMAfluticasone-salmeterol (ADVAIR DISKUS) 250-50 mcg/dose dsdv Inhale 1 Puff asinstructed twice daily. RINSE AND GARGLE MOUTH WITH WATER AFTER EACH USE.CALCIUM CARBONATE/VITAMIN D3 (VITAMIN D-3 ORAL) Take by mouth.omeprazole (PRILOSEC) 20 mg capsule Take 1 capsule by mouth once daily.levothyroxine (SYNTHROID) 50 mcg tablet Take 1 tablet by mouth once daily.CYANOCOBALAMIN, VITAMIN B-12, (VITAMIN B-12 ORAL) Take by mouth once daily.DOCOSAHEXANOIC ACID/EPA (FISH OIL ORAL) Take by mouth once daily.albuterol HFA (VENTOLIN HFA) 90 mcg/actuation inhaler Inhale 2 Puffs asinstructed every 4 hours as needed for Wheezing/Shortness of Breath.pyridoxine (VITAMIN B-6) 100 mg tablet Take 1 tablet by mouth once daily.COQ10, UBIQUINOL, ORAL Take by mouth.Bilberry Cap Take by mouth.ascorbic acid (VITAMIN C) 500 mg ORAL tablet Take 1 tablet by mouth twicedaily.vit c/dl-e ac/lut/copper/znox(PRESERVISION 226 MG-200 UNIT-5 MG CAP) Takeone(1) tablet two(2) times daily.COMPOUNDED PRESCRIPTION tumeric ?mg two (2) tablets dailyGLUCOSAMINE CHONDROITIN MAXSTR 500 MG-400 MG CAP take two a dayPHYSICAL EXAMINATION:VITAL SIGNS: BP 146/89 Pulse 85 Ht 4' 11 (1.50m) Wt 110 lb 9.6 oz(50.2kg) BMI 22.33 kg/(m2).Chest: Clear to auscultation. Trachea is midline. Air entry is equal.Cardiac: Regular rhythm. S1 and S2 are normal. PMI is nondisplaced. Thereare no murmurs, rubs or gallops. Carotids are brisk With soft left carotidbruits. JVP is less than 10 cm. Abdomen: Soft and nontender. There are nopulsatile masses or bruits. No liver enlargement. Bowel sounds are active.Extremities: Trace edema. Venous varicosities are noted. There is no calftenderness. Pulses are intact and symmetrical.Recent labs were reviewed. Renal function is normal. TSH was normal. LDL mzr859.Recent carotid Doppler shows mild left carotid disease.EKG shows sinus rhythm and is within normal limits. There is no significantchange.Electronicall y Signed:Emerald Garza MDNovember 2017 11:18 [facility]: Beth Mack MD 09/01/2018 11:18 AM SignedLIFESTYLE CHANGEA healthy lifestyle is the most important component of your overall treatmentplan. Please give serious thought to the following areas and commit to makinglong term changes.EAT A WHOLE FOOD, PLANT BASED DIETThe nutrition your body gets is more important than the medicine you take.What matters most is the overall way you eat. We encourage you to minimize theuse of animal products (which include dairy and all meats except fatty fish)and use whole, unprocessed plant foods to provide your protein, vitamins andother nutrients. We have a lot of information to share with you on this topic.This is not a diet. It is a way of life that you will keep with you.EXERCISE REGULARLYIt is not important to spend hours in the gym, lifting weights and perspiringheavily. A total of 2-3 hours per week of aerobic (causing you to bemoderately short of breath) exercise is sufficient to improve your health.Talk to us before you begin a new exercise program, if you have heart diseaseor experience shortness of breath or chest pain.REDUCE STRESSChronic emotional and physical stress leads to disease. Ways of reducingstress include meditation, visualization, prayer, yoga and other forms ofrelaxation therapy. Consistency is the anand. Find a technique that works foryou and do it every day.CULTIVATE RELATIONSHIPSLoneliness and isolation have a major negative impact on health. Seek outothers who can love, care for and nurture you. Avoid hurtful relationships.MAINTAIN IDEAL BODY WEIGHTThe best way to do this is to do all the things above. Our bodies naturallyfind the right weight if we keep moving and feed ourselves the right food. Ifyour BMI is greater than 25, we strongly recommend a referral to a weightmanagement program. Please speak to us or your family physician aboutavailable programs.AVOID NICOTINE IN ALL FORMSThis includes all tobacco products, whether chewed, smoked, vaped, or rubbed onthe skin. Smoking cessation programs, which can make use of tobaccosubstitutes, medications to suppress cravings and behavior management, areavailable. Please contact your family physician about programs in your area.Bee Iraheta RN 09/01/2018 1:29 PM SignedOffice note and ekg faxed to Dr. Muñiz at [phone] with fax confirmationBee Barnes MA 09/01/2018 3:26 PM SignedAddended by: ALLISON BARNES MA on: 09/01/2018 03:26 PM Modules accepted: Soto Garza MD 09/01/2018 3:58 PM SignedAddended by: EMERALD GARZA MD on: 09/01/2018 03:58 PM Modules accepted: OrdersReferring Provider: EMERALD GARZA [[id number]]Allergies As of Date: 09/01/2018 Noted Allergy ReactionDAIRY (HOMEOPATHIC PRODUCTS) 07/31/2007 3 - CoughFOSAMAX (ALENDRONATE SODIUM) 08/03/2008 Comments: Patient does not want bisphosphonates for treatment or prevention of osteoporosis (articles she has read and dentist told her not to take)AUGMENTIN (AMOXICILLIN-POT CLAVUL*03/06/2008 6 - DiarrheaSULFA (SULFONAMIDE ANTIBIOTICS) 07/21/2005 9 - ItchingDate Reviewed: 09/01/2018Reviewed by: Allison Barnes MA - Fully AssessedReason for Visit: Established Patient [175]Primary Visit Diagnosis:Essential hypertension [I10]Order(s):ECG COMPLETE W INTERPRETATION [ECG01] Order #: [id number] FUTUREPrescriptions as of 09/01/2018 Sig: LISINOPRIL 10 MG TABLET Take 1 tablet by mouth once d* COMPOUNDED PRESCRIPTION KNEE HIGH ZIPPERED COMPRESSI* FLUTICASONE 250 MCG-SALMETERO* Inhale 1 Puff as instructed t* VITAMIN D-3 ORAL Take by mouth. OMEPRAZOLE 20 MG CAPSULE,YARITZA* Take 1 capsule by mouth once * LEVOTHYROXINE 50 MCG TABLET Take 1 tablet by mouth once d* VITAMIN B-12 ORAL Take by mouth once daily. FISH OIL ORAL Take by mouth once daily. ALBUTEROL SULFATE HFA 90 MCG/* Inhale 2 Puffs as instructed * PYRIDOXINE (VITAMIN B6) 100 M* Take 1 tablet by mouth once d* * COQ10 (UBIQUINOL) ORAL Take by mouth. * BILBERRY CAPSULE Take by mouth. * ASCORBIC ACID (VITAMIN C) 500* Take 1 tablet by mouth twice * * PRESERVISION LUTEIN 226 MG-20* Take one(1) tablet two(2) ridge* * COMPOUNDED PRESCRIPTION tumeric ?mg two (2) tablets d* * GLUCOSAMINE CHONDROITIN MAXIM* take two a dayProblem List As Of Date 09/01/2018 Noted Resolved Asthma [J45.909] More... Esophageal reflux [K21.9] INVALID FOR* More... Hypothyroidism [E03.9] More... Vitamin D deficiency [E55.9] INVALID FOR*08/23/2017 More... Macular degeneration (senile) of retina, unspec* More... Greater trochanteric bursitis [M76.899] INVALID FOR*05/25/2013 More... Osteoporosis [M81.0] INVALID FOR* More... More... Esophagitis, unspecified [K20.9] INVALID FOR*09/05/2014 Hypertension goal BP (blood pressure) < 150/90 *INVALID FOR* More... 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 Vitamin D insufficiency [E55.9] Encounter for screening for malignant neoplasm *INVALID FOR* More... 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 Other instructions from your clinician: LIFESTYLE CHANGE A healthy lifestyle is the most important component of your overall treatment plan. Please give serious thought to the following areas and commit to making jail changes. EAT A WHOLE FOOD, PLANT BASED DIET The nutrition your body gets is more important than the medicine you take. What matters most is the overall way you eat. We encourage you to minimize the use of animal products (which include dairy and all meats except fatty fish) and use whole, unprocessed plant foods to provide your protein, vitamins and other nutrients. We have a lot of information to share with you on this topic. This is not a diet. It is a way of life that you will keep with you. EXERCISE REGULARLY It is not important to spend hours in the gym, lifting weights and perspiring heavily. A total of 2-3 hours per week of aerobic (causing you to be moderately short of breath) exercise is sufficient to improve your health. Talk to us before you begin a new exercise program, if you have heart disease or experience shortness of breath or chest pain. REDUCE STRESS Chronic emotional and physical stress leads to disease. Ways of reducing stress include meditation, visualization, prayer, yoga and other forms of relaxation therapy. Consistency is the anand. Find a technique that works for you and do it every day. CULTIVATE RELATIONSHIPS Loneliness and isolation have a major negative impact on health. Seek out others who can love, care for and nurture you. Avoid hurtful relationships. MAINTAIN IDEAL BODY WEIGHT The best way to do this is to do all the things above. Our bodies naturally find the right weight if we keep moving and feed ourselves the right food. If your BMI is greater than 25, we strongly recommend a referral to a weight management program. Please speak to us or your family physician about available programs. AVOID NICOTINE IN ALL FORMS This includes all tobacco products, whether chewed, smoked, vaped, or rubbed on the skin. Smoking cessation programs, which can make use of tobacco substitutes, medications to suppress cravings and behavior management, are available. Please contact your family physician about programs in your area.Visit Notes:>> Bee Iraheta RN Fri Sep 01, 2018 1:29 PM Status: SignedOffice note and ekg faxed to Dr. Muñiz at [phone] with faxconfirmaDonna Iraheta RNFollow-up and Disposition History RecordedEncounter Number: [id number] Status:Closed by EMERALD GARZA MD on 09/01/18 Normal [facility] EKG1on 09-01-2018 Protein mass conc NAME : ARLIN MURRAY PID : [id number] : 1935 Gender : FemaleRace : CaucasianORD : Procedure Date : Sep 01 2018 11:43:45Edit Date : Sep 02 2018 08:02:06 Diagnosis:NORMAL SINUS RHYTHMNORMAL ECGConfirmed by EMERALD GARZA MD ([id number]) on 09/02/2018 8:02:01 AM Ventricular Rate : 74 BPMAtrial Rate : 74 BPMP-R Interval : 136 msQRS Duration : 78 msQ-T Interval : 374 msQTC Calculation(Bezet) : 415 msP [place] : 37 degreesR Marquette : -12 degreesT [place] : 5 degrees Test Reason : Location : 136 : [place] Overread By : GREG GILBERT,KENNETHEdited By : GREG GILBERT,RICHINETHReferred By : GREG,Acquired by : Naldo FAM [facility] PROGRESSon 09-01-2018 Protein mass conc HNO ID: [id number] thor: Emerald Lepe: (none)Author Type: PhysicianType: Progress NotesFiled: 09/01/2018 1:10 PMNote Text:PERTINENT CARDIAC HISTORYHTNDOEChest pain - normal cathHL - declines statinCarotid disease - mildADHERENCE TO GUIDELINESACE-I or ARB for HF with prior LVEF<40 (NQF 0081) - N/AASA or Plavix for ASHD (NQF 0067) - N/ABeta palmer for ASHD with prior VT or prior LVEF<40 (NQF 0070) - N/ABeta palmer for HF with prior LVEF<40 (NQF 0083) - N/AACE-I or ARB for ASHD with DM or prior LVEF<40 (NQF 0066) - N/AStatin therapy for ASHD or FHL or DM - declinesBMI documented and plan if >25 (NQF 0421) - lifestyle recommendation formTobacco use screening and referral (NQF 0028) - lifestyle recommendationformRecommendatio n for whole food, plant based diet - lifestyle recommendationformCLINICAL IMPRESSION/PLAN:Arlin Murray is doing well. Blood pressure is borderline elevatedtoday. She was advised to take vital signs daily for the next week andcontact me. Lisinopril dose can be adjusted as needed.I reviewed her labs with her. LDL is a little high. She would like to makedietary changes first. She has eliminated most of the dairy and wediscussed the benefit of whole food plant based nutrition.I suggest that she wear support stockings for treatment of her venousvaricosities.I've recommended that she be seen in 12 months or as needed.Written and verbal health teaching given to patient, patient verbalizesunderstanding and agrees with treatment plan.DIAGNOSIS FOR VISIT:Chest painHypertensionHISTORY OF PRESENT ILLNESSIrene L Trevor returns for follow-up of her hypertension and chest painsyndrome.She reports stable exercise tolerance. She has been exercising. She denieschest pain. She's had no orthopnea, edema, syncope, palpitations, TIAs,amaurosis or claudicationShe reports blood pressures at home have been in the 130 systolic range.ALLERGIES:ALLERGIESAllerg en Reactions- Dairy [Homeopathic * Cough- Fosamax [Alendronat* Patient does not want bisphosphonates for treatment or prevention ofosteoporosis (articles she has read and dentist told her not to take)- Augmentin [Amoxicil* Diarrhea- Sulfa (Sulfonamide * ItchingCURRENT OUTPATIENT MEDICATIONS:lisinopril (ZESTRIL, PRINIVIL) 10 mg tablet Take 1 tablet by mouth oncedaily.Compression Knee Highs KNEE HIGH ZIPPERED COMPRESSION STOCKINGS 20-30 MM. DX: EDEMAfluticasone-salmeterol (ADVAIR DISKUS) 250-50 mcg/dose dsdv Inhale 1 Puffas instructed twice daily. RINSE AND GARGLE MOUTH WITH WATER AFTER EACHUSE.CALCIUM CARBONATE/VITAMIN D3 (VITAMIN D-3 ORAL) Take by mouth.omeprazole (PRILOSEC) 20 mg capsule Take 1 capsule by mouth once daily.levothyroxine (SYNTHROID) 50 mcg tablet Take 1 tablet by mouth once daily.CYANOCOBALAMIN, VITAMIN B-12, (VITAMIN B-12 ORAL) Take by mouth oncedaily.DOCOSAHEXANOIC ACID/EPA (FISH OIL ORAL) Take by mouth once daily.albuterol HFA (VENTOLIN HFA) 90 mcg/actuation inhaler Inhale 2 Puffs asinstructed every 4 hours as needed for Wheezing/Shortness of Breath.pyridoxine (VITAMIN B-6) 100 mg tablet Take 1 tablet by mouth once daily.COQ10, UBIQUINOL, ORAL Take by mouth.Bilberry Cap Take by mouth.ascorbic acid (VITAMIN C) 500 mg ORAL tablet Take 1 tablet by mouth twicedaily.vit c/dl-e ac/lut/copper/znox(PRESERVISION 226 MG-200 UNIT-5 MG CAP) Takeone(1) tablet two(2) times daily.COMPOUNDED PRESCRIPTION tumeric ?mg two (2) tablets dailyGLUCOSAMINE CHONDROITIN MAXSTR 500 MG-400 MG CAP take two a dayPHYSICAL EXAMINATION:VITAL SIGNS: BP 146/89 Pulse 85 Ht 4' 11 (1.50m) Wt 110 lb 9.6 oz(50.2kg) BMI 22.33 kg/(m2).Chest: Clear to auscultation. Trachea is midline. Air entry is equal.Cardiac: Regular rhythm. S1 and S2 are normal. PMI is nondisplaced.There are no murmurs, rubs or gallops. Carotids are brisk With soft leftcarotid bruits. JVP is less than 10 cm. Abdomen: Soft and nontender.There are no pulsatile masses or bruits. No liver enlargement. Bowelsounds are active. Extremities: Trace edema. Venous varicosities arenoted. There is no calf tenderness. Pulses are intact and symmetrical.Recent labs were reviewed. Renal function is normal. TSH was normal. LDLwas 116.Recent carotid Doppler shows mild left carotid disease.EKG shows sinus rhythm and is within normal limits. There is nosignificant change.Electronically Signed:Emerald Garza MDNov2017 11:18 [facility]: Tawanda Muñiz MD Normal [facility] CNOVon 12-01-2017 CNOV Office Visit (FAMPWS) ARLIN WISEMAN SE ([id number]) 1935 FDate Time Provider Department12/01/17 11:20 AM YAMILET LANIER) FAMPWS During your visit today, we recorded the following information about you: Pulse Respiration Blood pressure 96/minute 24/minute 130/78Chdanyatopher Rubén Lanier MD 12/01/2017 12:03 PM SignedChief ComplaintPatient presents with:Edema: swelling in feetHPIIeleuterio Murray is a 82 year old female who presents here today for AboveComplaints..C/o swelling in feet and LE for the last week. Notes she had eaten out lastweek and food may have been more salty, but swelling has persisted since thattime. Has not been treating symptoms at home with anything, though knows sheshould be keeping legs elevated. 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 Wu--no DJD- Hematuria 01/27/2015- Hiatal hernia 11/02/2011 Moderate size- Hypertension- Hypothyroidism- Macular degeneration (senile) of retina, unspecified Beginning of ANDquot;dry typeANDquot; in right; had ANDquot;wet typeANDquot;in left- Osteoporosis- Regional enteritis of unspecified site- Retinal tear- Snoring- Vitamin D insufficiencyPrevious Surgical HistoryPAST SURGICAL HISTORYProcedure Laterality Date- COLONOSCOP W/ OR W/O BRSH SPEC 01/17/2007 Colonoscopy- EGD W/O OR W/BRUSH/WASH 11/16/2011 EGD- EGD W/O OR W/BRUSH/WASH 11/01/13 EGD- EGD W/O OR W/BRUSH/WASH 10/16/15 EGD- PAST SURGICAL HISTORY OF retinal tear repair- HI ANESTH,RADICAL HYSTERECTOMY- REMV 2ND CATARACT,CORN-SCLER SECTN Cataract removalFamily HistoryFAMILY HISTORYProblem Relation Age of Onset- ovarian cancer [OTHER] Mother- Stroke Father- Heart Brother Bypass surgery- Diabetes SisterPatient AllergiesALLERGIESAllergen Reactions- Dairy [Homeopathic * Cough- Fosamax [Alendronat* Patient does not want bisphosphonates for treatment or prevention ofosteoporosis (articles she has read and dentist told her not to take)- Augmentin [Amoxicil* Diarrhea- Sulfa (Sulfonamide * ItchingCurrent MedicationsCurrent Outpatient Prescriptions on File Prior to Visit:fluticasone-salmeterol (ADVAIR DISKUS) 250-50 mcg/dose dsdv Inhale 1 Puff asinstructed twice daily. RINSE AND GARGLE MOUTH WITH WATER AFTER EACH USE.CALCIUM CARBONATE/VITAMIN D3 (VITAMIN D-3 ORAL) Take by mouth.omeprazole (PRILOSEC) 20 mg capsule Take 1 capsule by mouth once daily.levothyroxine (SYNTHROID) 50 mcg tablet Take 1 tablet by mouth once daily.CYANOCOBALAMIN, VITAMIN B-12, (VITAMIN B-12 ORAL) Take by mouth once daily.DOCOSAHEXANOIC ACID/EPA (FISH OIL ORAL) Take by mouth once daily.lisinopril (ZESTRIL, PRINIVIL) 10 mg tablet Take 1 tablet by mouth once daily.albuterol HFA (VENTOLIN HFA) 90 mcg/actuation inhaler Inhale 2 Puffs asinstructed every 4 hours as needed for Wheezing/Shortness of Breath.pyridoxine (VITAMIN B-6) 100 mg tablet Take 1 tablet by mouth once daily.COQ10, UBIQUINOL, ORAL Take by mouth.Bilberry Cap Take by mouth.ascorbic acid (VITAMIN C) 500 mg ORAL tablet Take 1 tablet by mouth twicedaily.vit c/dl-e ac/lut/copper/znox(PRESERVISION 226 MG-200 UNIT-5 MG CAP) Takeone(1) tablet two(2) times daily.COMPOUNDED PRESCRIPTION tumeric ?mg two (2) tablets dailyGLUCOSAMINE CHONDROITIN MAXSTR 500 MG-400 MG CAP take two a dayNo current facility-administered medications on file prior to visit.Social HistorySocial History Marital status: Spouse name: Don Years of education: Number of children: 2Social History Main Topics Smoking status: Never Smoker Smokeless status: Never Used Alcohol use: No Drug use: NoReview of SymptomsREVIEW OF SYSTEMSGENERAL: No weight loss, malaise or feversRESPIRATORY: Negative for cough, hemoptysis, wheezing, COPD, dyspnea orshortness of breathCARDIOVASCULAR: Negative for chest pain, leg swelling, hypertension, CHF orpalpitationsGI: No nausea, vomiting, or diarrheaSKIN: Negative for lesions, rash, and itchingEXAM:BP 130/78 Pulse 96 Resp 24 SpO2 93%General Appearance: Well appearing, alert, in no acute distress, well-hydrated,well nourished..Skin: Skin color, texture, turgor normal, no suspicious rashes or lesions.Lungs: Lungs clear to auscultation. No wheezing, rhonchi, rales.Heart: RRR without murmur, gallop, or rubs. No ectopy.Extremities: Edema: 2+ edema on left LE compared to 1+ on right, from dorsumof foot to knee bilaterally with spider veins worse on left than right. Pain onpalpation of left calf.Health Maintenance ListTETANUS due on 03/04/2018DIABETES SCREEN due on 08/23/2020BONE DENSITY CompletedADULT PREVNAR-13 CompletedINFLUENZA CompletedPNEUMOVAX AGE 65 AND OVER WITH 5YR LOOKBACK CompletedData reviewedComponent Latest Ref Rng ANDamp; Units 08/23/2017Protein, Total 6.3 - 8.0 g/dL 7.4Albumin 3.9 - 4.9 g/dL 4.6Calcium 8.5 - 10.2 mg/dL 9.6Bilirubin, Total 0.2 - 1.3 mg/dL 0.2Alkaline Phosphatase 32 - 117 U/L 79AST 13 - 35 U/L 23Glucose 74 - 99 mg/dL 126 (H)BUN 7 - 21 mg/dL 17Creatinine 0.58 - 0.96 mg/dL 0.84Sodium 136 - 144 mmol/L 142Potassium 3.7 - 5.1 mmol/L 3.8Chloride 97 - 105 mmol/L 101CO2 22 - 30 mmol/L 27Anion Gap 9 - 18 mmol/L 14ALT 7 - 38 U/L 26eGFR- ANDgt;60eGFR-All Other Races . ANDgt;60WBC 3.70 - 11.00 k/uL 5.89RBC 3.90 - 5.20 m/uL 4.45Hemoglobin 11.5 - 15.5 g/dL 14.0Hematocrit 36.0 - 46.0 % 43.9MCV 80.0 - 100.0 fL 98.7MCH 26.0 - 34.0 pG 31.5MCHC 30.5 - 36.0 g/dL 31.9RDW-CV 11.5 - 15.0 % 12.9Platelet Count 150 - 400 k/uL 247MPV 9.0 - 12.7 fL 10.8Absolute nRBC ANDlt;0.01 k/uL ANDlt;0.01Hemoglobin A1C 4.3 - 5.6 % 5.6Estimated Average Glucose mg/dL 114TSH 0.400 - 5.500 uU/mL 1.350Vitamin D 25 Hydroxy 31.0 - 80.0 ng/mL 40.1ASSESSMENT/PLAN:1. Lower extremity edema - ICD9: 782.3, ICD10: R60.0 (primary diagnosis)Suspect 2/2 venous insufficiency. Will obtain venous duplex to rule out DVT dueto calf pain and new swelling, suspicion is low. Advised compression stockingsas ordered, keeping legs elevated, low sodium diet. Refusing further workupwith echo and renal function studies today.- COMPOUNDED PRESCRIPTION2. Spider veins of both lower extremities - ICD9: 454.9, ICD10: I83.93See above.- COMPOUNDED PRESCRIPTIONChristopher JETT Yusufeferrlilli Provider: SELF [[id number]]Allergies As of Date: 12/01/2017 Noted Allergy ReactionDAIRY (HOMEOPATHIC PRODUCTS) 07/31/2007 3 - CoughFOSAMAX (ALENDRONATE SODIUM) 08/03/2008 Comments: Patient does not want bisphosphonates for treatment or prevention of osteoporosis (articles she has read and dentist told her not to take)AUGMENTIN (AMOXICILLIN-POT CLAVUL*03/06/2008 6 - DiarrheaSULFA (SULFONAMIDE ANTIBIOTICS) 07/21/2005 9 - ItchingDate Reviewed: 12/01/2017Reviewed by: Candice Gutierrez LPN - Fully AssessedReason for Visit: Edema [39] Cmt: swelling in feetReason For Visit History RecordedPrimary Visit Diagnosis:Lower extremity edema [R60.0] Other Visit Diagnosis:Spider veins of both lower extremities [I83.93]Order(s):Compression Knee HighsKNEE HIGH ZIPPERED COMPRESSION STOCKINGS 20-30 MM . DX: EDEMADisp: 1 DeviceRfl: 2 US LEG VEIN DVT UNL VAS LAB [[id number]] Order #: [id number] FUTUREPrescriptions as of 12/01/2017 Sig: FLUTICASONE 250 MCG-SALMETERO* Inhale 1 Puff as instructed t* VITAMIN D-3 ORAL Take by mouth. OMEPRAZOLE 20 MG CAPSULE,YARITZA* Take 1 capsule by mouth once * LEVOTHYROXINE 50 MCG TABLET Take 1 tablet by mouth once d* VITAMIN B-12 ORAL Take by mouth once daily. FISH OIL ORAL Take by mouth once daily. LISINOPRIL 10 MG TABLET Take 1 tablet by mouth once d* ALBUTEROL SULFATE HFA 90 MCG/* Inhale 2 Puffs as instructed * PYRIDOXINE (VITAMIN B6) 100 M* Take 1 tablet by mouth once d* * COQ10 (UBIQUINOL) ORAL Take by mouth. * BILBERRY CAPSULE Take by mouth. * ASCORBIC ACID (VITAMIN C) 500* Take 1 tablet by mouth twice * * PRESERVISION LUTEIN 226 MG-20* Take one(1) tablet two(2) ridge* * COMPOUNDED PRESCRIPTION tumeric ?mg two (2) tablets d* * GLUCOSAMINE CHONDROITIN MAXIM* take two a day COMPOUNDED PRESCRIPTION KNEE HIGH ZIPPERED COMPRESSI*Problem List As Of Date 12/01/2017 Noted Resolved Asthma [J45.909] More... Esophageal reflux [K21.9] INVALID FOR* More... Hypothyroidism [E03.9] More... Vitamin D deficiency [E55.9] INVALID FOR*08/23/2017 More... Macular degeneration (senile) of retina, unspec* More... Greater trochanteric bursitis [M76.899] INVALID FOR*05/25/2013 More... Osteoporosis [M81.0] INVALID FOR* More... More... Esophagitis, unspecified [K20.9] INVALID FOR*09/05/2014 Hypertension goal BP (blood pressure) < 150/90 *INVALID FOR* More... 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 Vitamin D insufficiency [E55.9] Encounter for screening for malignant neoplasm *INVALID FOR* More... Dobbins's esophagus without dysplasia [K22.70] INVALID FOR* More...Prescriptions ordered this encounter Disp Refills Start End COMPOUNDED PRESCRIPTION 1 De* 2 12/01/2017 Class: Print RX Sig: KNEE HIGH ZIPPERED COMPRESSION STOCKINGS 20-30 MM . DX: EDEMAEncounter Number: [id number] Status:Closed by YAMILET LANIER MD on 12/01/17 [facility] PRO[facility] 12-01-2017 Protein mass conc HNO ID: [id number] thor: Yamilet Zhu) Danitza: (none)Author Type: PhysicianType: Progress NotesFiled: 12/01/2017 12:03 PMNote Text:Chief ComplaintPatient presents with:Edema: swelling in feetHPIIeleuterio Murray is a 82 year old female who presents here today for AboveComplaints..C/o swelling in feet and LE for the last week. Notes she had eaten outlast week and food may have been more salty, but swelling has persistedsince that time. Has not been treating symptoms at home with anything,though knows she should be keeping legs elevated. 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 Wu--no DJD- Hematuria 01/27/2015- Hiatal hernia 11/02/2011 Moderate size- Hypertension- Hypothyroidism- Macular degeneration (senile) of retina, unspecified Beginning of dry type in right; had wet typein left- Osteoporosis- Regional enteritis of unspecified site- Retinal tear- Snoring- Vitamin D insufficiencyPrevious Surgical HistoryPAST SURGICAL HISTORYProcedure Laterality Date- COLONOSCOP W/ OR W/O BRSH SPEC 01/17/2007 Colonoscopy- EGD W/O OR W/BRUSH/WASH 11/16/2011 EGD- EGD W/O OR W/BRUSH/WASH 11/01/13 EGD- EGD W/O OR W/BRUSH/WASH 10/16/15 EGD- PAST SURGICAL HISTORY OF retinal tear repair- HI ANESTH,RADICAL HYSTERECTOMY- REMV 2ND CATARACT,CORN-SCLER SECTN Cataract removalFamily HistoryFAMILY HISTORYProblem Relation Age of Onset- ovarian cancer [OTHER] Mother- Stroke Father- Heart Brother Bypass surgery- Diabetes SisterPatient AllergiesALLERGIESAllergen Reactions- Dairy [Homeopathic * Cough- Fosamax [Alendronat* Patient does not want bisphosphonates for treatment or prevention ofosteoporosis (articles she has read and dentist told her not to take)- Augmentin [Amoxicil* Diarrhea- Sulfa (Sulfonamide * ItchingCurrent MedicationsCurrent Outpatient Prescriptions on File Prior to Visit:fluticasone-salmeterol (ADVAIR DISKUS) 250-50 mcg/dose dsdv Inhale 1 Puffas instructed twice daily. RINSE AND GARGLE MOUTH WITH WATER AFTER EACHUSE.CALCIUM CARBONATE/VITAMIN D3 (VITAMIN D-3 ORAL) Take by mouth.omeprazole (PRILOSEC) 20 mg capsule Take 1 capsule by mouth once daily.levothyroxine (SYNTHROID) 50 mcg tablet Take 1 tablet by mouth once daily.CYANOCOBALAMIN, VITAMIN B-12, (VITAMIN B-12 ORAL) Take by mouth oncedaily.DOCOSAHEXANOIC ACID/EPA (FISH OIL ORAL) Take by mouth once daily.lisinopril (ZESTRIL, PRINIVIL) 10 mg tablet Take 1 tablet by mouth oncedaily.albuterol HFA (VENTOLIN HFA) 90 mcg/actuation inhaler Inhale 2 Puffs asinstructed every 4 hours as needed for Wheezing/Shortness of Breath.pyridoxine (VITAMIN B-6) 100 mg tablet Take 1 tablet by mouth once daily.COQ10, UBIQUINOL, ORAL Take by mouth.Bilberry Cap Take by mouth.ascorbic acid (VITAMIN C) 500 mg ORAL tablet Take 1 tablet by mouth twicedaily.vit c/dl-e ac/lut/copper/znox(PRESERVISION 226 MG-200 UNIT-5 MG CAP) Takeone(1) tablet two(2) times daily.COMPOUNDED PRESCRIPTION tumeric ?mg two (2) tablets dailyGLUCOSAMINE CHONDROITIN MAXSTR 500 MG-400 MG CAP take two a dayNo current facility-administered medications on file prior to visit.Social HistorySocial History Marital status: Spouse name: Rah Years of education: Number of children: 2Social History Main Topics Smoking status: Never Smoker Smokeless status: Never Used Alcohol use: No Drug use: NoReview of SymptomsREVIEW OF SYSTEMSGENERAL: No weight loss, malaise or feversRESPIRATORY: Negative for cough, hemoptysis, wheezing, COPD, dyspnea orshortness of breathCARDIOVASCULAR: Negative for chest pain, leg swelling, hypertension, CHFor palpitationsGI: No nausea, vomiting, or diarrheaSKIN: Negative for lesions, rash, and itchingEXAM:BP 130/78 Pulse 96 Resp 24 SpO2 93%General Appearance: Well appearing, alert, in no acute distress,well-hydrated, well nourished..Skin: Skin color, texture, turgor normal, no suspicious rashes or lesions.Lungs: Lungs clear to auscultation. No wheezing, rhonchi, rales.Heart: RRR without murmur, gallop, or rubs. No ectopy.Extremities: Edema: 2+ edema on left LE compared to 1+ on right, fromdorsum of foot to knee bilaterally with spider veins worse on left thanright. Pain on palpation of left calf.Health Maintenance ListTETANUS due on 03/04/2018DIABETES SCREEN due on 08/23/2020BONE DENSITY CompletedADULT PREVNAR-13 CompletedINFLUENZA CompletedPNEUMOVAX AGE 65 AND OVER WITH 5YR LOOKBACK CompletedData reviewedComponent Latest Ref Rng AND Units 08/23/2017Protein, Total 6.3 - 8.0 g/dL 7.4Albumin 3.9 - 4.9 g/dL 4.6Calcium 8.5 - 10.2 mg/dL 9.6Bilirubin, Total 0.2 - 1.3 mg/dL 0.2Alkaline Phosphatase 32 - 117 U/L 79AST 13 - 35 U/L 23Glucose 74 - 99 mg/dL 126 (H)BUN 7 - 21 mg/dL 17Creatinine 0.58 - 0.96 mg/dL 0.84Sodium 136 - 144 mmol/L 142Potassium 3.7 - 5.1 mmol/L 3.8Chloride 97 - 105 mmol/L 101CO2 22 - 30 mmol/L 27Anion Gap 9 - 18 mmol/L 14ALT 7 - 38 U/L 26eGFR- >60eGFR-All Other Races . >60WBC 3.70 - 11.00 k/uL 5.89RBC 3.90 - 5.20 m/uL 4.45Hemoglobin 11.5 - 15.5 g/dL 14.0Hematocrit 36.0 - 46.0 % 43.9MCV 80.0 - 100.0 fL 98.7MCH 26.0 - 34.0 pG 31.5MCHC 30.5 - 36.0 g/dL 31.9RDW-CV 11.5 - 15.0 % 12.9Platelet Count 150 - 400 k/uL 247MPV 9.0 - 12.7 fL 10.8Absolute nRBC <0.01 k/uL <0.01Hemoglobin A1C 4.3 - 5.6 % 5.6Estimated Average Glucose mg/dL 114TSH 0.400 - 5.500 uU/mL 1.350Vitamin D 25 Hydroxy 31.0 - 80.0 ng/mL 40.1ASSESSMENT/PLAN:1. Lower extremity edema - ICD9: 782.3, ICD10: R60.0 (primary diagnosis)Suspect 2/2 venous insufficiency. Will obtain venous duplex to rule outDVT due to calf pain and new swelling, suspicion is low. Advisedcompression stockings as ordered, keeping legs elevated, low sodium diet.Refusing further workup with echo and renal function studies today.- COMPOUNDED PRESCRIPTION2. Spider veins of both lower extremities - ICD9: 454.9, ICD10: I83.93See above.- COMPOUNDED PRESCRIPTIONChristopher Rubén Lanier MD [facility] PROGRESSon 11-16-2017 Protein mass conc HNO ID: [id number] thor: Amairani Angeles ([employer]) MAIKEL ColonService: (none)Author Type: Nurse PractitionerType: Progress NotesFiled: 11/16/2017 3:31 PMNote Text:HPIPatient presents with:left lower back pain: x 4 days-no other urinary symptomsStates hx of kidney stones and UTIs.Denies known injury.Denies any otc treatment for symptoms.Review of SystemsConstitutional: Negative.Respiratory: Negative.Gastrointestinal: Negative.Genitourinary: Negative.Musculoskeletal: Positive for back pain (left lower back pain x 4 days).Neurological: Negative for dizziness.PAST MEDICAL HISTORYDiagnosis Date- Asthma- 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 Wu--no DJD- Hematuria 01/27/2015- Hiatal hernia 11/02/2011 Moderate size- Hypertension- Hypothyroidism- Macular degeneration (senile) of retina, unspecified Beginning of dry type in right; had wet typein left- Osteoporosis- Regional enteritis of unspecified site- Retinal tear- Snoring- Vitamin D insufficiencyPAST SURGICAL HISTORYProcedure Laterality Date- COLONOSCOP W/ OR W/O BRSH SPEC 01/17/2007 Colonoscopy- EGD W/O OR W/BRUSH/WASH 11/16/2011 EGD- EGD W/O OR W/BRUSH/WASH 11/01/13 EGD- EGD W/O OR W/BRUSH/WASH 10/16/15 EGD- PAST SURGICAL HISTORY OF retinal tear repair- HI ANESTH,RADICAL HYSTERECTOMY- REMV 2ND CATARACT,CORN-SCLER SECTN Cataract removalALLERGIES Dairy [Homeopathic Products]; Fosamax [Alendronate Sodium];Augmentin [Amoxicillin-Pot Clavulanate]; Sulfa (Sulfonamide Antibiotics)MEDICATIONSfluticas one-salmeterol (ADVAIR DISKUS) 250-50 mcg/dose dsdv Inhale 1 Puffas instructed twice daily. RINSE AND GARGLE MOUTH WITH WATER AFTER EACHUSE.CALCIUM CARBONATE/VITAMIN D3 (VITAMIN D-3 ORAL) Take by mouth.omeprazole (PRILOSEC) 20 mg capsule Take 1 capsule by mouth once daily.levothyroxine (SYNTHROID) 50 mcg tablet Take 1 tablet by mouth once daily.CYANOCOBALAMIN, VITAMIN B-12, (VITAMIN B-12 ORAL) Take by mouth oncedaily.DOCOSAHEXANOIC ACID/EPA (FISH OIL ORAL) Take by mouth once daily.lisinopril (ZESTRIL, PRINIVIL) 10 mg tablet Take 1 tablet by mouth oncedaily.pyridoxine (VITAMIN B-6) 100 mg tablet Take 1 tablet by mouth once daily.COQ10, UBIQUINOL, ORAL Take by mouth.Bilberry Cap Take by mouth.ascorbic acid (VITAMIN C) 500 mg ORAL tablet Take 1 tablet by mouth twicedaily.vit c/dl-e ac/lut/copper/znox(PRESERVISION 226 MG-200 UNIT-5 MG CAP) Takeone(1) tablet two(2) times daily.COMPOUNDED PRESCRIPTION tumeric ?mg two (2) tablets dailyGLUCOSAMINE CHONDROITIN MAXSTR 500 MG-400 MG CAP take two a dayalbuterol HFA (VENTOLIN HFA) 90 mcg/actuation inhaler Inhale 2 Puffs asinstructed every 4 hours as needed for Wheezing/Shortness of Breath.FAMILY HISTORYProblem Relation Age of Onset- ovarian cancer [OTHER] Mother- Stroke Father- Heart Brother Bypass surgery- Diabetes SisterSocial HistorySubstance Use Topics- Smoking status: Never Smoker- Smokeless tobacco: Never Used- Alcohol use NoPhysical ExamConstitutional: She is well-developed, well-nourished, and in no distress.HENT:Head: Normocephalic.Eyes: Conjunctivae are normal.Neck: Normal range of motion.Cardiovascular: Normal rate, regular rhythm and normal heart sounds.Pulmonary/Chest: Effort normal and breath sounds normal.Abdominal: Soft. She exhibits no distension. There is no tenderness.Musculoskeletal:Back : straight and symmetric, no pinpoint spinal tenderness, leftlumbar/sacral paraspinal tenderness no CVA tenderness, Full ROM, Lowextrem. reflexes are 2+ and symmetric,and motor strength and sensory examare normal, mildly positive SLRNursing note and vitals reviewed.ASSESSMENT/PLAN:1. Acute left-sided low back pain, with sciatica presence unspecified -ICD9: 724.2, ICD10: M54.5Lumbosacral sprain- Ice for localized tenderness- Warm moist heat for 20 min three times a day- NSAIDS- UA today negative- F/u with pcp in 3-5 days or sooner if symptoms are not improving orworseningPrescription instructions reviewed with patient as applicable. Patientadvised if symptoms do not improve or if symptoms worsen sooner, tocontact their primary care physician. Potential red flag symptomsdiscussed with the patient. Reviewed appropriate action plan to take ifred flag symptoms occur. Patient agreeable to treatment plan.Amairani Colon CNP Normal [facility] HISTORY PHYSICALon 8 HISTORY PHYSICAL HNO ID: [id number] thor: Lisa ([employer]) ThorpeService: (none)Author Type: Nurse PractitionerType: HANDPFiled: 11/03/2017 12:58 PMNote Text:Arlin Murray a 82 year old female who is returning to discuss possiblesurveillance for Dobbins's esophagus. Her PCP is Dr. Lanier. Herscreening colonoscopy was in 2006. She tells me that it's time foranother colonoscopy.The patient was seen by Dr. Hebert for screening colonoscopy 01/17/07. Theprocedure report has been reviewed and findings as follows:IMPRESSION:1. ?Small non-bleeding external and internal hemorrhoids werepresent2. ?Normal colonoscopic examination. There is a fair degree oftortuosity noted in this left colon but no evidence of luminalnarrowing. ?Several diverticula were noted in the left colon.The patient was seen by Dr. Ramsey for upper endoscopy 10/16/15. Theprocedure report has been reviewed and findings as follows:Impression: ? ? - Large hiatus hernia.? - Savary-Wu Grade I reflux esophagitis.Biopsied.? - Normal stomach. Biopsied.? - Normal examined duodenum.FINAL DIAGNOSIS1. Stomach, antrum, biopsy (A) - Chronic inactive gastritis withintestinalmetaplasia, negative for dysplasia.Given the background of chronic gastritis a Helicobacterpyloriimmunostain was performed and is negative for Helicobacter pyloriorganisms.2. Esophagus at 32 cm, biopsy (B) - Dobbins's esophagus, negative fordysplasia.I have reviewed the procedure and pathology reports, as well as theimages, with the patient.Presenting complaint: The patient denies change in bowel habits, rectalbleeding or abdominal pain. Having a bowel movement daily. She rarelymisses a day. She has family members who have lived well into their 90's,so she wishes to proceed with colonoscopy.The patient takes omeprazole daily. She has a hiatal hernia. She isworking at sitting up straighter. She denies dysphagia, but notes thatanything with vinegar will make her cough.REVIEW OF SYSTEMS:GENERAL: No weight loss, malaise or feversRESPIRATORY: Shortness of breath. Sees respiratory therapy.CARDIOVASCULAR: Hypertension - on medicationGI: The patient states that her appetite has been good. She does gethungry. There has been no nausea, no vomiting. She denies dysphagia anddenies odynophagia. There has occasionally been indigestion withoutheartburn. There has not been regurgitation. Bowel habits have beenregular. There has not been diarrhea. There has not been constipation. Thepatient denies rectal bleeding. There has not been melena. No abdominalpain.HEMATOLOGY/LYMPHO LOGY Negative for prolonged bleeding, bruising easily orswollen nodesENDOCRINE: Hypothyroid. 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 Wu--no DJD- Hematuria 01/27/2015- Hiatal hernia 11/02/2011 Moderate size- Hypertension- Hypothyroidism- Macular degeneration (senile) of retina, unspecified Beginning of dry type in right; had wet typein left- Osteoporosis- Regional enteritis of unspecified site- Retinal tear- Snoring- Vitamin D insufficiencyPAST SURGICAL HISTORYProcedure Laterality Date- COLONOSCOP W/ OR W/O [facility] SPEC 01/17/2007 Colonoscopy- EGD W/O OR W/BRUSH/WASH 11/16/2011 EGD- EGD W/O OR W/BRUSH/WASH 11/01/13 EGD- EGD W/O OR W/BRUSH/WASH 10/16/15 EGD- PAST SURGICAL HISTORY OF retinal tear repair- HI ANESTH,RADICAL HYSTERECTOMY- REMV 2ND CATARACT,CORN-SCLER SECTN Cataract removalFAMILY HISTORYProblem Relation Age of Onset- ovarian cancer [OTHER] Mother- Stroke Father- Heart Brother Bypass surgery- Diabetes SisterCurrent Outpatient Prescriptions:fluticasone-salme terol (ADVAIR DISKUS) 250-50 mcg/dose dsdv Inhale 1 Puffas instructed twice daily. RINSE AND GARGLE MOUTH WITH WATER AFTER EACHUSE. Disp: 1 Inhaler Rfl: 5CALCIUM CARBONATE/VITAMIN D3 (VITAMIN D-3 ORAL) Take by mouth. Disp:Rfl:omeprazole (PRILOSEC) 20 mg capsule Take 1 capsule by mouth once daily.Disp: 90 capsule Rfl: 3levothyroxine (SYNTHROID) 50 mcg tablet Take 1 tablet by mouth once daily.Disp: 90 tablet Rfl: 3CYANOCOBALAMIN, VITAMIN B-12, (VITAMIN B-12 ORAL) Take by mouth oncedaily. Disp: Rfl:DOCOSAHEXANOIC ACID/EPA (FISH OIL ORAL) Take by mouth once daily. Disp:Rfl:lisinopril (ZESTRIL, PRINIVIL) 10 mg tablet Take 1 tablet by mouth oncedaily. Disp: 90 tablet Rfl: 3albuterol HFA (VENTOLIN HFA) 90 mcg/actuation inhaler Inhale 2 Puffs asinstructed every 4 hours as needed for Wheezing/Shortness of Breath.(Patient not taking: Reported on 08/23/2017) Disp: 1 Inhaler Rfl: 3pyridoxine (VITAMIN B-6) 100 mg tablet Take 1 tablet by mouth once daily.Disp: Rfl: 0COQ10, UBIQUINOL, ORAL Take by mouth. Disp: Rfl:Bilberry Cap Take by mouth. Disp: Rfl:ascorbic acid (VITAMIN C) 500 mg ORAL tablet Take 1 tablet by mouth twicedaily. Disp: Rfl: 0vit c/dl-e ac/lut/copper/znox(PRESERVISION 226 MG-200 UNIT-5 MG CAP) Takeone(1) tablet two(2) times daily. Disp: 0 Rfl: 0COMPOUNDED PRESCRIPTION tumeric ?mg two (2) tablets daily Disp: Rfl: 0GLUCOSAMINE CHONDROITIN MAXSTR 500 MG-400 MG CAP take two a day Disp:Rfl: 0No current facility-administered medications for this visit.SOCIAL HISTORY:Patient is . She has never smoked and reports her alcohol use asnever.PHYSICAL EXAMINATION:Blood pressure 157/75, pulse 80, height 149.9 cm (4' 11), weight 54.5 kg(120 lb 3.2 oz).General Appearance: Well appearing, alert, in no acute distress,well-hydrated, well nourished.Skin: Skin color, texture, turgor normal, no suspicious rashes or lesions.Eyes: Anicteric sclera. Pupils are equally round and reactive to light.Extraocular movements are intact.Oropharynx: Upper denture. Lips, mucosa, and tongue normal, gums normal,oropharynx normal.Neck: Supple, no adenopathy.Lungs: Lungs clear to auscultation. No wheezing, rhonchi, rales.Heart: RRR without murmur..Abdomen: Abdomen soft, non-tender. Bowel sounds normal. No masses,organomegaly.Extremities : No deformities, edema.Peripheral Pulses: Normal.Neurologic: Gait normal. Reflexes normal and symmetric. Sensation grosslyintact..Impression: Dobbins's 2)colorectal cancer screeningPlan: The patient will be scheduled for an upper endoscopy as well as acolonoscopy. Preparation for the procedures, using GoLytely as thelaxative, have been explained in detail. The risks, benefits, anticipatedoutcomes and possible complications were mentioned. I explained theprocedure in understandable terms and the patient was given printedmaterial concerning the planned procedure. The patient had the opportunityto ask questions concerning the planned procedure. The patient freelyconsents to the planned procedure.The patient is encouraged to call with any questions or concerns, orshould there be any change in health status between now and the scheduledprocedure.I have personally interviewed and examined this patient. I have read theinformation that the MA documented in this encounter. This visit was atleast 30 minutes in length with a majority of the time spent in review ofthe past records with the patient, discussion and counseling.Lisa Lo RN [facility] OBSOLETEon 10-25-2017 OBSOLETE Refill (INTMWS) IVONE ARLIN SWEET ([id number]) 1935 FDate Time Provider Department10/25/17 YAMILET LANIER) INTMWS During your visit today, we recorded the following information about you:Jeanne Benavidez Frantz Psr 10/25/2017 4:11 PM SignedPatient has been identified by name and date of : YesLast office visit in this department: 02/14/2017RX INSTRUCTIONS:Patient aware RX will be sent to pharmacy. No need to notify patient.Patient phones requesting refills as follows:Pending Prescriptions Disp Refills FLUTICASONE 250 MCG-SALMETEROL 50 MCG/DOSE BLISTR POWDR FOR INHALATION 1Inhaler 5 Sig: Inhale 1 Puff as instructed twice daily. RINSE AND GARGLE MOUTH WITHWATER AFTER EACH USE. KENIA: No Please review and advise.Jeanne Benavidez Frantz PsrAllergies As of Date: 10/25/2017 Noted Allergy ReactionDAIRY (HOMEOPATHIC PRODUCTS) 07/31/2007 3 - CoughFOSAMAX (ALENDRONATE SODIUM) 08/03/2008 Comments: Patient does not want bisphosphonates for treatment or prevention of osteoporosis (articles she has read and dentist told her not to take)AUGMENTIN (AMOXICILLIN-POT CLAVUL*03/06/2008 6 - DiarrheaSULFA (SULFONAMIDE ANTIBIOTICS) 07/21/2005 9 - ItchingDate Reviewed: 09/09/2017Reviewed by: Amairani Angeles (Wafer Batter Mixer) MAIKEL Colon - Fully AssessedReason for Visit: Refill Request [94]Order(s):fluticasone-salmet renetta (ADVAIR DISKUS) 250-50 mcg/dose dsdvInhale 1 Puff as instructed twice daily. RINSE AND GARGLE MOUTH WITH WATER AFTER EACH USE.Disp: 1 InhalerRfl: 5Prescriptions as of 10/25/2017 Sig: FLUTICASONE 250 MCG-SALMETERO* Inhale 1 Puff as instructed t* VITAMIN D-3 ORAL Take by mouth. OMEPRAZOLE 20 MG CAPSULE,YARITZA* Take 1 capsule by mouth once * LEVOTHYROXINE 50 MCG TABLET Take 1 tablet by mouth once d* VITAMIN B-12 ORAL Take by mouth once daily. FISH OIL ORAL Take by mouth once daily. LISINOPRIL 10 MG TABLET Take 1 tablet by mouth once d* ALBUTEROL SULFATE HFA 90 MCG/* Inhale 2 Puffs as instructed * Patient not taking: Reported on 08/23/2017 PYRIDOXINE (VITAMIN B6) 100 M* Take 1 tablet by mouth once d* * COQ10 (UBIQUINOL) ORAL Take by mouth. * BILBERRY CAPSULE Take by mouth. * ASCORBIC ACID (VITAMIN C) 500* Take 1 tablet by mouth twice * * PRESERVISION LUTEIN 226 MG-20* Take one(1) tablet two(2) ridge* * COMPOUNDED PRESCRIPTION tumeric ?mg two (2) tablets d* * GLUCOSAMINE CHONDROITIN MAXIM* take two a dayProblem List As Of Date 10/25/2017 Noted Resolved Asthma [J45.909] More... Esophageal reflux [K21.9] INVALID FOR* More... Hypothyroidism [E03.9] More... Vitamin D deficiency [E55.9] INVALID FOR*08/23/2017 More... Macular degeneration (senile) of retina, unspec* More... Greater trochanteric bursitis [M76.899] INVALID FOR*05/25/2013 More... Osteoporosis [M81.0] INVALID FOR* More... More... Esophagitis, unspecified [K20.9] INVALID FOR*09/05/2014 Hypertension goal BP (blood pressure) < 150/90 *INVALID FOR* More... 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 Vitamin D insufficiency [E55.9]Prescriptions ordered this encounter Disp Refills Start End FLUTICASONE 250 MCG-SALMETEROL 50 MC* 1 In* 5 10/25/2017 Route: INHALATION Sig: Inhale 1 Puff as instructed twice daily. RINSE AND GARGLE MOUTH WITH WATER AFTER EACH USE.Medications Discontinued During This Encounter ADVAIR DISKUS 250-50 mcg/dose dsdv 1 In* 5 10/25/2017 10/25/2017 Sig: Inhale 1 Puff as instructed twice daily. RINSE AND GARGLE MOUTH WITH WATER AFTER EACH USE. Disc: Reason for discontinue is not on file. Status:Closed by YAMILET LANIER MD on 10/25/17 Normal [facility] CNOVon 09-01-2017 CNOV Office Visit (AGCARDWST) [facility]ON[facility] SWEET ([id number]) 1935 [facility] Time Provider Ggkwripigx76/30/17 3:00 PM EMERALD GARZA During your visit today, we recorded the following information about you: Pulse Blood pressure Weight 76/minute 145/91 53.3 kgEmerald Garza MD 09/01/2017 3:46 PM SignedPERTINENT CARDIAC HISTORYHTNDOEChest pain - normal cathADHERENCE TO GUIDELINESACE-I or ARB for HF with prior LVEFANDlt;40 (NQF 0081) - N/AASA or Plavix for ASHD (NQF 0067) - N/ABeta palmer for ASHD with prior VT or prior LVEFANDlt;40 (NQF 0070) - N/ABeta palmer for HF with prior LVEFANDlt;40 (NQF 0083) - N/AACE-I or ARB for ASHD with DM or prior LVEFANDlt;40 (NQF 0066) - N/AStatin therapy for ASHD or FHL or DM - N/ABMI documented and plan if ANDgt;25 (NQF 0421) - lifestyle recommendation formTobacco use screening and referral (NQF 0028) - lifestyle recommendation formRecommendation for whole food, plant based diet - lifestyle recommendation formCLINICAL IMPRESSION/PLAN:Arlin Murray is doing well. She's encouraged to continue her therapyprogram. She reports blood pressures at home have been in the 130/70 range. Ifthey climb much above this, she's been advised to call and we can adjustmedications.I will see her in 12 months or as needed. If there is increased chest pain orshortness of breath, she has been advised to contact me.Written and verbal health teaching given to patient, patient verbalizesunderstanding and agrees with treatment plan.This note was generated using natue voice recognition system, and there may besome incorrect words, spellings, and punctuation that were not noted inchecking the note before saving.DIAGNOSIS FOR VISIT:HypertensionChest painHISTORY OF PRESENT ILLNESSArlin Murray returns for follow-up of her hypertension and chest painsyndrome.She reports stable exercise tolerance. She is currently working with atherapist to improve her balance and flexibility. She's had no recent chestdiscomfort. She denies orthopnea, edema, syncope, palpitations, TIAs, amaurosisand claudicationALLERGIES:ALLERGIES Allergen Reactions- Dairy [Homeopathic * Cough- Fosamax [Alendronat* Patient does not want bisphosphonates for treatment or prevention ofosteoporosis (articles she has read and dentist told her not to take)- Augmentin [Amoxicil* Diarrhea- Sulfa (Sulfonamide * ItchingCURRENT OUTPATIENT MEDICATIONS:omeprazole (PRILOSEC) 20 mg capsule Take 1 capsule by mouth once daily.levothyroxine (SYNTHROID) 50 mcg tablet Take 1 tablet by mouth once daily.CYANOCOBALAMIN, VITAMIN B-12, (VITAMIN B-12 ORAL) Take by mouth once daily.DOCOSAHEXANOIC ACID/EPA (FISH OIL ORAL) Take by mouth once daily.lisinopril (ZESTRIL, PRINIVIL) 10 mg tablet Take 1 tablet by mouth once daily.albuterol HFA (VENTOLIN HFA) 90 mcg/actuation inhaler Inhale 2 Puffs asinstructed every 4 hours as needed for Wheezing/Shortness of Breath.fluticasone-salmeterol (ADVAIR DISKUS) 250-50 mcg/dose dsdv Inhale 1 Puff asinstructed twice daily. RINSE AND GARGLE MOUTH WITH WATER AFTER EACH USE.pyridoxine (VITAMIN B-6) 100 mg tablet Take 1 tablet by mouth once daily.COQ10, UBIQUINOL, ORAL Take by mouth.Bilberry Cap Take by mouth.ascorbic acid (VITAMIN C) 500 mg ORAL tablet Take 1 tablet by mouth twicedaily.vit c/dl-e ac/lut/copper/znox(PRESERVISION 226 MG-200 UNIT-5 MG CAP) Takeone(1) tablet two(2) times daily.COMPOUNDED PRESCRIPTION tumeric ?mg two (2) tablets dailyGLUCOSAMINE CHONDROITIN MAXSTR 500 MG-400 MG CAP take two a dayPHYSICAL EXAMINATION:VITAL SIGNS: BP 145/91 Pulse 76 Wt 117 lb 9.6 oz (53.3kg)Chest: Clear to percussion and auscultation. Trachea is midline. Air entry isequal. Cardiac: Regular rhythm. S1 and S2 are normal. PMI is nondisplaced.There is a soft systolic ejection murmur without radiation. Carotids arebrisk without bruits. JVP is less than 10 cm. Abdomen: Soft and nontender.There are no pulsatile masses or bruits. No liver enlargement. Bowel soundsare active. Extremities: No edema. Pulses are intact and symmetrical.EKG shows sinus rhythm with atrial prematures. There is no significant changefrom 08/03/16.Recent labs were reviewed. Renal function is normal. CBC is within normallimits. TSH is normal and LDL was 107Electronically Signed:Emerald Garza MDSeptember 01, 2017 3:22 [facility]: Beth Lee MD 09/01/2017 3:23 PM SignedLIFESTYLE CHANGEA healthy lifestyle is the most important component of your overall treatmentplan. Please give serious thought to the following areas and commit to makinglong term changes.EAT A WHOLE FOOD, PLANT BASED DIETThe nutrition your body gets is more important than the medicine you take.What matters most is the overall way you eat. We encourage you to minimize theuse of animal products (which include dairy and all meats except fatty fish)and use whole, unprocessed plant foods to provide your protein, vitamins andother nutrients. We have a lot of information to share with you on this topic. We also hold Shared Medical Appointments, where you can come visit with in the company of other patients and spend over an hour talking aboutthe challenges of changing the way you eat. This is not a ANDquot;dietANDquot;.It is a way of life that you will keep with you.EXERCISE REGULARLYIt is not important to spend hours in the gym, lifting weights and perspiringheavily. A total of 2-3 hours per week of aerobic (causing you to bemoderately short of breath) exercise is sufficient to improve your health.Talk to us before you begin a new exercise program, if you have heart diseaseor experience shortness of breath or chest pain.REDUCE STRESSChronic emotional and physical stress leads to disease. Ways of reducingstress include meditation, visualization, prayer, yoga and other forms ofrelaxation therapy. Consistency is the anand. Find a technique that works foryou and do it every day.CULTIVATE RELATIONSHIPSLoneliness and isolation have a major negative impact on health. Seek outothers who can love, care for and nurture you. Avoid hurtful relationships.MAINTAIN IDEAL BODY WEIGHTThe best way to do this is to do all the things above. Our bodies naturallyfind the right weight if we keep moving and feed ourselves the right food. Ifyour BMI is greater than 25, we strongly recommend a referral to a weightmanagement program. Please speak to us or your family physician aboutavailable programs.AVOID NICOTINE IN ALL FORMSThis includes all tobacco products, whether chewed, smoked, vaped, or rubbed onthe skin. Smoking cessation programs, which can make use of tobaccosubstitutes, medications to suppress cravings and behavior management, areavailable. Please contact your family physician about programs in your area.Referring Provider: EMERALD GRAZA [[id number]]Allergies As of Date: 09/01/2017 Noted Allergy ReactionDAIRY (HOMEOPATHIC PRODUCTS) 07/31/2007 3 - CoughFOSAMAX (ALENDRONATE SODIUM) 08/03/2008 Comments: Patient does not want bisphosphonates for treatment or prevention of osteoporosis (articles she has read and dentist told her not to take)AUGMENTIN (AMOXICILLIN-POT CLAVUL*03/06/2008 6 - DiarrheaSULFA (SULFONAMIDE ANTIBIOTICS) 07/21/2005 9 - ItchingDate Reviewed: 09/01/2017Reviewed by: Jessica (Brittany) Bakari - Fully AssessedReason for Visit: Recheck [92]Primary Visit Diagnosis:Hypertension, essential [I10]Order(s):ECG B/O W INTERP (MED OFFICE) [ECG06] Order #: [id number] as of 09/01/2017 Sig: OMEPRAZOLE 20 MG CAPSULE,YARITZA* Take 1 capsule by mouth once * LEVOTHYROXINE 50 MCG TABLET Take 1 tablet by mouth once d* VITAMIN B-12 ORAL Take by mouth once daily. FISH OIL ORAL Take by mouth once daily. LISINOPRIL 10 MG TABLET Take 1 tablet by mouth once d* ALBUTEROL SULFATE HFA 90 MCG/* Inhale 2 Puffs as instructed * Patient not taking: Reported on 08/23/2017 FLUTICASONE 250 MCG-SALMETERO* Inhale 1 Puff as instructed t* PYRIDOXINE (VITAMIN B6) 100 M* Take 1 tablet by mouth once d* * COQ10 (UBIQUINOL) ORAL Take by mouth. * BILBERRY CAPSULE Take by mouth. * ASCORBIC ACID (VITAMIN C) 500* Take 1 tablet by mouth twice * * PRESERVISION LUTEIN 226 MG-20* Take one(1) tablet two(2) ridge* * COMPOUNDED PRESCRIPTION tumeric ?mg two (2) tablets d* * GLUCOSAMINE CHONDROITIN MAXIM* take two a dayProblem List As Of Date 09/01/2017 Noted Resolved Asthma [J45.909] More... Esophageal reflux [K21.9] INVALID FOR* More... Hypothyroidism [E03.9] More... Vitamin D deficiency [E55.9] INVALID FOR*08/23/2017 More... Macular degeneration (senile) of retina, unspec* More... Greater trochanteric bursitis [M76.899] INVALID FOR*05/25/2013 More... Osteoporosis [M81.0] INVALID FOR* More... More... Esophagitis, unspecified [K20.9] INVALID FOR*09/05/2014 Hypertension goal BP (blood pressure) < 150/90 *INVALID FOR* More... 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 Vitamin D insufficiency [E55.9] Other instructions from your clinician: LIFESTYLE CHANGE A healthy lifestyle is the most important component of your overall treatment plan. Please give serious thought to the following areas and commit to making jail changes. EAT A WHOLE FOOD, PLANT BASED DIET The nutrition your body gets is more important than the medicine you take. What matters most is the overall way you eat. We encourage you to minimize the use of animal products (which include dairy and all meats except fatty fish) and use whole, unprocessed plant foods to provide your protein, vitamins and other nutrients. We have a lot of information to share with you on this topic. We also hold Shared Medical Appointments, where you can come visit with Dr. Garza in the company of other patients and spend over an hour talking about the challenges of changing the way you eat. This is not a diet. It is a way of life that you will keep with you. EXERCISE REGULARLY It is not important to spend hours in the gym, lifting weights and perspiring heavily. A total of 2-3 hours per week of aerobic (causing you to be moderately short of breath) exercise is sufficient to improve your health. Talk to us before you begin a new exercise program, if you have heart disease or experience shortness of breath or chest pain. REDUCE STRESS Chronic emotional and physical stress leads to disease. Ways of reducing stress include meditation, visualization, prayer, yoga and other forms of relaxation therapy. Consistency is the anand. Find a technique that works for you and do it every day. CULTIVATE RELATIONSHIPS Loneliness and isolation have a major negative impact on health. Seek out others who can love, care for and nurture you. Avoid hurtful relationships. MAINTAIN IDEAL BODY WEIGHT The best way to do this is to do all the things above. Our bodies naturally find the right weight if we keep moving and feed ourselves the right food. If your BMI is greater than 25, we strongly recommend a referral to a weight management program. Please speak to us or your family physician about available programs. AVOID NICOTINE IN ALL FORMS This includes all tobacco products, whether chewed, smoked, vaped, or rubbed on the skin. Smoking cessation programs, which can make use of tobacco substitutes, medications to suppress cravings and behavior management, are available. Please contact your family physician about programs in your area.Follow-up and Disposition History RecordedEncounter Number: [id number] Status:Closed by EMERALD GARZA MD on 09/01/17 Normal [facility] PROGRESSon 09-01-2017 PROGRESS HNO ID: [id number] thor: Emerald Lepe: (none)Author Type: PhysicianType: Progress NotesFiled: 09/01/2017 3:46 PMNote Text:PERTINENT CARDIAC HISTORYHTNDOEChest pain - normal cathADHERENCE TO GUIDELINESACE-I or ARB for HF with prior LVEF<40 (NQF 0081) - N/AASA or Plavix for ASHD (NQF 0067) - N/ABeta palmer for ASHD with prior VT or prior LVEF<40 (NQF 0070) - N/ABeta palmer for HF with prior LVEF<40 (NQF 0083) - N/AACE-I or ARB for ASHD with DM or prior LVEF<40 (NQF 0066) - N/AStatin therapy for ASHD or FHL or DM - N/ABMI documented and plan if >25 (NQF 0421) - lifestyle recommendation formTobacco use screening and referral (NQF 0028) - lifestyle recommendationformRecommendatio n for whole food, plant based diet - lifestyle recommendationformCLINICAL IMPRESSION/PLAN:Arlin Murray is doing well. She's encouraged to continue her therapyprogram. She reports blood pressures at home have been in the 130/70range. If they climb much above this, she's been advised to call and wecan adjust medications.I will see her in 12 months or as needed. If there is increased chest painor shortness of breath, she has been advised to contact me.Written and verbal health teaching given to patient, patient verbalizesunderstanding and agrees with treatment plan.This note was generated using Near Infinity recognition system, and theremay be some incorrect words, spellings, and punctuation that were notnoted in checking the note before saving.DIAGNOSIS FOR VISIT:HypertensionChest painHISTORY OF PRESENT ILLNESSArlin Murray returns for follow-up of her hypertension and chest painsyndrome.She reports stable exercise tolerance. She is currently working with atherapist to improve her balance and flexibility. She's had no recentchest discomfort. She denies orthopnea, edema, syncope, palpitations,TIAs, amaurosis and claudicationALLERGIES:ALLERGIES Allergen Reactions- Dairy [Homeopathic * Cough- Fosamax [Alendronat* Patient does not want bisphosphonates for treatment or prevention ofosteoporosis (articles she has read and dentist told her not to take)- Augmentin [Amoxicil* Diarrhea- Sulfa (Sulfonamide * ItchingCURRENT OUTPATIENT MEDICATIONS:omeprazole (PRILOSEC) 20 mg capsule Take 1 capsule by mouth once daily.levothyroxine (SYNTHROID) 50 mcg tablet Take 1 tablet by mouth once daily.CYANOCOBALAMIN, VITAMIN B-12, (VITAMIN B-12 ORAL) Take by mouth oncedaily.DOCOSAHEXANOIC ACID/EPA (FISH OIL ORAL) Take by mouth once daily.lisinopril (ZESTRIL, PRINIVIL) 10 mg tablet Take 1 tablet by mouth oncedaily.albuterol HFA (VENTOLIN HFA) 90 mcg/actuation inhaler Inhale 2 Puffs asinstructed every 4 hours as needed for Wheezing/Shortness of Breath.fluticasone-salmeterol (ADVAIR DISKUS) 250-50 mcg/dose dsdv Inhale 1 Puffas instructed twice daily. RINSE AND GARGLE MOUTH WITH WATER AFTER EACHUSE.pyridoxine (VITAMIN B-6) 100 mg tablet Take 1 tablet by mouth once daily.COQ10, UBIQUINOL, ORAL Take by mouth.Bilberry Cap Take by mouth.ascorbic acid (VITAMIN C) 500 mg ORAL tablet Take 1 tablet by mouth twicedaily.vit c/dl-e ac/lut/copper/znox(PRESERVISION 226 MG-200 UNIT-5 MG CAP) Takeone(1) tablet two(2) times daily.COMPOUNDED PRESCRIPTION tumeric ?mg two (2) tablets dailyGLUCOSAMINE CHONDROITIN MAXSTR 500 MG-400 MG CAP take two a dayPHYSICAL EXAMINATION:VITAL SIGNS: BP 145/91 Pulse 76 Wt 117 lb 9.6 oz (53.3kg)Chest: Clear to percussion and auscultation. Trachea is midline. Airentry is equal. Cardiac: Regular rhythm. S1 and S2 are normal. PMI isnondisplaced. There is a soft systolic ejection murmur without radiation. Carotids are brisk without bruits. JVP is less than 10 cm. Abdomen:Soft and nontender. There are no pulsatile masses or bruits. No liverenlargement. Bowel sounds are active. Extremities: No edema. Pulses areintact and symmetrical.EKG shows sinus rhythm with atrial prematures. There is no significantchange from 08/03/16.Recent labs were reviewed. Renal function is normal. CBC is within normallimits. TSH is normal and LDL was 107Electronically Signed:Emerald Garza MDNovember 2016 3:22 PMCC: Yamilet Lanier MD [facility] Encounters Encounter Date Encounter Type Care Provider Facility Start: 11-26-2024 End: 11-26-[address] [facility] Facility:[facility] Start: 07-18-2024 End: 07-18-[address] [facility] Facility:[facility] Start: 02-24-2024 End: 02-24-[address] [facility] Facility:[facility] Start: 01-26-2024 End: 01-26-[address] [facility] Facility:[facility] Start: 01-13-2024 End: 01-13-2024 ambulatory [facility] Work Phone: Start: 01-13-2024 End: 01-13-2024 Patient encounter procedure [facility] Work Phone: Start: 01-13-2024 End: 01-13-2024 ambulatory Goyo Mata Facility:[facility] Start: 11-22-2023 End: 11-22-2023 ambulatory [facility] Work Phone: Start: 11-22-2023 End: 11-22-2023 Patient encounter procedure [facility] Start: 11-08-2022 End: 11-08-2022 ambulatory [facility] Work Phone: Start: 11-08-2022 End: 11-08-2022 Patient encounter procedure [facility] Start: 09-15-2022 End: 09-15-2022 ambulatory [facility] Work Phone: Start: 09-15-2022 End: 09-15-2022 Patient encounter procedure [facility]-Radiology, [facility] Start: 09-01-2018 End: 09-04-2018 Ambulatory EMERALD GARZA Facility:[facility] Start: 12-05-2017 End: 12-05-2017 Patient encounter procedure YAMILET ZHU) [facility] Start: 12-01-2017 End: 12-02-2017 Patient encounter procedure YAMILET ZHU) [facility] Start: 11-16-2017 End: 11-18-2017 [facility] [facility] Start: 11-03-2017 End: 11-03-2017 Patient encounter procedure LISA (PHYSICIAN GENERAL INTERNAL MEDICINE) [facility] Start: 09-01-2017 Ambulatory EMERALD Peck GREG [facility] Procedures Date Procedure Procedure Detail Performing Clinician Start: 01-13-2024 Plain chest X-ray Start: 09-15-2022 X-ray of lumbar spin e, two or three views Immunizations Immunization Date Immunization Notes Care Provider Marlena mondragon 12-25-2020 Covid (Pfizer) [facility] 12-04-2020 Covid (Pfizer) [facility] 05-05-2019 tetanus toxoid, redu kaur diphtheria toxoid, and acellular pertussis vaccine, adsorbed [facility] Payers Date Payer Category Payer Self-pay [id number] 2006 Unknown [id number] 2000 Medicare [id number] Medicare [id number] Unknown [id number] [id number] [id number] Unknown [id number] 2.16.8 [id number] Unknown [id number] 2.16.8 [id number] Unknown [id number] 2.16.8 [id number] Unknown [id number] 2.16.8 [id number] Social History Date Type Detail Facility Start: 05-05-2019 End: 07-27-2023 Tobacco smoking status IAIS Unknown if ever smoked [facility] Start: 10-26-2021 None [facility] Start: 03-20-2019 Non-smoker [facility] Start: 1935 Sex Assigned At Female [facility] Procedure Code Equipment Code Equipment Origin al Text Equipment Identifier Dates Kyphoplasty ORQUIDEA KYPHO AUTOPLEX FDA Start: 03-23-2019 Kyphoplasty ORQUIDEA KYPHO AUTOPLEX FDA Start: 03-23-2019 Kyphoplasty ORQUIDEA KYPHO AUTOPLEX FDA Start: 03-23-2019 Kyphoplasty ORQUIDEA KYPHO AUTOPLEX FDA Start: 03-23-2019 Evaluation note Note Date & Type Note Facility Evaluation note No assessment information availa ble [facility] Work Phone: Summary Purpose Family History No Family History Records FoundNo Family History Records FoundNo Family History Records FoundNo Family History Records Found Advance Directives No Advanced Directives Records Found Advance Directive Response Recorded Date/ Time Living Will No May 05, 2019 8:20am Power of Information Resources Director No May 05 8:20am Advance Directive Response Recorded Date/ Time Living Will No February 18, 2023 7 :09am Power of Information Resources Director No February 18, 2023 7:09am Advance Directive Response Recorded Date/ Time Living Will No February 18, 2023 8 :09am Power of Information Resources Director No February 18, 2023 8:09am Chief Complaint and Reason for Visit Chief Complaint BACK PAIN Chief Complaint Shortness of breath Additional Source Comments INFORMATION SOURCE (unrecogn ized section and content) DATE CREATED AUTHOR 03/28/2018 [facility] DATE CREATED AUTHOR AUTHOR'S ORGANIZ ATION 03/28/2018 [facility] DATE CREATED AUTHOR AUTHOR'S ORGANIZ ATION 09/11/2018 [facility] DATE CREATED AUTHOR AUTHOR'S ORGANIZ ATION 12/08/2024 [facility] Goals (unrecognized section and content) Goals may be documented in a n alternate sectionGoals may be documented in an alternate sectionGoals may be documented in an alternate sectionGoals may be documented in an alternate section Care Teams (unrecognized sec tion and content) Team Status: Active Member Role Status Dates Dr. Tawanda Muñiz MD Family Provider Active Dr. Tawanda Muñiz MD Primary Care Provider Active Team Status: Inactive Member Role Status Dates Dr. Tawanda Muñiz MD Primary Care Provider Active Dr. Washington Harmon MD Attending Provider, Referring Pr ovider Active Team Status: Inactive Member Role Status Dates Dr. Tawanda Muñiz MD Primary Care Provider, Attending Jose russell Active Team Status: Inactive Member Role Status Dates Dr. Tawanda Muñiz MD Primary Care Provider Active Dr. Goyo Mata MD Attending Provider, Referring Pr ovider Active FOR RECORDS PERTAINING TO PATIENTS WHO ARE [...] BE BASED ON THE PRIMARY CLINICAL RECORDS. [employer] provides no warranty or guarantee of the accuracy or completeness of information in this document.
--- OUTSIDE RECORDS SUMMARY | 2025-03-14 23:52 | XMS RPT_ITS | CCD ---
Author Organization [facility] CliniSyfl Care Team Providers Care Steam Conditioner Operator Name Role Phone GREG, EMERALD E Unavailable Unavailable GREG, EMERALD E Unavailable Unavailable GREG, EMERALD Unavailable Unavailable GREG, EMERALD Unavailable Unavailable GREG, EMERALD Unavailable Unavailable GREG, EMERALD Unavailable Unavailable LISA LO (HOSPITAL CARRIER) Unavailable Unavailable HILTON CISSE Unavailable Unavailable YAMILET [...] alendronate; Translations: [ALENDRONATE SODIUM] Drug Allergy 8 [facility] Repository (8 sources) Sulfonamides (Antibiotic); Translations: [SULFA (SULFONAMIDE ANTIBIOTICS)] Propensity to adverse reactions to drug (disorder) 5 AOF, Unknown [facility] Repository (3 sources) HOMEOPATHIC PRODUCTS; Translations: [HOMEOPATHIC PRODUCTS] Propensity to adverse reactions to drug (disorder) 7 AOF [facility] Repository (3 sources) AMOXICILLIN-POT CLAVULANATE; Translations: [AMOXICILLIN-POT CLAVULANATE] Propensity to adverse reactions to drug (disorder) 8 [facility] Rep[facility] Medications Current Medications Medication Drug [...] Absolute Lymph 0.69 X10 3/uL Low 0.83-4.51 [facility] Comment on above: Order Comment: Order Date: 11/26/24 Order Info: 0184-1 - CBCD Performed By: #### L 502.0250, L506.1000, L503.0105, L500.4050, L100.0100, L506.0250, L501.9520 #### [facility] [address] [place], [address] Absolute Neut 4.1 X10 3/uL Normal 2.0-7.7 [facility] Comment on above: Order Comment: Order Date: 11/26/24 Order Info: 0184-1 - CBCD Performed By: #### L 502.0250, L506.1000, L503.0105, L500.4050, L100.0100, L506.0250, L501.9520 #### [facility] [address] [place], [address] Basophils/100 WBC (Bld) 1.0 % Normal 0-1 [facility] Comment on above: Order Comment: Order Date: 11/26/24 Order Info: 0184-1 - CBCD Performed By: #### L 502.0250, L506.1000, L503.0105, L500.4050, L100.0100, L506.0250, L501.9520 #### [facility] [address] [place], [address] Eosinophils/100 WBC (Bld) 7.5 % High 0-5 [facility] Comment on above: Order Comment: Order Date: 11/26/24 Order Info: 0184-1 - CBCD Performed By: #### L 502.0250, L506.1000, L503.0105, L500.4050, L100.0100, L506.0250, L501.9520 #### [facility] [address] [place], [address] Erythrocyte distribution width (RBC) [Ratio] 12.5 % Normal 11.6-14.6 [facility] Comment on above: Order Comment: Order Date: 11/26/24 Order Info: 0184-1 - CBCD Performed By: #### L 502.0250, L506.1000, L503.0105, L500.4050, L100.0100, L506.0250, L501.9520 #### [facility] [address] [place], [address] Hematocrit (Bld) [Volume fraction] 41.8 % Normal 37-47 [facility] Comment on above: Order Comment: Order Date: 11/26/24 Order Info: 0184-1 - CBCD Performed By: #### L 502.0250, L506.1000, L503.0105, L500.4050, L100.0100, L506.0250, L501.9520 #### [facility] [address] [place], [address] Hemoglobin (Bld) [Mass/Vol] 13.1 g/dL Normal 12.0-15.0 [facility] Comment on above: Order Comment: Order Date: 11/26/24 Order Info: 0184-1 - CBCD Performed By: #### L 502.0250, L506.1000, L503.0105, L500.4050, L100.0100, L506.0250, L501.9520 #### [facility] [address] [place], [address] IG% 0.200 Normal 0.0-0.9 [facility] Comment on above: Order Comment: Order Date: 11/26/24 Order Info: 0184-1 - CBCD Result Comment: IG% - Immature Granulocytes (promyelocytes, myelocytes and metamyelocytes) > 1% indicates that a LEFT SHIFT is Present. Performed By: #### L 502.0250, L506.1000, L503.0105, L500.4050, L100.0100, L506.0250, L501.9520 #### [facility] [address] [place], [address] Lymphocytes/100 WBC (Bld) 11.6 % Low 19-41 [facility] Comment on above: Order Comment: Order Date: 11/26/24 Order Info: 0184-1 - CBCD Performed By: #### L 502.0250, L506.1000, L503.0105, L500.4050, L100.0100, L506.0250, L501.9520 #### [facility] [address] [place], [address] MCH (RBC) [Entitic mass] 30.8 pg Normal 27.0-32.0 [facility] Comment on above: Order Comment: Order Date: 11/26/24 Order Info: 0184-1 - CBCD Performed By: #### L 502.0250, L506.1000, L503.0105, L500.4050, L100.0100, L506.0250, L501.9520 #### [facility] [address] [place], [address] MCHC (RBC) [Mass/Vol] 31.3 g/dL Low 32-36 [facility] Comment on above: Order Comment: Order Date: 11/26/24 Order Info: 0184-1 - CBCD Performed By: #### L 502.0250, L506.1000, L503.0105, L500.4050, L100.0100, L506.0250, L501.9520 #### [facility] [address] [place], [address] MCV (RBC) [Entitic vol] 98.4 fL Normal 81-99 [facility] Comment on above: Order Comment: Order Date: 11/26/24 Order Info: 0184-1 - CBCD Performed By: #### L 502.0250, L506.1000, L503.0105, L500.4050, L100.0100, L506.0250, L501.9520 #### [facility] [address] [place], [address] Monocytes/100 WBC (Bld) 11.7 % High 0-10 [facility] Comment on above: Order Comment: Order Date: 11/26/24 Order Info: 0184-1 - CBCD Performed By: #### L 502.0250, L506.1000, L503.0105, L500.4050, L100.0100, L506.0250, L501.9520 #### [facility] [address] [place], [address] Neutrophils/100 WBC (Bld) 68.0 % Normal 47-70 [facility] Comment on above: Order Comment: Order Date: 11/26/24 Order Info: 0184-1 - CBCD Performed By: #### L 502.0250, L506.1000, L503.0105, L500.4050, L100.0100, L506.0250, L501.9520 #### [facility] [address] [place], [address] Nucleated RBC (Bld) [#/Vol] 0 10*3/uL Normal 0-5 [facility] Comment on above: Order Comment: Order Date: 11/26/24 Order Info: 0184-1 - CBCD Performed By: #### L 502.0250, L506.1000, L503.0105, L500.4050, L100.0100, L506.0250, L501.9520 #### [facility] [address] [place], [address] Platelet mean volume (Bld) [Entitic vol] 10.1 fL Normal 6.2-12.0 [facility] Comment on above: Order Comment: Order Date: 11/26/24 Order Info: 0184-1 - CBCD Performed By: #### L 502.0250, L506.1000, L503.0105, L500.4050, L100.0100, L506.0250, L501.9520 #### [facility] [address] [place], [address] Platelets (Bld) [#/Vol] 244 10*3/uL Normal 150-450 [facility] Comment on above: Order Comment: Order Date: 11/26/24 Order Info: 0184- - CBCD Performed By: #### L 502.0250, L506.1000, L503.0105, L500.4050, L100.0100, L506.0250, L501.9520 #### [facility] [address] [place], [address] RBC (Bld) [#/Vol] 4.25 10*6/uL Normal 4.2-5.4 [facility] Comment on above: Order Comment: Order Date: 11/26/24 Order Info: 0184-1 - CBCD Performed By: #### L 502.0250, L506.1000, L503.0105, L500.4050, L100.0100, L506.0250, L501.9520 #### [facility] [address] [place], [address] RDW SD 45.2 fl High 35.1-43.9 [facility] Comment on above: Order Comment: Order Date: 11/26/24 Order Info: 0184-1 - CBCD Performed By: #### L 502.0250, L506.1000, L503.0105, L500.4050, L100.0100, L506.0250, L501.9520 #### [facility] [address] [place], [address] WBC (Bld) [#/Vol] 6.0 10*3/uL Normal 4.4-11.0 [facility] Comment on above: Order Comment: Order Date: 11/26/24 Order Info: 0184-1 - CBCD Performed By: #### L 502.0250, L506.1000, L503.0105, L500.4050, L100.0100, L506.0250, L501.9520 #### [facility] [address] [place], [address] Comprehensive Metabolic Prof ilon 11-26-2024 Albumin [Mass/Vol] 3.6 g/dL Normal 3.2-5.0 [facility] Comment on above: Order Comment: Order Date: 11/26/24Order Info: 0786-1 - CMPOrder Info: 3016-3 - TSHOrder Info: 2284-8 - FOLS Performed By: #### L 503.6620, L100.0100 #### [facility] [address] [place], [address] Albumin/Globulin [Mass ratio] 1.0 {ratio} Normal 0.9-2.4 [facility] Comment on above: Order Comment: Order Date: 11/26/24Order Info: 0786-1 - CMPOrder Info: 6-3 - TSHOrder Info: 2283-8 - FOLS Performed By: #### L 503.6620, L100.0100 #### [facility] [address] [place], [address] ALK P 92 U/L Normal 45-117 [facility] Comment on above: Order Comment: Order Date: 11/26/24Order Info: 0786-1 - CMPOrder Info: 3016-3 - TSHOrder Info: 228-8 - FOLS Performed By: #### L 503.6620, L100.0100 #### [facility] [address] [place], [address] ALT [Catalytic activity/Vol] 19 U/L Normal 13-56 [facility] Comment on above: Order Comment: Order Date: 11/26/24Order Info: 0786-1 - CMPOrder Info: 3015-3 - TSHOrder Info: 228-8 - FOLS Performed By: #### L 503.6620, L100.0100 #### [facility] [address] [place], [address] AST [Catalytic activity/Vol] 15 U/L Normal 15-37 [facility] Comment on above: Order Comment: Order Date: 11/26/24Order Info: 86-1 - CMPOrder Info: 3 - TSHOrder Info: 228-8 - FOLS Performed By: #### L 503.6620, L100.0100 #### [facility] [address] [place], [address] Bilirubin [Mass/Vol] 0.30 mg/dL Normal 0.20-1.00 [facility] Comment on above: Order Comment: Order Date: 11/26/24Order Info: 785- - CMPOrder Info: 3015-12 - TSHOrder Info: 2284-8 - FOLS Result Comment: For patients on eltrombopag therapy, use of Dimension [place] TBIL is not recommended. Performed By: #### L 503.6620, L100.0100 #### [facility] [address] [place], [address] BUN/CRE 14.7 RATIO Normal 10-20 [facility] Comment on above: Order Comment: Order Date: 11/26/24Order Info: 785- - CMPOrder Info: 3015-12 - TSHOrder Info: 228-8 - FOLS Performed By: #### L 503.6620, L100.0100 #### [facility] [address] [place], [address] CA,Total 9.5 mg/dL Normal 8.5-10.1 [facility] Comment on above: Order Comment: Order Date: 11/26/24Order Info: 07-1 - CMPOrder Info: 3015-12 - TSHOrder Info: 2284-8 - FOLS Performed By: #### L 503.6620, L100.0100 #### [facility] [address] [place], [address] Chloride [Moles/Vol] 107 mmol/L Normal 98-107 [facility] Comment on above: Order Comment: Order Date: 11/26/24Order Info: 0786-1 - CMPOrder Info: 63 - TSHOrder Info: 2284-05 - FOLS Performed By: #### L 503.6620, L100.0100 #### [facility] [address] [place], [address] CO2 [Moles/Vol] 29.0 mmol/L Normal 21.0-32.0 [facility] Comment on above: Order Comment: Order Date: 11/26/24Order Info: 0786-1 - CMPOrder Info: 3 - TSHOrder Info: 2284-05 - FOLS Performed By: #### L 503.6620, L100.0100 #### [facility] [address] [place], [address] Creatinine [Mass/Vol] 1.09 mg/dL High 0.55-1.02 [facility] Comment on above: Order Comment: Order Date: 11/26/24Order Info: 0786-1 - CMPOrder Info: 3 - TSHOrder Info: 8 - FOLS Result Comment: The validity of the calculated GFR GFRAA in patients over 70 years has not been determined. Clinical correlation is essential. Performed By: #### L 503.6620, L100.0100 #### [facility] [address] [place], [address] EST GFR - AA 61 mL/min Normal >60 [facility] Comment on above: Order Comment: Order Date: 11/26/24Order Info: 0786-1 - CMPOrder Info: 6-3 - TSHOrder Info: 2283-8 - FOLS Result Comment: Afri can Panamanian GFR Calc Performed By: #### L 503.6620, L100.0100 #### [facility] [address] [place], [address] GAP 5 Normal 5-15 [facility] Comment on above: Order Comment: Order Date: 11/26/24Order Info: 0786-1 - CMPOrder Info: 6-3 - TSHOrder Info: 228-8 - FOLS Performed By: #### L 503.6620, L100.0100 #### [facility] [address] [place], [address] GFR/1.73 sq M.predicted among non-blacks MDRD (S/P/Bld) [Vol rate/Area] 50 mL/min/{1.73_m2} Low >60 [facility] Comment on above: Order Comment: Order Date: 11/26/24Order Info: 0786-1 - CMPOrder Info: 3015-3 - TSHOrder Info: 8 - FOLS Result Comment: Non- GFR Calc Performed By: #### L 503.6620, L100.0100 #### [facility] [address] [place], [address] Globulin (S) [Mass/Vol] 3.7 g/dL Normal 2.2-4.2 [facility] Comment on above: Order Comment: Order Date: 11/26/24Order Info: 0786- - CMPOrder Info: 3 - TSHOrder Info: 8 - FOLS Performed By: #### L 503.6620, L100.0100 #### [facility] [address] [place], [address] Glucose [Mass/Vol] 103 mg/dL Normal 74-106 [facility] Comment on above: Order Comment: Order Date: 11/26/24Order Info: 0786-1 - CMPOrder Info: 3015-3 - TSHOrder Info: 228-8 - FOLS Result Comment: Fast ing Glucose result from 100 to 125 mg/dL suggests IMPAIRED HOMEOSTASIS per A.D.A. criteria. Performed By: #### L 503.6620, L100.0100 #### [facility] [address] [place], [address] Potassium [Moles/Vol] 3.9 mmol/L Normal 3.5-5.1 [facility] Comment on above: Order Comment: Order Date: 11/26/24Order Info: 86-1 - CMPOrder Info: 3 - TSHOrder Info: 2284-8 - FOLS Performed By: #### L 503.6620, L100.0100 #### [facility] [address] [place], [address] Sodium [Moles/Vol] 141 mmol/L Normal 136-145 [facility] Comment on above: Order Comment: Order Date: 11/26/24Order Info: 785- - CMPOrder Info: 3 - TSHOrder Info: 2284-8 - FOLS Performed By: #### L 503.6620, L100.0100 #### [facility] [address] [place], [address] T PROT 7.3 g/dL Normal 6.4-8.2 [facility] Comment on above: Order Comment: Order Date: 11/26/24Order Info: 785- - CMPOrder Info: 3 - TSHOrder Info: 2284-8 - FOLS Performed By: #### L 503.6620, L100.0100 #### [facility] [address] [place], [address] Urea nitrogen [Mass/Vol] 16 mg/dL Normal 7-18 [facility] Comment on above: Order Comment: Order Date: 11/26/24Order Info: 785-1 - CMPOrder Info: 3 - TSHOrder Info: 2284-8 - FOLS Performed By: #### L 503.6620, L100.0100 #### [facility] [address] [place], [address] Folates, (Folic Acid)on 11-04 FOLATES 5.70 ng/mL Normal 3.1-55.4 [facility] Comment on above: Order Comment: Order Date: 11/26/24Order Info: 0786-1 - CMPOrder Info: 3015-12 - TSHOrder Info: 2284-05 - FOLSN Performed By: #### L 503.6620, L100.0100 #### [facility] [address], [address] Microalb:Creat Ratio,Random URon 11-26-2024 Creatinine [Mass/Vol] 195.00 mg/dL Normal NO RANGE EST. [facility] Comment on above: Order Comment: Order Date: 11/26/24Order Info: 0779- - MIACRE Performed By: #### L 503.6620, L100.0100 #### [facility] [address] [place], [address] MALB:CRE 35.5 mg/g CRE High <30 mg/g CRE [facility] Comment on above: Order Comment: Order Date: 11/26/24Order Info: 0779- - MIACRE Performed By: #### L 503.6620, L100.0100 #### [facility] [address] [place], [address] MICROALBUMIN,UR 69.2 mg/L Normal NO RANGE EST. [facility] Comment on above: Order Comment: Order Date: 11/26/24Order Info: 0779-1 - MIACRE Performed By: #### L 503.6620, L100.0100 #### [facility] [address] [place], [address] Thyroid Stim Hormone (TSH)on 11-26-2024 TSH 2.300 uIU/mL Normal 0.358-3.74 0 [facility] Comment on above: Order Comment: Order Date: 11/26/24Order Info: 0786-1 - CMPOrder Info: 3015-12 - TSHOrder Info: 2284-05 - FOLS Performed By: #### L 503.6620, L100.0100 #### [facility] [address] [place], [address] Vitamin B12on 11-26-2024 Cobalamin (Vitamin B12) [Mass/Vol] 320 pg/mL Normal 211-911 [facility] Comment on above: Order Comment: Order Date: 11/26/24 Order Info: 9 - B12 Order Info: 41289-1 - VITD25 Performed By: #### L 502.0250, L506.1000, L503.0105, L500.4050, L100.0100, L506.0250, L501.9520 #### [facility] [address] [place], [address] Vitamin D,25 Hydroxyon 11-26 Vitamin D 25-OH 37.8 ng/mL Normal [facility] Comment on above: Order Comment: Order Date: 11/26/24 Order Info: 9 - B12 Order Info: 08559-9 - VITD25 Result Comment: Fabiola min D 25(OH) Status Range Deficiency <20 ng/mL (50nmol/L) Insufficiency 20 - 30 ng/mL (50 - 75 nmol/L) Sufficiency 30 - 100 ng/mL (75 - 250 nmol/L) Toxicity >100 ng/mL (>250 nmol/L) Performed By: #### L 502.0250, L506.1000, L503.0105, L500.4050, L100.0100, L506.0250, L501.9520 #### [facility] [address] [place], [address] HIP, UNI W/ Pelvis 2-3 Views on 07-18-2024 HIP, UNI W/ Pelvis 2-3 Views [facility] Imaging Services [address] [place] [address] HIP, UNI W/ Pelvis 2-3 Views MR#: [id number] Acct: [id number] Name: ARLIN MURRAY Rep #: [id number] : 1935 F 88 From: [place] PCP: Dr. Tawanda Muñiz MD Status: REG CLI Study: HIP, UNI W/ Pelvis 2-3 Views Date of Exam: Exam# [id number] Ordering Dr: Tawanda Muñiz MD [id number] EXAM: XR LEFT HIP WITH PELVIS WHEN [...] 18:52 EDT Reading Location ID and State: [facility] / [place] , Service support , CC: Dr. Tawanda Muñiz MD [facility] Teacher: Signed Normal [facility] CREATININE FINGERSTICKon Creatinine [Mass/Vol] 1.0 mg/dL Normal 0.55-1.02 [facility] Comment on above: Performed By: #### L 9100.0200 #### [facility] [address] [place], [place], [address] GFR/1.73 sq M.predicted among non-blacks MDRD (S/P/Bld) [Vol rate/Area] 53.0000 mL/min/{1.73_m2} Low >60 [facility] Comment on above: Performed By: #### L 9100.0200 #### [facility] [address] [place], [place], [address] CT Chest AND Abd W/ Contrast on 02-24-2024 CT Chest AND Abd W/ Contrast [facility] Imaging Services [address], [place] [address] CT Chest AND Abd W/ Contrast MR#: [id number] Acct: [id number] Name: ARLIN MURRAY Rep #: [id number] : 1935 F 88 From: Erica Nash MD PCP: Dr. Tawanda Muñiz MD Status: REG CLI Study: CT Chest AND Abd W/ Contrast Date of Exam: Exam# [id number] Ordering Dr: Elliott Kurtz DO [id number] EXAM: CT CHEST AND ABDOMEN WITH INTRAVENOUS [...] Dr. Tawanda Muñiz MD; Elliott Kurtz DO [facility] Teacher: Signed Normal [facility] Gastroenterology Visit Repor ton 01-26-2024 Gastroenterology Visit Report [facility] [address] [place] [address] OFFICE VISIT Date of Service: 01/26/24 MR#: [id number] Acct: [id number] Name: ARLIN MURRAY Rep #: [id number] : 1935 Provider: Elliott Kurtz DO Age/Sex: 88/F [facility] Status: Signed Intake Vital Signs 02/18/23 07:24 Height 4 ft 11 in Intake Visit Reasons: 6 MO FU Allergies Sulfa (Sulfonamide Antibiotics) Allergy (Verified 07/27/23 15:22) Unknown [facility] Medical History Hiatal hernia HTN (hypertension) Hypothyroid Social History Smoking Status: Never smoker HPI HPI Details: ARLIN MURRAY, is a 88 F who presents to the office today for [facility] ED 02.18.23 with rectal bleeding with one [...] Reports seeing a 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 Normal (more content not included)... Normal [facility] Absolute lymphocyte countOrd ered By: Goyo Mata on 01-13-2024 Lymphocytes Auto (Unsp spec) [#/Vol] 1.14 10*3/uL 0.83-4.51 [facility] Automated lymphocyte count a s percentage of total leukocytesOrdered By: Goyo Mata on 01-13-2024 Lymphocytes/100 WBC Auto (Unsp spec) 16.0 % 19-41 [facility] BNP,B-Type NATRIURETIC PEPTI Taran 01-13-2024 Natriuretic peptide B (Bld) [Mass/Vol] 56.4 pg/mL Normal 0-100 [facility] Comment on above: Performed By: #### L 503.6620, L100.0100 #### [facility] [address] [place] [address]. [place], [address] Basophil percentageOrdered B y: Goyo Mata on 01-13-2024 Basophils/100 WBC (Bld) 0.8 % 0-1 [facility] Eosinophils/100 WBC (Bld) 7.7 % 0-5 [facility] Hemoglobin (Bld) [Mass/Vol] 13.2 g/dL 12.0-15.0 [facility] Monocytes/100 WBC (Bld) 11.7 % 0-10 [facility] Neutrophils (Bld) [#/Vol] 4.5 10*3/uL 2.0-7.7 [facility] Neutrophils/100 WBC (Bld) 63.5 % 47-70 [facility] WBC (Bld) [#/Vol] 7.1 10*3/uL 4.4-11.0 [facility] CBC W/Diff, Automatedon 01-01 Absolute Lymph 1.14 X10 3/uL Normal 0.83-4.51 [facility] Comment on above: Performed By: #### L 503.6620, L100.0100 #### [facility] [address] [place], [address] Absolute Neut 4.5 X10 3/uL Normal 2.0-7.7 [facility] Comment on above: Performed By: #### L 503.6620, L100.0100 #### [facility] [address] [place], [address] Basophils/100 WBC (Bld) 0.8 % Normal 0-1 [facility] Comment on above: Performed By: #### L 503.6620, L100.0100 #### [facility] [address] [place], [address] Eosinophils/100 WBC (Bld) 7.7 % High 0-5 [facility] Comment on above: Performed By: #### L 503.6620, L100.0100 #### [facility] [address] [place], [address] Erythrocyte distribution width (RBC) [Ratio] 12.9 % Normal 11.6-14.6 [facility] Comment on above: Performed By: #### L 503.6620, L100.0100 #### [facility] [address] [place], [address] Hematocrit (Bld) [Volume fraction] 40.8 % Normal 37-47 [facility] Comment on above: Performed By: #### L 503.6620, L100.0100 #### [facility] [address] [place], [address] Hemoglobin (Bld) [Mass/Vol] 13.2 g/dL Normal 12.0-15.0 [facility] Comment on above: Performed By: #### L 503.6620, L100.0100 #### [facility] [address] [place], [address] IG% 0.300 Normal 0.0-0.9 [facility] Comment on above: Result Comment: IG% - Immature Granulocytes (promyelocytes, myelocytes and metamyelocytes) > 1% indicates that a LEFT SHIFT is Present. Performed By: #### L 503.6620, L100.0100 #### [facility] [address] [place], [address] Lymphocytes/100 WBC (Bld) 16.0 % Low 19-41 [facility] Comment on above: Performed By: #### L 503.20, L100.0100 #### [facility] [address] [place], [address] MCH (RBC) [Entitic mass] 31.2 pg Normal 27.0-32.0 [facility] Comment on above: Performed By: #### L 503.20, L100.0100 #### [facility] [address] [place], [address] MCHC (RBC) [Mass/Vol] 32.4 g/dL Normal 32-36 [facility] Comment on above: Performed By: #### L 503.6620, L100.0100 #### [facility] [address] [place], [address] MCV (RBC) [Entitic vol] 96.5 fL Normal 81-99 [facility] Comment on above: Performed By: #### L 503.6620, L100.0100 #### [facility] [address] [place], [address] Monocytes/100 WBC (Bld) 11.7 % High 0-10 [facility] Comment on above: Performed By: #### L 503.20, L100.0100 #### [facility] [address] [place], [address] Neutrophils/100 WBC (Bld) 63.5 % Normal 47-70 [facility] Comment on above: Performed By: #### L 503.6620, L100.0100 #### [facility] [address] [place], [address] Nucleated RBC (Bld) [#/Vol] 0 10*3/uL Normal 0-5 [facility] Comment on above: Performed By: #### L 503.20, L100.0100 #### [facility] [address] [place], [address] Platelet mean volume (Bld) [Entitic vol] 9.8 fL Normal 6.2-12.0 [facility] Comment on above: Performed By: #### L 503.20, L100.0100 #### [facility] [address] [place], [address] Platelets (Bld) [#/Vol] 264 10*3/uL Normal 150-450 [facility] Comment on above: Performed By: #### L 503.6619, L100.0100 #### [facility] [address] [place], [address] RBC (Bld) [#/Vol] 4.23 10*6/uL Normal 4.2-5.4 [facility] Comment on above: Performed By: #### L 503.20, L100.0100 #### [facility] [address] [place], [address] RDW SD 45.5 fl High 35.1-43.9 [facility] Comment on above: Performed By: #### L 503.20, L100.0100 #### [facility] [address] [place], [place], [address] WBC (Bld) [#/Vol] 7.1 10*3/uL Normal 4.4-11.0 [facility] Comment on above: Performed By: #### L 503.6620, L100.0100 #### [facility] [address] [facility] [place], [address] Chest PA and Lateralon 01-12 Chest PA and Lateral [facility] Imaging Services [address] [place] [address] Chest PA and Lateral MR#: [id number] Acct: [id number] Name: ARLIN MURRAY Rep #: [id number] : 1935 F 88 From: Kashif Reich MD PCP: Dr. Tawanda Muñiz MD Status: REG CLI Study: Chest PA and Lateral Date of Exam: 01/13/24 Exam# [id number] Ordering Dr: Goyo Mata MD [id number] EXAM: XR CHEST, 2 VIEWS CLINICAL INDICATION: [...] Tawanda Muñiz MD; Dr. Goyo Mata MD [facility] Teacher: Signed Normal [facility] Determination of erythrocyte mean corpuscular volume (MCV)Ordered By: Goyo Mata on 01-13-2024 MCV (RBC) [Entitic vol] 96.5 fL 81-99 [facility] Erythrocyte distribution wid th ratioOrdered By: Goyo Mata on 01-13-2024 Erythrocyte distribution width (RBC) [Ratio] 12.9 % 11.6-14.6 [facility] Erythrocyte distribution wid th standard deviationOrdered By: Goyo Mata on 01-13-2024 Erythrocyte distribution width (RBC) [Entitic vol] 45.5 fL 35.1-43.9 [facility] Hematocrit Auto (Bld) [Volum e fraction]Ordered By: Goyo Mata on 01-13-2024 Hematocrit (Bld) [Volume fraction] 40.8 % 37-47 [facility] Immature granulocytes/100 WB C Auto (Bld)Ordered By: Goyo Mata on 01-13-2024 Immature granulocytes/100 WBC (Bld) 0.300 % 0.0-0.9 [facility] Comment on above: IG% - Immature Granu locytes (promyelocytes, myelocytes and metamyelocytes) > 1% indicates that a LEFT SHIFT is Present. Laboratory - Chemistry and C hemistry - challengeOrdered By: Goyo Mata on 01-13-2024 Natriuretic peptide B (Bld) [Mass/Vol] 56.4 pg/mL 0-100 [facility] - Hematology and Cell countsOrdered By: Goyo Mata on 01-13-2024 MCH (RBC) [Entitic mass] 31.2 pg 27.0-32.0 [facility] MCHC (RBC) [Mass/Vol] 32.4 g/dL 32-36 [facility] Nucleated RBC/100 WBC (Bld) [Ratio] 0 % 0-5 [facility] Platelet mean volume (Bld) [Entitic vol] 9.8 fL 6.2-12.0 [facility] Platelets (Bld) [#/Vol] 264 10*3/uL 150-450 [facility] RBC Auto (Bld) [#/Vol]Ordere d By: Goyo Mata on 01-13-2024 RBC (Bld) [#/Vol] 4.23 10*6/uL 4.2-5.4 [facility] Absolute lymphocyte countOrd ered By: Tawanda Muñiz on 11-22-2023 Lymphocytes Auto (Unsp spec) [#/Vol] 1.05 10*3/uL 0.83-4.51 [facility] Automated lymphocyte count a s percentage of total leukocytesOrdered By: Tawanda Muñiz on 11-22-2023 Lymphocytes/100 WBC Auto (Unsp spec) 14.9 % 19-41 [facility] Basophil percentageOrdered B y: Tawanda Muñiz on 11-22-2023 Basophils/100 WBC (Bld) 0.7 % 0-1 [facility] Bilirubin [Mass/Vol] 0.30 mg/dL 0.20-1.00 [facility] Comment on above: For patients on eltr ombopag therapy, use of Dimension [place] TBIL is not recommended. Chloride [Moles/Vol] 106 mmol/L 98-107 [facility] Cholesterol [Mass/Vol] 203 mg/dL <200 [facility] Comment on above: <200 mg/dL Desirable 200-240 mg/dL Borderline >240 mg/dL High Risk Eosinophils/100 WBC (Bld) 7.5 % 0-5 [facility] Glucose [Mass/Vol] 77 mg/dL 74-106 [facility] Hemoglobin (Bld) [Mass/Vol] 13.0 g/dL 12.0-15.0 [facility] Monocytes/100 WBC (Bld) 9.9 % 0-10 [facility] Neutrophils (Bld) [#/Vol] 4.7 10*3/uL 2.0-7.7 [facility] Neutrophils/100 WBC (Bld) 66.7 % 47-70 [facility] Potassium [Moles/Vol] 4.0 mmol/L 3.5-5.1 [facility] Protein [Mass/Vol] 7.0 g/dL 6.4-8.2 [facility] Sodium [Moles/Vol] 140 mmol/L 136-145 [facility] WBC (Bld) [#/Vol] 7.1 10*3/uL 4.4-11.0 [facility] Determination of erythrocyte mean corpuscular volume (MCV)Ordered By: Tawanda Muñiz on 11-22-2023 MCV (RBC) [Entitic vol] 96.7 fL 81-99 [facility] Erythrocyte distribution wid th ratioOrdered By: Tawanda Muñiz on 11-22-2023 Erythrocyte distribution width (RBC) [Ratio] 12.2 % 11.6-14.6 [facility] Erythrocyte distribution wid th standard deviationOrdered By: Tawanda Muñiz on 11-22-2023 Erythrocyte distribution width (RBC) [Entitic vol] 43.7 fL 35.1-43.9 [facility] Hematocrit Auto (Bld) [Volum e fraction]Ordered By: Tawanda Muñiz on 11-22-2023 Hematocrit (Bld) [Volume fraction] 40.6 % 37-47 [facility] Immature granulocytes/100 WB C Auto (Bld)Ordered By: Tawanda Muñiz on 11-22-2023 Immature granulocytes/100 WBC (Bld) 0.300 % 0.0-0.9 [facility] Comment on above: IG% - Immature Granu locytes (promyelocytes, myelocytes and metamyelocytes) > 1% indicates that a LEFT SHIFT is Present. Laboratory - Chemistry and C hemistry - challengeOrdered By: Tawanda Muñiz on 11-22-2023 Albumin/Globulin [Mass ratio] 1.1 {ratio} 0.9-2.4 [facility] ALP [Catalytic activity/Vol] 82 U/L 45-117 [facility] ALT [Catalytic activity/Vol] 21 U/L 13-56 [facility] Cholesterol in HDL [Mass/Vol] 81 mg/dL >40 [facility] Comment on above: The drugs N-Acetylcy steine and Metamizole may falsely depress this assay. Reference Range HDL <40 mg/dL Low HDL Cholesterol HDL >or= 60 mg/dL High HDL Cholesterol CO2 [Moles/Vol] 31.0 mmol/L 21.0-32.0 [facility] Cobalamin (Vitamin B12) [Mass/Vol] 387 pg/mL 211-911 [facility] Globulin (S) [Mass/Vol] 3.3 g/dL 2.2-4.2 [facility] Urea nitrogen/Creatinine [Mass ratio] 12.5 mg/mg 10-20 [facility] - Hematology and Cell countsOrdered By: Tawanda Muñiz on 11-22-2023 MCH (RBC) [Entitic mass] 31.0 pg 27.0-32.0 [facility] MCHC (RBC) [Mass/Vol] 32.0 g/dL 32-36 [facility] Nucleated RBC/100 WBC (Bld) [Ratio] 0 % 0-5 [facility] Platelet mean volume (Bld) [Entitic vol] 10.0 fL 6.2-12.0 [facility] Platelets (Bld) [#/Vol] 235 10*3/uL 150-450 [facility] No Panel InformationOrdered By: Tawanda Muñiz on 11-22-2023 Estimated GFR (MDRD) Amer 55 mL/min >60 [facility] Comment on above: GFR Calc Estimated GFR (MDRD) Non-Af Amer 45 mL/min >60 [facility] Comment on above: Non- GFR Calc Folate 6.40 ng/mL 3.1-55.4 [facility] Vitamin D 25-Hydroxy 36.7 ng/mL [facility] Comment on above: Vitamin D 25(OH) Sta tus Range Deficiency <20 ng/mL (50nmol/L) Insufficiency 20 - 30 ng/mL (50 - 75 nmol/L) Sufficiency 30 - 100 ng/mL (75 - 250 nmol/L) Toxicity >100 ng/mL (>250 nmol/L) RBC Auto (Bld) [#/Vol]Ordere d By: Tawanda Muñiz on 11-22-2023 RBC (Bld) [#/Vol] 4.20 10*6/uL 4.2-5.4 [facility] Serum or plasma calcium sally urement (mass/volume)Ordered By: Tawanda Muñiz on 11-22-2023 Calcium [Mass/Vol] 9.4 mg/dL 8.5-10.1 [facility] Serum or plasma creatinine m easurement (mass/volume)Ordered By: Tawanda Muñiz on 11-22-2023 Creatinine [Mass/Vol] 1.20 mg/dL 0.55-1.02 [facility] Comment on above: The validity of the calculated GFR & GFRAA in patients over 70 years has not been determined. Clinical correlation is essential. Serum or plasma thyroid stim ulating hormone (TSH) measurement (units/volume)Ordered By: Tawanda Muñiz on 11-22-2023 TSH Qn 1.60 uIU/mL 0.358-3.74 [facility] Serum or plasma urea nitroge n measurement (mass/volume)Ordered By: Tawanda Muñiz on 11-22-2023 Urea nitrogen [Mass/Vol] 15 mg/dL 7-18 [facility] Thin prep Papanicolaou smear with manual screeningOrdered By: Tawanda Muñiz on 11-22-2023 Thin prep Papanicolaou smear with manual screening 3.7 g/dL 3.2-5.0 [facility] Thin prep Papanicolaou smear with manual screening 15 U/L 15-37 [facility] Thin prep Papanicolaou smear with manual screening 3 5-15 [facility] Absolute lymphocyte countOrd ered By: Dr. Muñiz on 11-08-2022 Lymphocytes Auto (Unsp spec) [#/Vol] 0.84 10*3/uL 0.83-4.51 [facility] Basophil percentageOrdered B y: Dr. Muñiz on 11-08-2022 Basophils/100 WBC (Bld) 0.9 % 0-1 [facility] Bilirubin [Mass/Vol] 0.30 mg/dL 0.20-1.00 [facility] Comment on above: For patients on eltr ombopag therapy, use of Dimension [place] TBIL is not recommended. Chloride [Moles/Vol] 103 mmol/L 98-107 [facility] Eosinophils/100 WBC (Bld) 5.2 % 0-5 [facility] Glucose [Mass/Vol] 86 mg/dL 74-106 [facility] Neutrophils (Bld) [#/Vol] 3.6 10*3/uL 2.0-7.7 [facility] Neutrophils/100 WBC (Bld) 67.7 % 47-70 [facility] Potassium [Moles/Vol] 3.9 mmol/L 3.5-5.1 [facility] Protein [Mass/Vol] 7.1 g/dL 6.4-8.2 [facility] Sodium [Moles/Vol] 137 mmol/L 136-145 [facility] WBC (Bld) [#/Vol] 5.4 10*3/uL 4.4-11.0 [facility] Blood erythrocytes count (nu mber/volume)Ordered By: Dr. Muñiz on 11-08-2022 RBC (Bld) [#/Vol] 4.17 10*6/uL 4.2-5.4 [facility] Blood hemoglobin measurement (mass/volume)Ordered By: Dr. Muñiz on 11-08-2022 Hemoglobin (Bld) [Mass/Vol] 13.0 g/dL 12.0-15.0 [facility] Blood lymphocytes/100 leukoc ytesOrdered By: Dr. Muñiz on 11-08-2022 Lymphocytes/100 WBC (Bld) 15.6 % 19-41 [facility] Blood monocytes/100 leukocyt esOrdered By: Dr. Muñiz on 11-08-2022 Monocytes/100 WBC (Bld) 10.4 % 0-10 [facility] Blood platelet mean volumeOr dered By: Dr. Muñiz on 11-08-2022 Platelet mean volume (Bld) [Entitic vol] 10.1 fL 6.2-12.0 [facility] Determination of erythrocyte mean corpuscular volume (MCV)Ordered By: Dr. Muñiz on 11-08-2022 MCV (RBC) [Entitic vol] 95.7 fL 81-99 [facility] Hematocrit Auto (Bld) [Volum e fraction]Ordered By: Dr. Muñiz on 11-08-2022 Hematocrit (Bld) [Volume fraction] 39.9 % 37-47 [facility] - Chemistry and C hemistry - challengeOrdered By: Dr. Muñiz on 11-08-2022 ALP [Catalytic activity/Vol] 77 U/L 45-117 [facility] ALT [Catalytic activity/Vol] 20 U/L 13-56 [facility] CO2 [Moles/Vol] 27.0 mmol/L 21.0-32.0 [facility] Globulin (S) [Mass/Vol] 3.4 g/dL 2.2-4.2 [facility] Urea nitrogen/Creatinine [Mass ratio] 25.4 mg/mg 10-20 [facility] - Hematology and Cell countsOrdered By: Dr. Muñiz on 11-08-2022 Erythrocyte distribution width (RBC) [Entitic vol] 44.4 fL 35.1-43.9 [facility] Erythrocyte distribution width (RBC) [Ratio] 12.6 % 11.6-14.6 [facility] Immature granulocytes/100 WBC (Bld) 0.200 % 0.0-0.9 [facility] Comment on above: IG% - Immature Granu locytes (promyelocytes, myelocytes and metamyelocytes) > 1% indicates that a LEFT SHIFT is Present. MCH (RBC) [Entitic mass] 31.2 pg 27.0-32.0 [facility] Nucleated RBC/100 WBC (Bld) [Ratio] 0 % 0-5 [facility] MCHC Auto (RBC) [Mass/Vol]Or dered By: Dr. Muñiz on 11-08-2022 MCHC (RBC) [Mass/Vol] 32.6 g/dL 32-36 [facility] No Panel InformationOrdered By: Dr. Muñiz on 11-08-2022 Estimated GFR (MDRD) Amer 69 mL/min >60 [facility] Comment on above: GFR Calc Estimated GFR (MDRD) Non-Af Amer 57 mL/min >60 [facility] Comment on above: Non- GFR Calc Thyroid Stimulating Hormone (TSH) 1.37 uIU/mL 0.358-3.74 [facility] Urine Microalbumin/Creati nine Ratio 30.8 mg/g CRE <30 [facility] Platelets bldOrdered By: Dr. Muñiz on 11-08-2022 Platelets (Bld) [#/Vol] 246 10*3/uL 150-450 [facility] Serum or plasma albumin sally urement (mass/volume)Ordered By: Dr. Muñiz on 11-08-2022 Albumin [Mass/Vol] 3.7 g/dL 3.2-5.0 [facility] Serum or plasma albumin/glob ulin mass ratioOrdered By: Dr. Muñiz on 11-08-2022 Albumin/Globulin [Mass ratio] 1.1 {ratio} 0.9-2.4 [facility] Serum or plasma calcium sally urement (mass/volume)Ordered By: Dr. Muñiz on 11-08-2022 Calcium [Mass/Vol] 9.9 mg/dL 8.5-10.1 [facility] Serum or plasma creatinine m easurement (mass/volume)Ordered By: Dr. Muñiz on 11-08-2022 Creatinine [Mass/Vol] 0.98 mg/dL 0.55-1.02 [facility] Comment on above: The validity of the calculated GFR & GFRAA in patients over 70 years has not been determined. Clinical correlation is essential. Serum or plasma urea nitroge n measurement (mass/volume)Ordered By: Dr. Muñiz on 11-08-2022 Urea nitrogen [Mass/Vol] 25 mg/dL 7-18 [facility] Thin prep Papanicolaou smear with manual screeningOrdered By: Dr. Muñiz on 11-08-2022 Thin prep Papanicolaou smear with manual screening 13 U/L 15-37 [facility] Thin prep Papanicolaou smear with manual screening 7 5-15 [facility] Thin prep Papanicolaou smear with manual screening 22.2 mg/L NO RANGE EST. [facility] Urine creatinine measurement (mass/volume)Ordered By: Dr. Muñiz on 11-08-2022 Creatinine (U) [Mass/Vol] 72.10 mg/dL NO RANGE EST. [facility] CNOVon 09-01-2018 CNOV Office Visit (CAWSTR) ARLIN WISEMAN SE ([id number]) 1935 [facility] Time Provider Mspnkqliks78/30/18 10:30 AM EMERALD GARZAWSTR During your visit [...] - N/ABeta palmer for ASHD with prior RI or prior LVEF<40 (NQF 0070) - N/ABeta [...] plan.DIAGNOSIS FOR VISIT:Chest painHypertensionHISTORY OF PRESENT ILLNESSArlin Murray returns for follow-up [...] function is normal. TSH was normal. LDL qxd582.Recent carotid Doppler shows mild left carotid disease.EKG shows sinus rhythm and is within normal limits. There is no significantchange.Electronicall y Signed:Emerald Garza MDNovember 2017 11:18 [facility]: Beth Mack MD 09/01/2018 11:18 AM SignedLIFESTYLE [...] and ekg faxed to Dr. Muñiz at [phone] with fax confirmationBee Barnes MA 09/01/2018 3:26 PM SignedAddended by: ALLISON BARNES MA on: 09/01/2018 03:26 PM Modules accepted: Soto Garza MD 09/01/2018 3:58 PM SignedAddended by: EMERALD GARZA MD on: 09/01/2018 03:58 PM Modules accepted: OrdersReferring Provider: EMERALD GARZA [[id number]]Allergies As of Date: 09/01/2018 Noted Allergy ReactionDAIRY [...] [I10]Order(s):ECG COMPLETE W INTERPRETATION [ECG01] Order #: [id number] FUTUREPrescriptions as of 09/01/2018 Sig: LISINOPRIL 10 [...] the following areas and commit to making residential changes. EAT A WHOLE FOOD, PLANT BASED [...] and ekg faxed to Dr. Muñiz at [phone] with faxconfirmaDonna Iraheta RNFollow-up and Disposition History RecordedEncounter Number: [id number] Status:Closed by EMERALD GARZA MD on 09/01/18 Normal [facility] EKG1on 09-01-2018 Protein mass conc NAME : ARLIN MURRAY PID : [id number] : 1935 Gender : FemaleRace : CaucasianORD : Procedure Date : Sep 01 2018 11:43:45Edit Date : Sep 02 2018 08:02:06 Diagnosis:NORMAL SINUS RHYTHMNORMAL ECGConfirmed by EMERALD GARZA MD ([id number]) on 09/02/2018 8:02:01 AM Ventricular Rate : 74 BPMAtrial Rate : 74 BPMP-R Interval : 136 msQRS Duration : 78 msQ-T Interval : 374 msQTC Calculation(Bezet) : 415 msP Bruneau : 37 degreesR Bruneau : -12 degreesT Bruneau : 5 degrees Test Reason : Location : 136 : [place] Overread By : GREG GILBERT,KENNETHEdited By : GREG GILBERT,RICHINETHReferred By : GREG,Acquired by : Naldo FAM [facility] PROGRESSon 09-01-2018 Protein mass conc HNO ID: [id number] thor: Emerald Lepe: (none)Author Type: PhysicianType: Progress NotesFiled: 09/01/2018 1:10 PMNote Text:PERTINENT CARDIAC HISTORYHTNDOEChest pain - normal cathHL - declines statinCarotid disease - mildADHERENCE TO GUIDELINESACE-I or ARB for HF with prior LVEF<40 (NQF 0081) - N/AASA or Plavix for ASHD (NQF 0067) - N/ABeta palmer for ASHD with prior RI or prior LVEF<40 (NQF 0070) - N/ABeta [...] is nosignificant change.Electronically Signed:Emerald Garza MDNov2017 11:18 [facility]: Tawanda Muñiz MD Normal [facility] CNOVon 12-01-2017 CNOV Office Visit (FAMPWS) ARLIN WISEMAN SE ([id number]) 1935 FDate Time Provider Department12/01/17 11:20 AM [...] PAST SURGICAL HISTORY OF retinal tear repair- FL ANESTH,RADICAL HYSTERECTOMY- REMV 2ND CATARACT,CORN-SCLER SECTN Cataract [...] US LEG VEIN DVT [facility] [[id number]] Order #: [id number] FUTUREPrescriptions as of 12/01/2017 Sig: FLUTICASONE 250 [...] STOCKINGS 20-30 MM . DX: EDEMAEncounter Number: [id number] Status:Closed by YAMILET LANIER MD on 12/01/17 [facility] 12-01-2017 Protein mass conc HNO ID: [id number] thor: Yamilet Zhu) Danitza: (none)Author Type: PhysicianType: [...] PAST SURGICAL HISTORY OF retinal tear repair- FL ANESTH,RADICAL HYSTERECTOMY- REMV 2ND CATARACT,CORN-SCLER SECTN Cataract [...] I83.93See above.- COMPOUNDED PRESCRIPTIONChristopher Rubén Lanier MD [facility] PROGRESSon 11-16-2017 Protein mass conc HNO ID: [id number] thor: Amairani Angeles (Chief Design Engineer) MAIKEL ColonService: (none)Author Type: Nurse PractitionerType: Progress [...] PAST SURGICAL HISTORY OF retinal tear repair- FL ANESTH,RADICAL HYSTERECTOMY- REMV 2ND CATARACT,CORN-SCLER SECTN Cataract [...] symptoms occur. Patient agreeable to treatment plan.Amairani Cloon CNP Normal [facility] HISTORY PHYSICALon 8 HISTORY PHYSICAL HNO ID: [id number] thor: Lisa (Chief Design Engineer) ThorpeService: (none)Author Type: Nurse PractitionerType: HANDPFiled: 11/03/2017 [...] HISTORYProcedure Laterality Date- COLONOSCOP W/ OR W/O [facility] SPEC 01/17/2007 Colonoscopy- EGD W/O OR W/BRUSH/WASH 11/16/2011 EGD- EGD W/O OR W/BRUSH/WASH 11/01/13 EGD- EGD W/O OR W/BRUSH/WASH 10/16/15 EGD- PAST SURGICAL HISTORY OF retinal tear repair- FL ANESTH,RADICAL HYSTERECTOMY- REMV 2ND CATARACT,CORN-SCLER SECTN Cataract [...] the patient, discussion and counseling.Lisa Lo RN [facility] OBSOLETEon 10-25-2017 OBSOLETE Refill (INTMWS) IVONE ARLIN SWEET ([id number]) 1935 FDate Time Provider Department10/25/17 YAMILET LANIER) [...] - ItchingDate Reviewed: 09/09/2017Reviewed by: Amairani Angeles (Chief Design Engineer) MAIKEL Colon - Fully AssessedReason for Visit: [...] by YAMILET LANIER MD on 10/25/17 Normal [facility] CNOVon 09-01-2017 CNOV Office Visit (AGCARDWST) ST COLONARLIN SWEET ([id number]) 1935 [facility] Time Provider Xbitcpnxvj81/30/17 3:00 PM EMERALD GARZA During your visit today, we recorded the following information about you: Pulse Blood pressure Weight 76/minute 145/91 53.3 kgEmerald Garza MD 09/01/2017 3:46 PM SignedPERTINENT CARDIAC HISTORYHTNDOEChest pain - normal cathADHERENCE TO GUIDELINESACE-I or ARB for HF with prior LVEFANDlt;40 (NQF 0081) - N/AASA or Plavix for ASHD (NQF 0067) - N/ABeta palmer for ASHD with prior RI or prior LVEFANDlt;40 (NQF 0070) - N/ABeta [...] with treatment plan.This note was generated using SKINNYprice voice recognition system, and there may besome [...] 107Electronically Signed:Emerald Garza MDSeptember 01, 2017 3:22 [facility] Beth Lee MD 09/01/2017 3:23 PM SignedLIFESTYLE [...] about programs in your area.Referring Provider: EMERALD GARZA [[id number]]Allergies As of Date: 09/01/2017 Noted Allergy ReactionDAIRY [...] W INTERP (MED OFFICE) [ECG06] Order #: [id number] as of 09/01/2017 Sig: OMEPRAZOLE 20 MG [...] the following areas and commit to making residential changes. EAT A WHOLE FOOD, PLANT BASED [...] your area.Follow-up and Disposition History RecordedEncounter Number: [id number] Status:Closed by EMERALD GARZA MD on 09/01/17 Normal [facility] PROGRESSon 09-01-2017 PROGRESS HNO ID: [id number] thor: Emerald Lepe: (none)Author Type: PhysicianType: Progress NotesFiled: 09/01/2017 3:46 PMNote Text:PERTINENT CARDIAC HISTORYHTNDOEChest pain - normal cathADHERENCE TO GUIDELINESACE-I or ARB for HF with prior LVEF<40 (NQF 0081) - N/AASA or Plavix for ASHD (NQF 0067) - N/ABeta palmer for ASHD with prior RI or prior LVEF<40 (NQF 0070) - N/ABeta [...] with treatment plan.This note was generated using Picsean recognition system, and theremay be some incorrect [...] MDNovember 2016 3:22 PMCC: Yamilet Lanier MD [facility] Encounters Encounter Date Encounter Type Care Provider Facility Start: 11-26-2024 End: 11-26-2024 ambulatory [facility] Facility:[facility] Start: 07-18-2024 End: 07-18-2024 ambulatory [facility] Facility:[facility] Start: 02-24-2024 End: 02-24-2024 ambulatory [facility] Facility:[facility] Start: 01-26-2024 End: 01-26-2024 ambulatory [facility] Facility:[facility] Start: 01-13-2024 End: 01-13-2024 ambulatory [facility] Work Phone: Start: 01-13-2024 End: 01-13-2024 Patient encounter procedure [facility] Work Phone: Start: 01-13-2024 End: 01-13-2024 ambulatory Goyo Mata Facility:[facility] Start: 11-22-2023 End: 11-22-2023 ambulatory [facility] Work Phone: Start: 11-22-2023 End: 11-22-2023 Patient encounter procedure [facility] Start: 11-08-2022 End: 11-08-2022 ambulatory [facility] Work Phone: Start: 11-08-2022 End: 11-08-2022 Patient encounter procedure [facility] Start: 09-15-2022 End: 09-15-2022 ambulatory [facility] Work Phone: Start: 09-15-2022 End: 09-15-2022 Patient encounter procedure [facility], [facility] Start: 09-01-2018 End: 09-04-2018 Ambulatory EMERALD GARZA Facility:[facility] Start: 12-05-2017 End: 12-05-2017 Patient encounter procedure YAMILET ZHU) [facility] Start: 12-01-2017 End: 12-02-2017 Patient encounter procedure YAMILET ZHU) [facility] Start: 11-16-2017 End: 11-18-2017 Patient encounter procedure [facility] Start: 11-03-2017 End: 11-03-2017 Patient encounter procedure LISA (HOSP[facility] CARRIER) [facility] Start: 09-01-2017 Ambulatory EMERALD Peck G[facility] Procedures Date Procedure Procedure Detail Performing Clinician Start: 01-13-2024 Plain chest X-ray Start: 09-15-2022 X-ray of lumbar spin e, two or three views Immunizations Immunization Date Immunization Notes Care Provider Marlena mondragon 12-25-2020 Covid (Pfizer) [facility] 12-04-2020 Covid (Pfizer) [facility] 05-05-2019 tetanus toxoid, redu kaur diphtheria toxoid, and acellular pertussis vaccine, adsorbed [facility] Payers Date Payer Category Payer Self-pay [id number] 2006 Unknown [id number] 2000 Medicare [id number] Medicare [id number] Unknown [id number] 2.16.8 [id number] Unknown [id number] 2.16.8 [id number] Unknown [id number] 2.16.8 [id number] Unknown [id number] 2.16.8 [id number] Unknown [id number] 2.16.8 [id number] Social History Date Type Detail Facility Start: 05-05-2019 End: 07-27-2023 Tobacco smoking status OKIS Unknown if ever smoked [facility] Start: 10-26-2021 None [facility] Start: 03-20-2019 Non-smoker [facility] Start: 1935 Sex Assigned At Female [facility] Medical Equipment Procedure Code Equipment Code Equipment Origin al Text Equipment Identifier Dates Kyphoplasty ORQUIDEA KYPHO AUTOPLEX FDA Start: 03-23-2019 Kyphoplasty ORQUIDEA KYPHO AUTOPLEX FDA Start: 03-23-2019 Kyphoplasty ORQUIDEA KYPHO AUTOPLEX FDA Start: 03-23-2019 Kyphoplasty ORQUIDEA KYPHO AUTOPLEX FDA Start: 03-23-2019 Evaluation note Note Date & Type Note Facility Evaluation note No assessment information availa ble [facility] Work Phone: Summary Purpose Family History No Family History Records FoundNo Family History Records FoundNo Family History Records FoundNo Family History Records Found Advance Directives No Advanced Directives Records Found Advance Directive Response Recorded Date/ Time Living Will No May 05, 2019 8:20am Power of Grain Scooper No May 05 8:20am Advance Directive Response Recorded Date/ Time Living Will No February 18, 2023 7 :09am Power of Grain Scooper No February 18, 2023 7:09am Advance Directive Response Recorded Date/ Time Living Will No February 18, 2023 8 :09am Power of Grain Scooper No February 18, 2023 8:09am Chief Complaint and Reason for Visit Chief Complaint BACK PAIN Chief Complaint Shortness of breath Additional Source Comments INFORMATION SOURCE (unrecogn ized section and content) DATE CREATED AUTHOR 03/28/2018 [facility] DATE CREATED AUTHOR AUTHOR'S ORGANIZ ATION 03/28/2018 [facility] DATE CREATED AUTHOR AUTHOR'S ORGANIZ ATION 09/11/2018 [facility] DATE CREATED AUTHOR AUTHOR'S ORGANIZ ATION 12/08/2024 [facility] Goals (unrecognized section and content) Goals [...] BE BASED ON THE PRIMARY CLINICAL RECORDS. [employer] provides no warranty or guarantee of the accuracy or completeness of information in this document.
[2025-03-15] VITALS (7 sets, daily range): BP systolic 125–155; BP diastolic 67–75; PULSE 55–90; RESP 16–18; TEMP 36.2–36.9; O2SAT 94–96; BMI 20.9
--- NOTE | 2025-03-15 00:06 | ECHOD_ITS ---
Reason For Study Reason For Study: Chest pain Procedure This was a 2D Doppler, Color Flow transthoracic echocardiogram. Exam performed in department. Left Ventricle Normal left ventricle. Left ventricular systolic function is normal. The LV ejection fraction is 55 %. Grade 1 diastolic dysfunction. No regional wall motion abnormalities noted. Right Ventricle Normal right ventricle. Normal systolic function. Atria Normal left atrium. Normal right atrium. Mitral Valve There is no stenosis. Mild (1+) mitral valve insufficiency. Tricuspid Valve Moderate (2+) tricuspid valve insufficiency. Aortic Valve There is no aortic stenosis. Trivial aortic valve insufficiency. Great Vessels Normal aortic root dimension. Pericardium/Pleural Trivial pericardial effusion. MMode/2D Measurements & Calculations LVIDd: 4.5 cm IVSd: 0.78 cm LVOT diam: 1.9 cm LVIDs: 2.3 cm LVPWd: 0.92 cm LVOT area: 3.0 cm2 RVDd: 3.5 cm FS: 49.1 % Ao root diam: 3.1 cm LAV(MOD-bp): 39.2 ml LVAd ap4: 16.9 cm2 LAV(MOD-bp) Indexed: 28.2 ml/m2 LVLd ap4: 6.4 cm LAV(MOD-sp2): 43.8 ml EDV(MOD-sp4): 37.7 ml LAV(MOD-sp4): 34.4 ml EDV(sp4-el): 38.2 ml LVAs ap4: 10.1 cm2 LVLs ap4: 5.6 cm ESV(MOD-sp4): 15.3 ml ESV(sp4-el): 15.3 ml EF(MOD-sp4): 59.3 % EF(sp4-el): 59.8 % SV(MOD-sp4): 22.3 ml SV(MOD-sp2): 25.2 ml LVAd ap2: 17.9 cm2 LVLd ap2: 6.2 cm SI(MOD-sp4): 16.1 ml/m2 SI(MOD-sp2): 18.1 ml/m2 EDV(MOD-sp2): 42.9 ml EDV(sp2-el): 44.2 ml LVAs ap2: 10.8 cm2 LVLs ap2: 5.7 cm ESV(MOD-sp2): 17.6 ml ESV(sp2-el): 17.4 ml EF(MOD-sp2): 58.9 % SV(sp4-el): 22.9 ml LA A4 area: 14.6 cm2 LA dimension(2D): 3.2 cm TAPSE: 1.8 cm RA A4 area: 13.4 cm2 Time Measurements MV dec time: 0.26 sec Doppler Measurements & Calculations MV E max erick: 68.7 cm/sec Lat Peak E' Erick: 7.7 cm/sec Med Peak E' Erick: 4.9 cm/sec MV A max erick: 94.8 cm/sec E/E' lat: 8.9 E/E' med: 14.1 MV E/A: 0.72 MV dec slope: 263.5 cm/sec2 Ao V2 max: 140.6 cm/sec LV V1 max: 85.3 cm/sec Ao max P.9 mmHg LV V1 max P.9 mmHg Ao V2 mean: 93.4 cm/sec LV V1 mean P.5 mmHg Ao mean P.0 mmHg LV V1 mean: 57.3 cm/sec Ao V2 VTI: 36.9 cm LV V1 VTI: 22.9 cm AV (velocity ratio): 0.62 HEATHER(I,D): 1.8 cm2 HEATHER(V,D): 1.8 cm2 SV(LVOT): 68.2 ml PA V2 max: 66.5 cm/sec TR max erick: 259.4 cm/sec TR max P.9 mmHg ECHO/Echo Complete Interpretation Summary The LV ejection fraction is 55 %. Left ventricular systolic function is normal. Grade 1 diastolic dysfunction Mild (1+) mitral valve insufficiency. Moderate (2+) tricuspid valve insufficiency. Ordering Physician: Ely Persaud Referring Physician: Tawanda Muñiz MD Performed By: Mercedes López RDCS
[2025-03-15] MEDS: Lactated Ringers 1,000 ML 100 ML IV (00:35)
[2025-03-15] MEDS: Heparin Injection (Vial) 5,000 UNIT/ML VIAL 5000 UNIT SC (00:35)
[2025-03-15] MEDS: Metoprolol Tartrate 25 MG Tablet PO ×2 (00:35→11:10)
[2025-03-15 05:21] LABS: Hematocrit 32.8 % (37-47); Hemoglobin 10.8 g/dL (12.0-15.0); Mean Corp Hgb Conc 32.9 g/dL (32-36); Mean Corpuscular Hgb 31.3 pg (27.0-32.0); Mean Corpuscular Volume 95.1 fL (81-99); Mean Platelet Vol. 9.9 fl (6.2-12.0); Platelet Count 163 K/mm3 (150-450); RBC Distribution Width CV 12.1 % (11.6-14.6); RBC Distribution Width SD 41.9 fl (35.1-43.9); Red Blood Count 3.45 M/mm3 (4.2-5.4)
[2025-03-15] MEDS: Levothyroxine 50 MCG Tablet PO (06:14)
[2025-03-15] MEDS: Aspirin E.C. 81 MG Tablet PO (06:14)
[2025-03-15 07:08] LABS: ALB/GLOB Ratio 1.8 RATIO (0.9-2.4); AST(SGOT) 14 U/L (<=31); Alanine Aminotransfer ALT/SGPT 9 U/L (<=34); Albumin, Serum 3.6 g/dL (3.4-4.8); Alkaline Phosphatase 67 U/L (35-104); Anion Gap 10 (5-15); BUN 20 mg/dL (4-19); BUN/Creat Ratio 13.1 RATIO (10-20); Calcium,Total 9.2 mg/dL (7.6-11.0); Carbon Dioxide 23.4 mmol/L (21.0-32.0); Chloride 107 mmol/L (98-108); Creatinine, Serum 1.55 mg/dL (0.70-1.20); EST Glomerular Filtration Rate 32 (>60); Estimated Creatinine Clearance 17.67 ml/min (50-250); Glucose 85 mg/dL (70-99); Lipase 80 U/L (13-75); Phosphorus 3.3 mg/dL (2.7-4.5); Potassium 4.3 mmol/L (3.3-5.1); Protein, Total 5.6 g/dL (5.9-8.4); Sodium Level 140 mmol/L (133-145); Total Bilirubin 0.43 mg/dL (0.00-1.30)
--- NOTE | 2025-03-15 14:13 | STRESSREP ---
Stress Test Report Pharmacologic myocardial perfusion stress test. 89-year-old woman who presents with chest pain Resting EKG demonstrates [normal sinus rhythm] with a rate of [62] bpm. Resting blood pressure is [110/60] mmHg. 0.4 mg of regadenoson was infused per usual protocol followed by rapid intravenous saline flush injection. Continuous EKG monitoring was performed. The maximum heart rate was [70] bpm which was [53% ]of max impacted heart rate the maximum workload was 1 metabolic equivalent. At rest there were no ST or T wave changes noted to suggest ischemia and at peak infusion nonspecific ST changes were noted which did not meet the criteria for ischemia. No clinical angina is noted. The final blood pressure was [110/60]mmHg. Myocardial perfusion protocol. [11.9 ] mCi of technetium 99m sestamibi was injected at rest. 0.4 mg of regadenoson was infused per usual protocol. At peak infusion [36] mCi of technetium 99m sestamibi was injected stress images were obtained stress and rest images were reconstructed and compared in the short axis vertical long and horizontal long axis. Gated images were also obtained. Perfusion SPECT analysis: Review of the stress images demonstrate normal uptake of tracer noted in all areas of the myocardium. The resting images similar demonstrated normal uptake of tracer noted in all areas of the myocardium. There is significant artifact/GI radiotracer uptake. Rest and stress images showed both show defect in the septal wall however with normal wall motion This s may be secondary to an infarct versus artifact. Given normal wall motion this is likely secondary to artifact. clinical correlation strongly recommended. Gated SPECT analysis: The gated ejection fraction is [81%]. Conclusion: [Possibly abnormal pharmacologic myocardial perfusion stress test. [Hyperdynamic] ejection fraction.
--- NOTE | 2025-03-15 15:08 | CASEMGMT ---
Met with patient to complete SANTIAGO form. SANTIAGO form and its content were verbally explained and patient's questions were answered to the best of my ability.? Patient voiced understanding and signed SANTIAGO form.? Patient provided a copy of signed SANTIAGO form and original placed in patient's chart.? Patient had no further questions. Bibiana Grififn, Discharge Planning Asst
--- NOTE | 2025-03-15 15:23 | CHAPLAIN ---
Type of Pastoral Visit _x__ Initial Visit ___ Follow-up Visit ___ On-call Visit ___ General Patient Visit ___ Spiritual Assessment ___ Family Conference ___ Bereavement ___ Rapid Response ___ Code Blue ___ Other (describe below) Pastoral Care Referral From _x__ Patient ___ Family ___ Nurse ___ Physician ___ Assistant Professor Of Physics ___ Pharmacy Technician Per Diem ___ Other (describe below) Sacrament/Intervention _x__ Active listening ___ Anointing ___ Caodaism ___ Bereavement ___ Communion ___ Juliane exploration ___ ___ Life review ___ Prayer ___ Reconciliation ___ Sacrament of Sick ___ Supportive presence ___ Wedding ___ Other (describe below) Pastoral Comments patient reports feeling much better and is 'just waiting to get the results so I can go home'; pt's daughter is with her for support; pt denies having other needs
--- NOTE | 2025-03-15 16:43 | CASEMGMT ---
DANIEL SIDDIQUI note: DANIEL SIDDIQUI to room. Pt resting in bed, daughter @ bedside. Pt and dtr deny having any discharge needs or concerns. Dtr will take pt home tonight and will stay w/her overnight. Pt may then be going to her daughter's home to stay w/her for a short time, but her daughter lives about 6 1/2 hrs away and they are working out the details about this. Jamia URIAS RN CM
--- NOTE | 2025-03-15 16:53 | PCM.DC ---
Discharge Instructions Diet Discharge Diet: No restrictions DC O2, CPAP, BIPAP needs Home O2 Discharge instructions: No Dressing / Incision Discharge Activity: No Restrictions Follow Up Care Test Results: Test results from this visit will be discussed in further detail at your follow-up appointment, if applicable. Discharge Plan Admission Admit Date/Time: 03/14/25 21:33 Primary Reason for Your Visit: chest pain Attending Provider: Christian Negrete Primary Care Provider: Tawanda Muñiz Consulting Providers: Ely Persaud Discharge Orders/Prescriptions Prescriptions: Continued fluticasone propion-salmeterol [Advair Diskus] 1 PUFF inhaler 1 puff inhalation BID levothyroxine 25 MCG tablet 50 mcg PO DAILY Omeprazole [Prilosec] 40 MG capsule 20 mg PO DAILY docusate sodium 100 MG capsule 100 mg PO DAILY Held lisinopril 20 MG tablet 20 mg PO DAILY Hold Instructions: Resume on 03/20/25. Hold until follow up labs are drawn. If your kidney function returns to normal, please resume. Other Ambulatory Orders: Basic Metabolic Profile (BMP) (Routine) Timeframe: 5 Days Facility: [facility] - Location: Laboratory Ordered By: Dr. Christian Negrete Referrals / Follow Up: Tawanda Muñiz MD [Primary Care Provider] - Disposition Disposition (needs filled in before D/C Order can be placed): Home, Self Care
--- NOTE | 2025-03-15 16:53 | PCM.DC.SUM ---
Providers Date of Admission: 03/14/25 Date of Discharge: 03/15/25 Primary Care Physician: Dr. Tawanda Muñiz MD Reason For Visit: ELEVATED TROPONIN/EKG CHANGES Diagnosis Discharge Diagnosis (1) RAFI (acute kidney injury): Status: Acute Code(s): N17.9 - Acute kidney failure, unspecified Medications at Discharge Home Medications Omeprazole [Prilosec] 20 mg PO DAILY 12/06/13 fluticasone 250 mcg-salmeterol 50 mcg/dose blistr powdr for inhalation (Advair Diskus) 1 puff inhalation BID 12/06/13 levothyroxine 25 mcg tablet 50 mcg PO DAILY 12/06/13 docusate sodium 100 mg capsule 100 mg PO DAILY 03/20/19 lisinopril 20 mg tablet 20 mg PO DAILY 03/20/19 Held on 03/15/25. Instructions: Resume on 03/20/25. Hold until follow up labs are drawn. If your kidney function returns to normal, please resume. Hospital Course Operations None Procedures EKG, Stress test, Transthoracic echo and - (Chest x-ray, CT abdomen pelvis) Summary of Care Provided Minutes Spent on Discharge: 35 Hospital Course: Patient is an 89-year-old female who presented to [facility] ED on 03/14/2025 with chest pain. Short hospital course as noted below. Patient discharged home in stable condition on 03/15. 1. Chest pain, ACS ruled out ? Presented with chest pain. Had ST depressions in leads V4 through V6 on admission. Notably ST depressions resolved with symptom resolution. Troponin trend 25 > 23. Chest x-ray unremarkable. Stress test on 03/15 normal. Echo with EF 60%, no significant valvular disease, no other concerning findings. Patient with full symptom resolution on evening of admission and no recurrence of symptoms. Stable for discharge home on 03/15. 2. RAFI, improving ? Creatinine 1.70 on admit, baseline around 1.2. Slightly improved to 1.55 on day of discharge. Suspect mild dehydration in setting of recent poor p.o. intake. Encouraged patient to push fluid intake over the next several days. Repeat BMP ordered for mid next week. Recommended that patient hold lisinopril until then and if kidney function normalizes, will be okay to resume home lisinopril. 3. Elevated lipase, resolved ? Lipase elevated to [address] abdomen pelvis without contrast with no concerning findings. Lipase much improved to 80 on hospital day 2. Unclear significance of elevated lipase but no need for further evaluation at this time. 4. Concern for pericardial effusion ? Chest x-ray did note concern for pericardial effusion. However, echo on 03/15 showed only trivial pericardial effusion. No further workup needed. Chronic medical conditions: ? Essential hypertension: Hold home lisinopril until repeat BMP is done and if kidney function normalizes, will be okay to resume. ? Hypothyroidism: TSH normal. Continue home Synthroid. ? GERD/hiatal hernia: Continue home PPI. ? Chronic constipation: Continue home docusate. ? Asthma: Stable during admission on room air, not in acute exacerbation. Continue home Advair. Total clinical time spent by myself addressing the patient's medical issues, reviewing all the data, and collaborating with patient's care team: 35 minutes. Physical Exam Const alert, oriented x3, no apparent distress, average body habitus, healthy appearing and well nourished General Appearance: cooperative, comfortable, well kempt and well developed HEENT normocephalic, head/scalp atraumatic, hearing grossly normal bilaterally, nasal mucous membranes and turbinates normal and moist oral mucous membranes Eyes PERRL, EOMs intact bilaterally and conjunctivae normal Neck full ROM Chest inspection of chest normal Resp normal respiratory effort, normal air movement, no use of accessory muscles and clear to auscultation bilaterally Cardio regular rate, regular rhythm, no murmurs and peripheral pulses 2+ throughout GI normal to inspection, nondistended, normoactive bowel sounds, soft to palpation, non-tender and non-distended Back/Spine normal ROM Extremity normal to inspection, full ROM and no pedal edema Skin no rashes or lesions noted Psych mental status grossly normal Weight / BMI Weight Weight: 46.9 kg Body Mass Index (BMI) 20.9 ABG / Lab / Microbiology Data 03/15/25 04:54 03/15/25 04:54 Laboratory: Laboratory Results - last 24 hr 03/14/25 17:15: WBC 7.3, RBC 4.15 L, Hgb 13.1, Hct 38.9, MCV 93.7, MCH 31.6, MCHC 33.7, RDW Std Deviation 41.7, RDW Coeff of Helen 12.0, Plt Count 216, MPV 10.3, Immature Gran % (Auto) 0.100, Neut % (Auto) 71.2 H, Lymph % (Auto) 12.6 L, [place] % (Auto) 11.5 H, Eos % (Auto) 3.6, Baso % (Auto) 1.0, Absolute Neuts (auto) 5.2, Absolute Lymphs (auto) 0.92, Nucleated RBC % 0, PT 12.1, INR 0.9, APTT 25.0, D-Dimer Quant (PE/DVT) 0.58 H*, Sodium 139, Potassium 4.7, Chloride 103, Carbon Dioxide 24.1, Anion Gap 12, BUN 23 H, Creatinine 1.70 H, Estim Creat Clear Calc 16.11 L, Est GFR (MDRD) Non-Af 28 L, BUN/Creatinine Ratio 13.6, Glucose 114 H, Calcium 10.1, Total Bilirubin 0.26, AST 19, ALT 12, Alkaline Phosphatase 86, Troponin T High Sens 25 H, NT pro BNP II 116, Total Protein 7.2, Albumin 4.4, Globulin 2.7, Albumin/Globulin Ratio 1.6, Lipase 330 H, TSH 1.710 03/14/25 19:20: Troponin T Hi Sens 2 Hr 23 H 03/14/25 20:19: Urine Color Yellow, Urine Clarity Clear, Urine pH 6.0, Ur Specific [place] 1.010, Urine Protein 15 H, Urine Glucose (UA) Normal, Urine Ketones Negative, Urine Occult Blood Negative, Urine Nitrite Negative, Urine Bilirubin Negative, Urine Urobilinogen Normal, Ur Leukocyte Esterase 100 H, Urine RBC 0-5 SEEN, Urine WBC 5-10 SEEN, Ur Squamous Epith Cells 0-5 SEEN, Urine Bacteria 0 SEEN, Urine Mucus 0 SEEN 03/15/25 04:54: WBC 5.0, RBC 3.45 L, Hgb 10.8 L, Hct 32.8 L, MCV 95.1, MCH 31.3, MCHC 32.9, RDW Std Deviation 41.9, RDW Coeff of Helen 12.1, Plt Count 163, MPV 9.9, Sodium 140, Potassium 4.3, Chloride 107, Carbon Dioxide 23.4, Anion Gap 10, BUN 20 H, Creatinine 1.55 H, Estim Creat Clear Calc 17.67 L, Est GFR (MDRD) Non-Af 32 L, BUN/Creatinine Ratio 13.1, Glucose 85, Calcium 9.2, Phosphorus 3.3, Magnesium 2.0, Total Bilirubin 0.43, AST 14, ALT 9, Alkaline Phosphatase 67, Total Protein 5.6 L, Albumin 3.6, Globulin 2.0 L, Albumin/Globulin Ratio 1.8, Lipase 80 H, TSH 2.070 Radiography Diagnostic Testing: Radiology Impression Chest X-Ray 03/14/25 17:38 IMPRESSION: Probable small left pleural effusion. Otherwise stable chest radiograph. Reading Location: [facility] Abdomen/Pelvis CT 03/14/25 19:50 IMPRESSION: No acute abnormality. No abnormal fluid collections. No bowel obstruction. Limited evaluation of the pancreas without contrast Reading Location: [facility] Echocardiogram 03/15/25 00:06 Interpretation Summary The LV ejection fraction is 55 %. Left ventricular systolic function is normal. Grade 1 diastolic dysfunction Mild (1+) mitral valve insufficiency. Moderate (2+) tricuspid valve insufficiency. Ordering Physician: Ely Persaud Referring Physician: Tawanda Muñiz MD Performed By: Mercedes López RDCS D/C Instructions DC O2, CPAP, BIPAP Needs Home O2 Discharge instructions: No Meaningful Use Info Meaningful Use Meaningful Use Diagnoses (Choose all that apply): None applicable Ischemic Stroke Statin Dosing Therapy Reference: STATIN DOSE THERAPY REFERENCE: * Patients > 75 years receive moderate or high dose statin therapy. * Patients 75 years or YOUNGER should receive HIGH intensity statin dose unless contraindicated. You will be required to document reason for non-treatment if statin daily dose does not meet guidelines. HIGH DOSE STATIN THERAPY DAILY Atorvastatin > than or = to 40 mg Rosuvastatin > than or = to 20 mg Amlodipine + Atorvastatin > than or = to 2.5/40 mg Ezetimibe + Simvastatin 10/80 mg Simvastatin 80mg Discharge Plan Admission Admit Date/Time: 03/14/25 21:33 Primary Reason for Your Visit: chest pain Attending Provider: Christian Negrete Primary Care Provider: Tawanda Muñiz Consulting Providers: Ely Persaud Discharge Orders/Prescriptions Prescriptions: Continued fluticasone propion-salmeterol [Advair Diskus] 1 PUFF inhaler 1 puff inhalation BID levothyroxine 25 MCG tablet 50 mcg PO DAILY Omeprazole [Prilosec] 40 MG capsule 20 mg PO DAILY docusate sodium 100 MG capsule 100 mg PO DAILY Held lisinopril 20 MG tablet 20 mg PO DAILY Hold Instructions: Resume on 03/20/25. Hold until follow up labs are drawn. If your kidney function returns to normal, please resume. Other Ambulatory Orders: Basic Metabolic Profile (BMP) (Routine) Timeframe: 5 Days Facility: [facility] - Location: Laboratory Ordered By: Dr. Christian Negrete Referrals / Follow Up: Tawanda Muñiz MD [Primary Care Provider] - Disposition Disposition (needs filled in before D/C Order can be placed): Home, Self Care Charges/Coding Visit Charges Inpatient E&M: 88360 Disch Hosp >30min
[2025-03-15 22:29] LABS: Cholesterol 172 mg/dL (<=200); High Density Lipoprotein 55 mg/dL; Low Density Lipoprotein Calc. 106 mg/dL; Triglycerides 58 mg/dL; Very Low Density Lipoprotein 12 mg/dL (5-40); cholesterol:hdl ratio screen 3.16
== END 2025-03-15 17:58 | disposition home or self-care (01) ==
LOC: ED 22:02 → PCU 23:51
PROVIDERS: Admitting Provider Internal Medicine; Emergency Provider Surgery; PCP Family Medicine; Visit Provider Hospitalist
DX: R07.89 Other chest pain (principal); N17.9 Acute kidney failure, unspecified; I10 Essential (primary) hypertension; Z79.890 Hormone replacement therapy; I31.39 Other pericardial effusion (noninflammatory); E03.9 Hypothyroidism, unspecified; K44.9 Diaphragmatic hernia without obstruction or gangrene; Z79.51 Long term (current) use of inhaled steroids; R94.31 Abnormal electrocardiogram [ECG] [EKG]; K59.09 Other constipation; J45.909 Unspecified asthma, uncomplicated; M54.9 Dorsalgia, unspecified; R51.9 Headache, unspecified; K21.9 Gastro-esophageal reflux disease without esophagitis; M40.209 Unspecified kyphosis, site unspecified; R06.02 Shortness of breath; Z79.899 Other long term (current) drug therapy
CPT/HCPCS: 36415; 71046; 74176; 78452; 80053; 80061; 81001; 83690; 83735; 83880; 84100; 84443; 84484; 85025; 85027; 85379; 85610; 85730; 93005; 93017; 93306; 94668; 96361; 96365; 96372; 99221; 99285; A9500; A4216; G0378; J2785

== ENCOUNTER → 2025-03-25 | Outpatient (CLI) | payer MEDICARE, BC, SELFPAY ==
[2025-03-25 18:28] LABS: ALB/GLOB Ratio 1.6 RATIO (0.9-2.4); AST(SGOT) 19 U/L (<=31); Alanine Aminotransfer ALT/SGPT 16 U/L (<=34); Albumin, Serum 4.3 g/dL (3.4-4.8); Alkaline Phosphatase 76 U/L (35-104); Anion Gap 11 (5-15); BUN 13 mg/dL (4-19); BUN/Creat Ratio 10.8 RATIO (10-20); Calcium,Total 9.9 mg/dL (7.6-11.0); Carbon Dioxide 24.7 mmol/L (21.0-32.0); Chloride 105 mmol/L (98-108); Creatinine, Serum 1.18 mg/dL (0.70-1.20); EST Glomerular Filtration Rate 44 (>60); Globulin 2.7 g/dL (2.2-4.2); Glucose 96 mg/dL (70-99); Potassium 4.6 mmol/L (3.3-5.1); Sodium Level 140 mmol/L (133-145); Total Bilirubin 0.28 mg/dL (0.00-1.30)
== END | disposition home or self-care (01) ==
LOC: MFPLAB 16:37
PROVIDERS: PCP Family Medicine; Visit Provider Family Medicine
DX: I10 Essential (primary) hypertension (principal)
CPT/HCPCS: 36415; 80053

== ENCOUNTER → 2025-06-18 | Outpatient (CLI) | payer MEDICARE, BC, SELFPAY ==
[2025-06-18 12:33] LABS: Microalbumin,Random Urine < 12.0 mg/L (<20 mg/L)
[2025-06-18 12:41] LABS: AST(SGOT) 16 U/L (<=31); Alanine Aminotransfer ALT/SGPT 12 U/L (<=34); Albumin, Serum 4.1 g/dL (3.4-4.8); Alkaline Phosphatase 71 U/L (35-104); Anion Gap 10 (5-15); BUN 20 mg/dL (4-19); BUN/Creat Ratio 14.1 RATIO (10-20); Calcium,Total 10.1 mg/dL (7.6-11.0); Carbon Dioxide 24.2 mmol/L (21.0-32.0); Chloride 106 mmol/L (98-108); Cholesterol 186 mg/dL (<=200); Globulin 2.5 g/dL (2.2-4.2); Glucose 86 mg/dL (70-99); Low Density Lipoprotein Calc. 103 mg/dL; Potassium 5.0 mmol/L (3.3-5.1); Triglycerides 67 mg/dL; Very Low Density Lipoprotein 13 mg/dL (5-40); cholesterol:hdl ratio screen 2.67
== END | disposition home or self-care (01) ==
LOC: MFPLAB 09:41
PROVIDERS: PCP Family Medicine; Visit Provider Family Medicine
DX: I10 Essential (primary) hypertension (principal); E03.9 Hypothyroidism, unspecified; I70.91 Generalized atherosclerosis
CPT/HCPCS: 36415; 80053; 80061; 82043; 84443